=== PATIENT | male | born 1985 | race Caucasian/White ===

== ENCOUNTER 2025-06-24 13:46 | Inpatient (IN) | payer MEDICAID, SELFPAY ==
[2025-06-24] VITALS (9 sets, daily range): BP systolic 134–182; BP diastolic 105–149; PULSE 79–135; RESP 12–20; TEMP 36.7–36.8; O2SAT 91–98; BMI 32.9; BMI 29.0
--- NOTE | 2025-06-24 14:03 | EKG12_ITS ---
Test Reason : CP Blood Pressure : */* mmHG Vent. Rate : 133 BPM Atrial Rate : 133 BPM P-R Int : 160 ms QRS Dur : 106 ms QT Int : 272 ms P-R-T Axes : 69 112 -22 degrees QTcB Int : 404 ms Sinus tachycardia Right atrial enlargement Left posterior fascicular block ST & T wave abnormality, consider anterior ischemia Abnormal ECG No previous ECGs available Confirmed by DANI SPERA, RAMONA ([id number]), proposal editor SHARA DAVILA ([id number]) on 06/27/2025 6:27:02 AM Referred By: MIGUEL/SONAL Confirmed By: RAMONA LOUISE MD
[2025-06-24 14:26] LABS: Hematocrit 38.0 % (40-54); Hemoglobin 13.2 g/dL (13.0-16.5); Immature Granulocytes Count 0.130 X10^3/uL (0.0-0.0); Mean Corp Hgb Conc 34.7 g/dL (32-36); Mean Corpuscular Volume 103.3 fL (80-94); Mean Platelet Vol. 11.0 fl (6.2-12.0); NRBC Flagged by Analyzer 0 % (0-5); Platelet Count 302 K/mm3 (150-450); RBC Distribution Width CV 14.7 % (11.6-14.6); RBC Distribution Width SD 55.8 fl (35.1-43.9); Red Blood Count 3.68 M/mm3 (4.6-6.2); White Blood Count 13.8 K/mm3 (4.4-11.0)
--- NOTE | 2025-06-24 14:45 | RAD_ITS ---
PROCEDURE: CHEST PA AND LATERAL 06/24/2025 REASON FOR EXAM: CHEST PAIN TECHNIQUE: Procedure Code: RADCXR Modality: DX Procedure: CHEST PA AND LATERAL COMPARISON: None FINDINGS: No focal consolidation. No pleural effusion or pneumothorax. Cardiac silhouette is within normal limits. No acute fractures. RAD/Chest PA and Lateral IMPRESSION: No focal consolidation. Reading Location: [id number]
[2025-06-24] MEDS: 0.9% Normal Saline (1000mL) 1,000 ML 1000 ML IV (14:54)
--- NOTE | 2025-06-24 15:01 | EDS_ITS ---
HPI History of Present Illness Chief Complaint: Substance Abuse Narrative Narrative: Chief complaint and HPI: 39-year-old male with past medical history of alcohol abuse presents for evaluation for detox as well as multiple other complaints. Patient states he drinks about a half a gallon of liquor a day, vodka. Last drink was before EMS arrival. Patient states for the past several days he has been having episodic chest pain, shortness of breath, epigastric abdominal pain. Friend in the room states that his eyes have been yellow for the past several days. Patient denies any history of cirrhosis. He feels that his abdomen is bloated. He denies any fever, chills, nausea, vomiting, dysuria. Review of systems: See HPI Medications: As listed on the chart Allergies: As listed on the chart PFSH: Per chart Vital signs: As listed on the chart. Reviewed. Physical exam: Gen: Alert and oriented but intoxicated, anxious Head: Normocephalic, atraumatic Eyes: Jaundice, PERRL, EOMI ENT: Dry mucous membranes Neck: Trachea midline CV: Tachycardic, regular rhythm, no murmurs Resp: Lungs CTA BL, no w/r/c GI: Abd soft, mildly distended, tender to palpation in the epigastrium and right upper quadrant, no r/r Musc: Full ROM, no deformity Skin: Warm, dry, jaundice Neuro: Alert, oriented, grossly intact, sensation intact Psych: Cooperative, anxious, intoxicated [facility] Medical History (Updated 06/24/25 @ 14:32 by Guera Elizabeth) Substance abuse Alcohol abuse Irregular heart beat Home Medications ?Medication ?Instructions ?Recorded ?Last Taken ?Type NK 06/24/25 Unknown History Allergy/AdvReac Type Severity Reaction Status Date / Time No Known Allergies Allergy Verified 06/24/25 13:50 Social History Smoking Status: Former smoker EXAM Physical Exam Const Vital Signs: 06/24/25 13:46 06/24/25 14:46 06/24/25 14:55 Temperature 98.3 F Temperature Source Oral Pulse Rate 90 Respiratory Rate 16 Blood Pressure 182/149 H 136/110 H Blood Pressure Mean 160 118 Pulse Ox 98 Oxygen Delivery Method Room Air Room Air 06/24/25 15:00 06/24/25 16:00 Temperature Temperature Source Pulse Rate 105 H 131 H Respiratory Rate 18 Blood Pressure 154/112 H 154/112 H Blood Pressure Mean 126 126 Pulse Ox 91 Oxygen Delivery Method MDM MDM MDM Narrative Medical decision making narrative: 39-year-old male with past medical history of alcohol abuse presents for evaluation for detox as well as multiple other complaints. Patient states he drinks about a half a gallon of liquor a day, vodka. Last drink was before EMS arrival. Patient states for the past several days he has been having episodic chest pain, shortness of breath, epigastric abdominal pain. On presentation, patient is intoxicated and anxious. He is tachycardic and jaundice. Differential diagnosis includes but is not limited to alcohol intoxication, cirrhosis, pancreatitis, electrolyte abnormality, dehydration CHF, ACS. NS bolus, Ativan ordered for symptoms. Laboratory workup ordered including CT abdomen and pelvis. CBC with mild leukocytosis of 13.8. No anemia. Platelets unremarkable. BMP shows dehydration with mild anion gap of 16. Likely secondary to alcoholic ketosis. No GABBY. Alcohol level 319. CT abdomen pelvis shows extensive hepatic steatosis and question cirrhosis. Hepatomegaly. Moderate ascites. Acute hepatitis is not entirely excluded. Gallbladder wall is thickened which may be reactive to adjacent inflamed hepatic tissue. Scattered mild thickening of the small bowel wall which may reflect enteritis. Small hiatal hernia. INR normal. Lipase elevated at 117. No pancreatitis seen on CT abdomen pelvis. CMP shows hyperbilirubinemia with a bilirubin of 6.46. Direct bilirubin of 5.04. AST transaminitis of 251. Transaminitis is consistent with alcoholic transaminitis. Given elevation in direct bilirubin, ultrasound of the gallbladder ordered to assess for choledocholithiasis. Alkaline phosphatase elevated at 778. BNP unremarkable. Troponin unremarkable. Ultrasound of the gallbladder pending at this time. Patient signed out to oncoming physician. Plan will be for admission once ultrasound has resulted. EKG: Interpreted by me/EM physician: EKG shows sinus tachycardia with a heart rate of 133. Nonspecific ST changes. Diagnostic: Interpreted by me/EM physician: Chest x-ray doubt pneumonia, effusion, cardiomegaly, pneumothorax Impression: 1. Alcohol abuse with alcohol intoxication 2. Alcohol abuse requesting alcohol detox 3. Hyperbilirubinemia 4. Alcoholic transaminitis 5. Alcoholic ketosis Lab Data Labs: Laboratory Results - last 24 hr 06/24/25 06/24/25 06/24/25 14:10 14:30 15:42 WBC 13.8 H RBC 3.68 L Hgb 13.2 Hct 38.0 L MCV 103.3 H MCH 35.9 H MCHC 34.7 RDW Std Deviation 55.8 H RDW Coeff of Brodie 14.7 H Plt Count 302 MPV 11.0 Immature Gran % (Auto) 0.900 Neut % (Auto) 79.1 H Lymph % (Auto) 12.7 L [place] % (Auto) 6.4 Eos % (Auto) 0.3 Baso % (Auto) 0.6 Absolute Neuts (auto) 10.9 H Absolute Lymphs (auto) 1.75 Nucleated RBC % 0 PT 15.5 H INR 1.2 APTT 32.8 Sodium 134 Potassium 3.4 Chloride 97 L Carbon Dioxide 21.4 Anion Gap 16 H BUN 7 Creatinine 0.52 L Estim Creat Clear Calc 228.31 Est GFR (MDRD) Non-Af 131 BUN/Creatinine Ratio 12.6 Glucose 110 H Calcium 7.7 Total Bilirubin 6.46 H Direct Bilirubin 5.04 H AST 251 H ALT 36 Alkaline Phosphatase 778 H Troponin T High Sens < 6 Troponin T Hi Sens 2 Hr NT pro BNP II < 36 Total Protein 6.5 Albumin 2.5 L Globulin 4.0 Lipase 117 H Ethyl Alcohol 06/24/25 06/24/25 16:28 Unknown WBC RBC Hgb Hct MCV MCH MCHC RDW Std Deviation RDW Coeff of Brodie Plt Count MPV Immature Gran % (Auto) Neut % (Auto) Lymph % (Auto) [place] % (Auto) Eos % (Auto) Baso % (Auto) Absolute Neuts (auto) Absolute Lymphs (auto) Nucleated RBC % PT INR APTT Sodium Potassium Chloride Carbon Dioxide Anion Gap BUN Creatinine Estim Creat Clear Calc Est GFR (MDRD) Non-Af BUN/Creatinine Ratio Glucose Calcium Total Bilirubin Direct Bilirubin AST ALT Alkaline Phosphatase Troponin T High Sens Troponin T Hi Sens 2 Hr 7 NT pro BNP II Total Protein Albumin Globulin Lipase Ethyl Alcohol 319.0 H* Radiography Diagnostic Testing: Clinical Impression(s) from Imaging Studies Chest X-Ray 06/24/25 14:45 IMPRESSION: No focal consolidation. Reading Location: [facility] Abdomen/Pelvis CT 06/24/25 15:10 IMPRESSION: Extensive hepatic steatosis and question cirrhosis. Hepatomegaly. Moderate ascites. Acute hepatitis is not entirely excluded. Gallbladder wall is thickened which may be reactive to adjacent inflamed hepatic tissue. Scattered mild thickening of the small bowel wall which may reflect enteritis. Small hiatal hernia. Reading Location: [id number] Discharge Plan Triage Chief Complaint: Substance Abuse ED Provider: Mike Laird Dx/Rx/DC Orders Prescriptions: No Action NK Primary Care Provider: Care Physician,No Primary Referrals: Care Physician,No Primary [Primary Care Provider, Medical] Print Language: Latvian
[2025-06-24 15:07] LABS: Troponin T High Sensitivity < 6 ng/L (<=22)
[2025-06-24 15:10] LABS: Anion Gap 16 (5-15); BUN 7 mg/dL (4-19); BUN/Creat Ratio 12.6 RATIO (10-20); Calcium,Total 7.7 mg/dL (7.6-11.0); Carbon Dioxide 21.4 mmol/L (21.0-32.0); Chloride 97 mmol/L (98-108); Estimated Creatinine Clearance 228.31 ml/min (50-250); Glucose 110 mg/dL (70-99); Potassium 3.4 mmol/L (3.3-5.1)
--- NOTE | 2025-06-24 15:10 | CT_ITS ---
PROCEDURE: ABDOMEN/PELVIS W IV CONT ONLY 06/24/2025 REASON FOR EXAM: ABDOMINAL PAIN TECHNIQUE: Procedure Code: [id number] Modality: CT Procedure: ABDOMEN/PELVIS W IV CONT ONLY Coronal and Sagittal reconstruction series were provided. CONTRAST: 100 mL of Isovue 370 One or more dose reduction techniques were used (e.g., Automated exposure control, adjustment of the mA and/or kV according to patient size, use of iterative reconstruction technique. RADIATION DOSE SUMMARY: DLP: 1110 mGycm COMPARISON: None FINDINGS: Limited sections of the lung bases demonstrate no focal pulmonary mass or consolidations. Right base subsegmental atelectasis. The spleen, pancreas, and both adrenal glands demonstrate no acute findings. Hepatic steatosis with nodular liver contour which may reflect cirrhosis. Hepatomegaly to 20.8 cm. Gallbladder wall is thickened which may be reactive to adjacent inflamed hepatic tissue. Small hiatal hernia; otherwise stomach is unremarkable. Scattered mild thickening of the small bowel wall which may reflect enteritis. The appendix is not clearly identified, although there are no secondary signs of appendicitis. No colonic obstruction. Moderate ascites. No free fluid. 1.1 x 1.0 cm cyst within the left kidney. The right kidney is unremarkable. No hydronephrosis. The urinary bladder is partially distended. The pelvic structures are intact. There is no solid pelvic mass. No significant lymphadenopathy. The aorta and IVC demonstrate no acute findings. Mild atherosclerosis of the abdominal vasculature. Visualized osseous structures demonstrate no acute abnormality. CT/Abdomen/Pelvis W IV Cont ONLY IMPRESSION: Extensive hepatic steatosis and question cirrhosis. Hepatomegaly. Moderate as cites. Acute hepatitis is not entirely excluded. Gallbladder wall is thickened which may be reactive to adjacent inflamed hepati c tissue. Scattered mild thickening of the small bowel wall which may reflect enteritis. Small hiatal hernia. Reading Location: [id number]
[2025-06-24 15:38] LABS: Alcohol, Blood (Medical)-Serum 319.0 mg/dL (<=10.0)
[2025-06-24 16:03] LABS: Prothrombin Time (Protime)PT. 15.5 SECONDS (11.7-14.9)
[2025-06-24 16:04] LABS: Partial Thromboplast Time 32.8 Seconds (24.1-36.2)
[2025-06-24] MEDS: Famotidine 200 MG/20 ML MDV 20 MG in 0.9% Normal Saline (Pres. free 8 ML 300 MG IV (16:13)
[2025-06-24 16:22] LABS: AST(SGOT) 251 U/L (<=37); Alanine Aminotransfer ALT/SGPT 36 U/L (<=46); Albumin, Serum 2.5 g/dL (3.5-5.0); Alkaline Phosphatase 778 U/L (40-129); Bilirubin, Direct 5.04 mg/dL (0.00-0.30); Globulin 4.0 g/dL (2.2-4.2); Lipase 117 U/L (13-75)
[2025-06-24 16:23] LABS: Pro- Brain NATRIURETIC PEPTIDE < 36 pg/mL (<=450)
--- NOTE | 2025-06-24 16:27 | US_ITS ---
PROCEDURE: GALLBLADDER 06/24/2025 REASON FOR EXAM: HYPERBILIRUBINEMIA COMPARISON: Same day CT on 06/24/2025 FINDINGS: GALLBLADDER: No gallstones. Gallbladder sludge noted. Mild thickening of the gallbladder to 3.6 mm. No pericholecystic fluid. Negative Draper sign. Question nodular liver contour. COMMON BILE DUCT: Measures 10.2 Mm. No intrahepatic biliary dilatation. LIVER: Enlarged to 19.9 cm. Increased echogenicity. No definite hepatic mass. RIGHT KIDNEY: Normal in size and echogenicity. No mass. No urinary stones. No hydronephrosis. Pancreas: Not well visualized. Ascites noted. US/Gallbladder IMPRESSION: Hepatomegaly and hepatic steatosis. Question nodular liver contour which may r eflect cirrhosis. Nonspecific dilation of the CBD. Ascites noted. No acute cholecystitis. Reading Location: [id number]
--- NOTE | 2025-06-24 17:02 | ED.RN ---
this RN went into room to medicate with pain/nausea meds. Pt. has urinated all over self and floor and was attempting to clean up. Pt. was ambulate to bathroom and given fresh sheets and blankets and a bag for dirty clothes.
--- NOTE | 2025-06-24 17:09 | CM.ED ---
Social work Reason for referral: no PCP Referral source: case find SW entered patient's room, introducing self and role at [facility]. Patient welcomed SW visit and was observed laying on side in bed. Patient confirmed not having a PCP and accepted resources of [facility] Provider Directory and Kim Maxwell information. Patient was observed having slurred speech and patient was quick to dismiss SW from room when asking if further resources were needed at this time. Of note, patient is intoxicated at this time; SW to follow as needed. Azucena Botello, [employer] OPERATOR HELPER, EMANATIONS ANALYSIS TECHNICIAN
[2025-06-24 17:21] LABS: Troponin T High Sens 2 HR 7 ng/L (<=22)
--- NOTE | 2025-06-24 18:54 | PCM.HP.STD ---
HPI - General General Date of Admission: 06/24/25 Date of Service: 06/24/25 Chief Complaint: Alcohol detox HPI Narrative YUDI MCGOWAN, is a 39 M who presented to the emergency department at [facility] 06/24/2025 requesting detox from alcohol. Patient states he has been drinking heavily for the last 2 years. He states he drink intermittently before and he has had substance abuse problems previously with cocaine and went through a stent and inpatient rehab for that forced by his parents to be able to come back to work. He stated within the last 2 years he has been heavily drinking at least a half a gallon of vodka every 2 days. His last drink was just prior to presentation. He has never been through alcohol detox previously. He has never had seizure. He is currently unemployed. Vital signs on presentation showed temperature 98, heart rate 105, blood pressure 136/110, respiratory was 18 and pulse ox was 91 to 96% on room air. CBC shows a leukocytosis with a white count of 13.8 and a left shift with a 79.1% neutrophilia. Coags show a mildly elevated PTT at 15.5. Chemistry panel shows normal renal function electrolytes however he has markedly abnormal liver functions with a total bilirubin of 6.46, direct bilirubin of 5.04 and an AST of 251. His alk phos is 778. Troponin is negative x 3. proBNP is 36 and lipase was 117. Ethyl alcohol level was 319. EKG shows sinus tachycardia. Chest x-ray shows no focal consolidation. CT of the abdomen pelvis showed extensive hepatosteatosis with questionable cirrhosis, hepatomegaly, moderate ascites, thickening of the gallbladder wall, mild thickening of the small bowel and small hiatal hernia. Gallbladder ultrasound showed nonspecific dilation of the common bile duct with ascites and no acute cholecystitis, liver contour was suggestive of cirrhosis. Patient will be admitted to general medical floor for what is to be expected greater than 2 midnights for alcohol detox. [facility] Medical History Anxiety Depression Hypertension GERD (gastroesophageal reflux disease) Substance abuse Alcohol abuse Irregular heart beat Home Medications ?Medication ?Instructions ?Recorded ?Last Taken ?Type NK 06/24/25 Unknown History Allergy/AdvReac Type Severity Reaction Status Date / Time No Known Allergies Allergy Verified 06/24/25 13:50 no significant family history no surgical history Social History (Updated 06/24/25 @ 21:[address] Sasha Alegre, DO) Smoking Status: Former smoker alcohol intake: current alcohol intake frequency: other Alcohol type: hard liquor details: Patient drinks 1 gallon of vodka every 2 days substance use type: former substance user Date of last use: Cocaine ROS Constitutional Constitutional: Denies anorexia, change in weight, chills, fatigue, fever(s), malaise, night sweats, weakness or other Eyes Eyes: Denies blurry vision, change in eye color, change in vision, discharge from eye(s), double vision, erythema, eye pain, loss of vision or other ENT HEENT: Denies abnormal hearing, dysphagia, ear pain, epistaxis, headache(s), hearing loss, nasal congestion, nasal discharge, post nasal drip, sinus pressure, sore throat or other Cardiovascular Cardiovascular: Denies chest pain, claudication, dyspnea on exertion, edema, lightheadedness, orthopnea, palpitations, paroxysmal nocturnal dyspnea, rapid heart rate, syncope or other Respiratory/Chest Respiratory/Chest: Denies cough, dyspnea, excessive phlegm production, hemoptysis, productive cough, shortness of breath at rest, shortness of breath with exertion, wheezing or other Gastrointestinal Gastrointestinal: Reports abdominal pain and nausea; Denies coffee ground emesis, constipation, diarrhea, dyspepsia, hematemesis, hematochezia, loose stools, melena, vomiting or other Genitourinary Genitourinary: Denies burning urination, difficulty urinating, dysuria, hematuria, nocturia, urinary frequency, urinary hesitancy, urinary incontinence, urinary urgency or other Musculoskeletal Musculoskeletal: Denies arthralgias, back pain, joint pain, joint stiffness, joint swelling, myalgias, neck pain or other Neurologic Neurologic: Denies abnormal gait, abnormal speech, confusion, disequilibrium, dizziness, focal weakness, headache(s), numbness, paresthesias, seizure-like activity, seizures, syncope, tingling, tremor(s) or other Psychiatric Psychiatric: Denies anxiety, depression, homicidal ideation, suicidal ideation or other Endocrine Endocrinology: Denies change in body appearance, cold intolerance, excessive sweating, heat intolerance, polydipsia, polyuria or other Hematologic/Lymphatic Hematologic/Lymphatic: Denies anemia, easy bleeding, easy bruising, lymphadenopathy or other Allergic/Immunologic Allergic/Immunologic: Denies rhinitis, hives, eczemia, asthma or other Vital Signs Vital Signs Vital Signs: 06/24/25 13:46 06/24/25 14:46 06/24/25 14:55 Temperature 98.3 F Temperature Source Oral Pulse Rate 90 Respiratory Rate 16 Blood Pressure 182/149 H 136/110 H Blood Pressure Mean 160 118 Pulse Ox 98 Oxygen Delivery Method Room Air Room Air 06/24/25 15:00 06/24/25 16:00 06/24/25 18:07 Temperature Temperature Source Pulse Rate 105 H 131 H 135 H Respiratory Rate 18 18 Blood Pressure 154/112 H 154/112 H 168/124 H Blood Pressure Mean 126 126 138 Pulse Ox 91 96 Oxygen Delivery Method Room Air Weight Weight: 104.2 kg Body Mass Index (BMI) 32.9 Physical Exam Const alert, oriented x3 and well nourished; Negative for average body habitus or healthy appearing Constitutional Narrative: Overweight, tremulous, middle-aged, white male, walking around room putting his gown on, appears slightly confused but cooperative, does not appear toxic, does look older than stated age General Appearance: cooperative HEENT normocephalic, head/scalp atraumatic, hearing grossly normal bilaterally and moist oral mucous membranes HEENT Narrative: Mallampati 2-3, no thrush Resp normal respiratory effort, no retractions, no use of accessory muscles and clear to auscultation bilaterally Auscultation: Negative for rales, rhonchi or wheezes Cardio regular rhythm, S1 normal heart sound, S2 normal heart sound, no murmurs, no rub, no gallops and no clicks; Negative for regular rate Cardio Narrative: Tachycardic GI normal to inspection, nondistended, normoactive bowel sounds and soft to palpation GI Narrative: Mild tenderness in epigastrium, no rebound Extremity no clubbing, cyanosis or edema Extremity Narrative: 2+ pedal pulses Neuro moves all extremities and no focal motor deficits Neuro Narrative: Mild tremor, ambulates independently, speech is slightly slurred due to intoxication Psych affect normal Psych Narrative: Thankful for treatment, interacts appropriately Results Lab / Micro Data 06/24/25 14:10 06/24/25 14:30 Labs: Laboratory Results - last 24 hr 06/24/25 14:10: WBC 13.8 H, RBC 3.68 L, Hgb 13.2, Hct 38.0 L, MCV 103.3 H, MCH 35.9 H, MCHC 34.7, RDW Std Deviation 55.8 H, RDW Coeff of Brodie 14.7 H, Plt Count 302, MPV 11.0, Immature Gran % (Auto) 0.900, Neut % (Auto) 79.1 H, Lymph % (Auto) 12.7 L, [place] % (Auto) 6.4, Eos % (Auto) 0.3, Baso % (Auto) 0.6, Absolute Neuts (auto) 10.9 H, Absolute Lymphs (auto) 1.75, Nucleated RBC % 0 06/24/25 14:30: Sodium 134, Potassium 3.4, Chloride 97 L, Carbon Dioxide 21.4, Anion Gap 16 H, BUN 7, Creatinine 0.52 L, Estim Creat Clear Calc 228.31, Est GFR (MDRD) Non-Af 131, BUN/Creatinine Ratio 12.6, Glucose 110 H, Calcium 7.7, Troponin T High Sens < 6 06/24/25 15:42: PT 15.5 H, INR 1.2, APTT 32.8, Total Bilirubin 6.46 H, Direct Bilirubin 5.04 H, AST 251 H, ALT 36, Alkaline Phosphatase 778 H, NT pro BNP II < 36, Total Protein 6.5, Albumin 2.5 L, Globulin 4.0, Lipase 117 H 06/24/25 16:28: Troponin T Hi Sens 2 Hr 7 06/24/25 : Ethyl Alcohol 319.0 H* Imaging Radiology Impression Chest X-Ray 06/24/25 14:45 IMPRESSION: No focal consolidation. Reading Location: [facility] Abdomen/Pelvis CT 06/24/25 15:10 IMPRESSION: Extensive hepatic steatosis and question cirrhosis. Hepatomegaly. Moderate ascites. Acute hepatitis is not entirely excluded. Gallbladder wall is thickened which may be reactive to adjacent inflamed hepatic tissue. Scattered mild thickening of the small bowel wall which may reflect enteritis. Small hiatal hernia. Reading Location: [facility] Gallbladder Ultrasound 06/24/25 16:27 IMPRESSION: Hepatomegaly and hepatic steatosis. Question nodular liver contour which may reflect cirrhosis. Nonspecific dilation of the CBD. Ascites noted. No acute cholecystitis. Reading Location: [id number] Assessment & Plan Assessment/Plan (1) Admitted to alcohol detoxification center: (2) Alcohol abuse: (3) Alcoholic hepatitis: (4) Leukocytosis: (5) Tachycardia: PLAN: Plan Alcohol abuse with pending alcohol withdrawal - Patient drinks a gallon of vodka every 2 days - Has never been through alcohol detoxification previously - Phenobarbital taper as ordered - As needed Ativan with CIWA - Supportive medications for symptoms related alcohol withdrawal - Start thiamine and folate - 180 consultation for assistance with discharge planning - case management/social work consultation for assistance with discharge planning Alcoholic hepatitis/cirrhosis - Patient with markedly elevated LFTs and bilirubin - Maddrey score is 24 so not a candidate for steroids - Patient does have moderate ascites and may need to start diuretic once he is more clinically stable - Could consider nadolol as well - Suggest referral to GI after discharge Leukocytosis - Suspect reactive - No signs of infection - Monitor clinically with repeat lab in a.m. Tachycardia - Related to alcohol withdrawal - Monitor History of cocaine abuse - Patient denies any ongoing use since he has gone through rehab DVT prophylaxis - Low risk - Encourage frequent and early ambulation CODE STATUS - Full code Charges/Coding Visit Charges Inpatient E&M: 81022 Init Hosp L2
[2025-06-24 19:16] LABS: Troponin T High Sens 4 HR 8 ng/L (<=22)
[2025-06-24] MEDS: 0.9% Saline Lock 10 ML Syringe IV (20:31)
[2025-06-24] MEDS: Lactated Ringers 1,000 ML 100 ML IV (20:31)
[2025-06-25] VITALS (7 sets, daily range): BP systolic 146–166; BP diastolic 115–130; PULSE 80–128; RESP 16–18; TEMP 36.5–37.7; O2SAT 95–98; BMI 29.0
[2025-06-25 00:35] LABS: Color, Urine Amber (Yellow); Glucose, Dipstick Normal (Normal); Ketone-Dipstick Negative (Negative); Leukocyte Esterase-Dipstick 25 /ul (Negative); Nitrite-Dipstick Positive (Negative); Occult Blood-Urine 10 /ul (Negative); Protein-Dipstick 30 mg/dl (Negative); Specific Gravity, Urine 1.015 (1.002-1.030)
[2025-06-25 00:41] LABS: Urine Bilirubin Dipstick 6 mg/dL (Negative)
[2025-06-25 00:45] LABS: Mucous, Urine 1+ /hpf (<or=2+); Red Blood Cells-Urine 0-5 SEEN /hpf (0-5); Squamous Epithelial Cells - UA 0-5 SEEN /hpf (0-5)
[2025-06-25 01:21] LABS: Barbiturate Urine NEGATIVE (< 200 ng/mL); Benzodiazepine Urine PRESUMPTIVE POSITIVE (< 200 ng/mL); PCP Urine NEGATIVE (< 25 ng/mL); THC Urine NEGATIVE (< 50 ng/mL)
[2025-06-25 06:55] LABS: Hematocrit 35.3 % (40-54); Hemoglobin 11.9 g/dL (13.0-16.5); Immature Granulocytes Count 0.060 X10^3/uL (0.0-0.0); Mean Corp Hgb Conc 33.7 g/dL (32-36); Mean Corpuscular Volume 103.8 fL (80-94); Mean Platelet Vol. 11.0 fl (6.2-12.0); NRBC Flagged by Analyzer 0 % (0-5); Platelet Count 215 K/mm3 (150-450); RBC Distribution Width CV 14.8 % (11.6-14.6); RBC Distribution Width SD 56.5 fl (35.1-43.9); Red Blood Count 3.40 M/mm3 (4.6-6.2); White Blood Count 10.3 K/mm3 (4.4-11.0)
[2025-06-25] MEDS: hydrOXYzine PAM 25 MG Capsule 50 MG PO (07:02)
[2025-06-25] MEDS: 0.9% Saline Lock 10 ML Syringe IV ×3 (07:02→21:45)
[2025-06-25 07:19] LABS: AST(SGOT) 226 U/L (<=37); Alanine Aminotransfer ALT/SGPT 35 U/L (<=46); Albumin, Serum 2.5 g/dL (3.5-5.0); Alkaline Phosphatase 766 U/L (40-129); Anion Gap 14 (5-15); BUN 7 mg/dL (4-19); BUN/Creat Ratio 14.7 RATIO (10-20); Calcium,Total 7.7 mg/dL (7.6-11.0); Carbon Dioxide 21.1 mmol/L (21.0-32.0); Chloride 99 mmol/L (98-108); Estimated Creatinine Clearance 223.67 ml/min (50-250); Globulin 3.9 g/dL (2.2-4.2); Glucose 92 mg/dL (70-99); Magnesium 1.6 mg/dL (1.5-2.2); Potassium 3.7 mmol/L (3.3-5.1)
[2025-06-25] MEDS: Thiamine Hydrochloride 100 MG Tablet PO (08:31)
--- NOTE | 2025-06-25 10:26 | PCM.PN.HOSP ---
Subjective Subjective A little hypertensive overnight but his CIWA score is a 9 if he remains hypertensive as his CIWA score normalizes may consider adjusting medications Objective Data Objective Data Vital Signs: Vital Signs Temp Pulse Resp BP Pulse Ox O2 Del Method 97.7 F L 124 H 18 166/127 H 95 Room Air 06/25/25 08:34 06/25/25 08:34 06/25/25 08:34 06/25/25 08:34 06/25/25 08:34 06/25/25 08:34 Oxygen Delivery Method Room Air Weight: 202 lb 6.15 oz Body Mass Index (BMI) 29.0 Intake & Output: Intake and Output for Last 24 Hours 06/24/25 06/25/25 06/26/25 03:59 03:59 03:59 Intake Total 1010 / 1010 1600 / 1600 Output Total 400 / 400 Balance 1010 / 1010 1200 / 1200 Lab / Micro Data 06/25/25 06:25 06/25/25 06:25 Labs: Laboratory Results - last 24 hr 06/24/25 14:10: WBC 13.8 H, RBC 3.68 L, Hgb 13.2, Hct 38.0 L, MCV 103.3 H, MCH 35.9 H, MCHC 34.7, RDW Std Deviation 55.8 H, RDW Coeff of Brodie 14.7 H, Plt Count 302, MPV 11.0, Immature Gran % (Auto) 0.900, Neut % (Auto) 79.1 H, Lymph % (Auto) 12.7 L, [place] % (Auto) 6.4, Eos % (Auto) 0.3, Baso % (Auto) 0.6, Absolute Neuts (auto) 10.9 H, Absolute Lymphs (auto) 1.75, Nucleated RBC % 0 06/24/25 14:30: Sodium 134, Potassium 3.4, Chloride 97 L, Carbon Dioxide 21.4, Anion Gap 16 H, BUN 7, Creatinine 0.52 L, Estim Creat Clear Calc 228.31, Est GFR (MDRD) Non-Af 131, BUN/Creatinine Ratio 12.6, Glucose 110 H, Calcium 7.7, Troponin T High Sens < 6 06/24/25 15:42: PT 15.5 H, INR 1.2, APTT 32.8, Total Bilirubin 6.46 H, Direct Bilirubin 5.04 H, AST 251 H, ALT 36, Alkaline Phosphatase 778 H, NT pro BNP II < 36, Total Protein 6.5, Albumin 2.5 L, Globulin 4.0, Lipase 117 H 06/24/25 16:28: Troponin T Hi Sens 2 Hr 7 06/24/25 18:26: Troponin T Hi Sens 4Hr 8 06/24/25 : Ethyl Alcohol 319.0 H* 06/25/25 00:23: Urine Color Eli, Urine Clarity Clear, Urine pH 6.5, Ur Specific [place] 1.015, Urine Protein 30 H, Urine Glucose (UA) Normal, Urine Ketones Negative, Urine Occult Blood 10 H, Urine Nitrite Positive H, Urine Bilirubin 6 H, Urine Urobilinogen 12 H, Ur Leukocyte Esterase 25 H, Urine RBC 0-5 SEEN, Urine WBC 0 SEEN, Ur Squamous Epith Cells 0-5 SEEN, Amorphous Sediment 1+, Urine Bacteria 2+, Urine Mucus 1+, Urine Opiates Screen PRESUMPTIVE POSITIVE, U Buprenorphine Qual NEGATIVE, Ur Oxycodone Screen NEGATIVE, Urine Methadone Screen NEGATIVE, Urine Fentanyl Screen NEGATIVE, Ur Barbiturates Screen NEGATIVE, Ur Phencyclidine Scrn NEGATIVE, Ur Amphetamines Screen PRESUMPTIVE POSITIVE, U Benzodiazepines Scrn PRESUMPTIVE POSITIVE, Urine Cocaine Screen NEGATIVE, U Cannabinoids Screen NEGATIVE 06/25/25 06:25: WBC 10.3, RBC 3.40 L, Hgb 11.9 L, Hct 35.3 L, MCV 103.8 H, MCH 35.0 H, MCHC 33.7, RDW Std Deviation 56.5 H, RDW Coeff of Brodie 14.8 H, Plt Count 215, MPV 11.0, Immature Gran % (Auto) 0.600, Neut % (Auto) 80.4 H, Lymph % (Auto) 9.9 L, [place] % (Auto) 8.3, Eos % (Auto) 0.2, Baso % (Auto) 0.6, Absolute Neuts (auto) 8.3 H, Absolute Lymphs (auto) 1.01, Nucleated RBC % 0, Sodium 134, Potassium 3.7, Chloride 99, Carbon Dioxide 21.1, Anion Gap 14, BUN 7, Creatinine 0.50 L, Estim Creat Clear Calc 223.67, Est GFR (MDRD) Non-Af 132, BUN/Creatinine Ratio 14.7, Glucose 92, Calcium 7.7, Phosphorus 2.0 L, Magnesium 1.6, Total Bilirubin 6.97 H, AST 226 H, ALT 35, Alkaline Phosphatase 766 H, Total Protein 6.5, Albumin 2.5 L, Globulin 3.9, Albumin/Globulin Ratio 0.6 L, TSH 3.940 Radiography Diagnostic Testing: Radiology Impression Chest X-Ray 06/24/25 14:45 IMPRESSION: No focal consolidation. Reading Location: [facility] Abdomen/Pelvis CT 06/24/25 15:10 IMPRESSION: Extensive hepatic steatosis and question cirrhosis. Hepatomegaly. Moderate ascites. Acute hepatitis is not entirely excluded. Gallbladder wall is thickened which may be reactive to adjacent inflamed hepatic tissue. Scattered mild thickening of the small bowel wall which may reflect enteritis. Small hiatal hernia. Reading Location: [facility] Gallbladder Ultrasound 06/24/25 16:27 IMPRESSION: Hepatomegaly and hepatic steatosis. Question nodular liver contour which may reflect cirrhosis. Nonspecific dilation of the CBD. Ascites noted. No acute cholecystitis. Reading Location: [facility] Physical Exam Narrative General: Alert, Oriented x3, Cooperative, mild restlessness HEENT: Atraumatic, PERRLA, EOMI, Normocephalic Oral: Moist Mucosa Neck: Supple, No JVD Lungs: Clear to auscultation, Normal air movement, No rhonchi, No wheeze, No rales Cardiovascular: Regular rate, Regular Rhythm, Normal S1, Normal S2, No murmurs Abdomen: Soft, Non Tender, Non-Distended, No Hepato-splenomegaly Extremities: No edema, Capillary Refill Less than 3 Seconds Skin: No rashes, No breakdown Musculoskeletal: No Tenderness to Palpation of Joints or Extremities Neurological: No focal neurological deficits, moves all extremities, slight tremors Psych/Mental Status: Anxious Assessment & Plan Assessment/Plan (1) Alcohol abuse: PLAN: Plan 1. Alcohol abuse requesting detox with alcoholic hepatitis with a reactive leukocytosis ? CIWA score of 9 today ? Continue with the alcohol withdrawal protocol ? Will follow CMP in the morning, bilirubin still little bit elevated though does not require steroids at this time 2. Hypophosphatemia ? Will replace with potassium phosphate today DVT: Ambulation Charges/Coding Visit Charges Inpatient E&M: 94476 Subs Hosp L2
[2025-06-25] MEDS: Potassium Phosphate 21 MM in 0.9% Normal Saline (250mL Bag) 250 ML 84 MM IV (11:16)
[2025-06-26 04:05] VITALS: BP 146/119; PULSE 135; RESP 18; TEMP 37; O2SAT 99
[2025-06-26 06:00] VITALS: BMI 29.8
[2025-06-26 07:06] LABS: AST(SGOT) 192 U/L (<=37); Alanine Aminotransfer ALT/SGPT 31 U/L (<=46); Albumin, Serum 2.5 g/dL (3.5-5.0); Alkaline Phosphatase 756 U/L (40-129); Anion Gap 12 (5-15); BUN 7 mg/dL (4-19); BUN/Creat Ratio 12.2 RATIO (10-20); Calcium,Total 7.9 mg/dL (7.6-11.0); Carbon Dioxide 22.2 mmol/L (21.0-32.0); Chloride 97 mmol/L (98-108); Estimated Creatinine Clearance 202.38 ml/min (50-250); Globulin 4.0 g/dL (2.2-4.2); Glucose 104 mg/dL (70-99); Potassium 3.4 mmol/L (3.3-5.1)
[2025-06-26 07:46] VITALS: O2SAT 94
[2025-06-26 08:59] VITALS: BP 147/116; PULSE 134; RESP 18; TEMP 36.8; O2SAT 96
[2025-06-26] MEDS: Thiamine Hydrochloride 100 MG Tablet PO (09:04)
--- NOTE | 2025-06-26 09:11 | PCM.PN.HOSP ---
Subjective Subjective CIWA score of 8, blood pressures are still mildly elevated Objective Data Objective Data Vital Signs: Vital Signs Temp Pulse Resp BP Pulse Ox O2 Del Method 98.2 F 134 H 18 147/116 H 96 Room Air 06/26/25 08:59 06/26/25 08:59 06/26/25 08:59 06/26/25 08:59 06/26/25 08:59 06/26/25 08:59 Oxygen Delivery Method Room Air Weight: 208 lb 5.389 oz Body Mass Index (BMI) 29.8 Intake & Output: Intake and Output for Last 24 Hours 06/25/25 06/26/25 06/27/25 03:59 03:59 03:59 Intake Total 1010 / 1010 3157 / 3157 500 / 500 Output Total 1200 / 1200 Balance 1010 / 1010 1957 / 1957 500 / 500 Lab / Micro Data 06/25/25 06:25 06/26/25 06:06 Labs: Laboratory Results - last 24 hr 06/26/25 06:06: Sodium 131 L, Potassium 3.4, Chloride 97 L, Carbon Dioxide 22.2, Anion Gap 12, BUN 7, Creatinine 0.56 L, Estim Creat Clear Calc 202.38, Est GFR (MDRD) Non-Af 128, BUN/Creatinine Ratio 12.2, Glucose 104 H, Calcium 7.9, Total Bilirubin 8.37 H, AST 192 H, ALT 31, Alkaline Phosphatase 756 H, Total Protein 6.5, Albumin 2.5 L, Globulin 4.0, Albumin/Globulin Ratio 0.6 L Physical Exam Narrative General: Alert, Oriented x3, Cooperative, mild restlessness HEENT: Atraumatic, PERRLA, EOMI, Normocephalic Oral: Moist Mucosa Neck: Supple, No JVD Lungs: Clear to auscultation, Normal air movement, No rhonchi, No wheeze, No rales Cardiovascular: Regular rate, Regular Rhythm, Normal S1, Normal S2, No murmurs Abdomen: Soft, Non Tender, Non-Distended, No Hepato-splenomegaly Extremities: No edema, Capillary Refill Less than 3 Seconds Skin: No rashes, No breakdown Musculoskeletal: No Tenderness to Palpation of Joints or Extremities Neurological: No focal neurological deficits, moves all extremities, slight tremors Psych/Mental Status: Anxious Assessment & Plan Assessment/Plan (1) Alcohol abuse: PLAN: Plan 1. Alcohol abuse requesting detox with alcoholic hepatitis with a reactive leukocytosis ? CIWA score of 9 today ? Continue with the alcohol withdrawal protocol ? Will follow CMP in the morning, bilirubin still little bit elevated though does not require steroids at this time DVT: Ambulation Charges/Coding Visit Charges Inpatient E&M: 42334 Subs Hosp L2
[2025-06-26] MEDS: Polyethylene Glycol 3350 17 GM PACKET PO ×2 (10:04→20:43)
[2025-06-26 14:00] VITALS: BP 144/119; PULSE 133; RESP 18; TEMP 36.2; O2SAT 98
[2025-06-26 20:35] VITALS: BP 146/127; PULSE 139; RESP 18; TEMP 37.1; O2SAT 94
[2025-06-27 02:22] VITALS: BP 127/91; PULSE 127; RESP 18; TEMP 37.4; O2SAT 100
[2025-06-27 06:00] VITALS: BMI 29.9
[2025-06-27 07:05] LABS: AST(SGOT) 232 U/L (<=37); Alanine Aminotransfer ALT/SGPT 29 U/L (<=46); Albumin, Serum 2.5 g/dL (3.5-5.0); Alkaline Phosphatase 735 U/L (40-129); Anion Gap 12 (5-15); BUN 7 mg/dL (4-19); BUN/Creat Ratio 11.1 RATIO (10-20); Calcium,Total 8.0 mg/dL (7.6-11.0); Carbon Dioxide 23.5 mmol/L (21.0-32.0); Chloride 97 mmol/L (98-108); Estimated Creatinine Clearance 171.97 ml/min (50-250); Globulin 4.0 g/dL (2.2-4.2); Glucose 96 mg/dL (70-99); Potassium 3.3 mmol/L (3.3-5.1)
[2025-06-27 07:34] VITALS: O2SAT 93
[2025-06-27] MEDS: Polyethylene Glycol 3350 17 GM PACKET PO (08:18)
[2025-06-27] MEDS: Thiamine Hydrochloride 100 MG Tablet PO (08:18)
[2025-06-27 08:23] VITALS: BP 132/90; PULSE 124; RESP 18; TEMP 36.2; O2SAT 98
--- NOTE | 2025-06-27 10:38 | DCINST_ITS ---
Discharge Instructions DC O2, CPAP, BIPAP needs Home O2 Discharge instructions: No Dressing / Incision Discharge Activity: Return to Normal Activity Dressing / Incision Call your doctor if you observe: Fever of 101 or Higher, Shortness of breath, Dizziness, Fainting spells, Swelling in the ankles, Chest pain and Increased palpitations (irregular heartbeat) Follow Up Care Test Results: Test results from this visit will be discussed in further detail at your follow- up appointment, if applicable. Discharge Plan Admission Admit Date/Time: 06/24/25 18:48 Attending Provider: J Carlos Chamberlain Primary Care Provider: Care Physician,No Primary Consulting Providers: Sasha Alegre Discharge Orders/Prescriptions Prescriptions: No Action NK Referrals / Follow Up: Care Physician,No Primary [Primary Care Provider, Medical] Disposition Disposition (needs filled in before D/C Order can be placed): Home, Self Care
--- NOTE | 2025-06-27 10:44 | CASEMGMT ---
Social Work- SW provided resources for [facility] transportation and mental health counseling, as pt reported to nurse that he has anxiety. Pt reports no other needs at this time. SW remains available to follow. JULIANNE Gómez
--- NOTE | 2025-06-27 14:16 | DS.PCM_ITS ---
Providers Date of Admission: 06/24/25 Primary Care Physician: No Primary Care Phys Reason For Visit: ETOH DETOX Diagnosis Discharge Diagnosis (1) Alcohol abuse: Status: Acute Code(s): F10.10 - Alcohol abuse, uncomplicated Medications at Discharge Home Medications NK 06/24/25 Hospital Course Operations None Procedures None Summary of Care Provided Minutes Spent on Discharge: 39 Hospital Course: Per HPI: YUDI MCGOWAN, is a 39 M who presented to the emergency department at [facility] 06/24/2025 requesting detox from alcohol. Patient states he has been drinking heavily for the last 2 years. He states he drink intermittently before and he has had substance abuse problems previously with cocaine and went through a stent and inpatient rehab for that forced by his parents to be able to come back to work. He stated within the last 2 years he has been heavily drinking at least a half a gallon of vodka every 2 days. His last drink was just prior to presentation. He has never been through alcohol detox previously. He has never had seizure. He is currently unemployed. Vital signs on presentation showed temperature 98, heart rate 105, blood pressure 136/110, respiratory was 18 and pulse ox was 91 to 96% on room air. CBC shows a leukocytosis with a white count of 13.8 and a left shift with a 79.1% neutrophilia. Coags show a mildly elevated PTT at 15.5. Chemistry panel shows normal renal function electrolytes however he has markedly abnormal liver functions with a total bilirubin of 6.46, direct bilirubin of 5.04 and an AST of 251. His alk phos is 778. Troponin is negative x 3. proBNP is 36 and lipase was 117. Ethyl alcohol level was 319. EKG shows sinus tachycardia. Chest x- ray shows no focal consolidation. CT of the abdomen pelvis showed extensive hepatosteatosis with questionable cirrhosis, hepatomegaly, moderate ascites, thickening of the gallbladder wall, mild thickening of the small bowel and small hiatal hernia. Gallbladder ultrasound showed nonspecific dilation of the common bile duct with ascites and no acute cholecystitis, liver contour was suggestive of cirrhosis. Patient will be admitted to general medical floor for what is to be expected greater than 2 midnights for alcohol detox. Hospital Course: 1. Alcohol abuse requesting detox with alcoholic hepatitis and reactive leukocytosis?39-year-old male presented to the hospital requesting detox from alcohol. He states that he been drinking heavily for the last 2 years and that he had been drinking approximately half gallon of vodka every 2 days. He is never had a seizure with alcohol withdrawal and his last drink was just prior to being admitted. Unfortunately upon admission he refused to be part of the rehab program and in discussions he did not want to pursue either inpatient rehab or outpatient rehab. He wants to try to do it on his own. It was noted that he had elevated LFTs consistent with alcoholic hepatitis though the Madrey score was not significant enough to start him on steroids. It was discussed with him the severity of his illness but he did not seem to be too interested. CT of the abdomen and pelvis did show extensive hepatosteatosis with possible cirrhosis and moderate ascites. Over the last 2 days I had extensive discussions with him about the severity of his illness and the need to follow-up with gastroenterology, he does not want to, he thinks that he will be fine on his own and that he will be able to quit drinking and that will improve everything. We did discuss that quitting drinking will significantly help his situation but I highlighted to him that he may need significant help in this process which he denies. Unfortunately he has capacity to make his decisions and he requested to be discharged today I discussed with him the possibility of discharge and he expressed understanding of the risks and benefits of going home and would like to go home today. He did verbalize that he will quit drinking because he understands that if he continues drinking it could kill him. I recommend that he follow-up with his PCP and I recommend that he follow-up with gastroenterology as well. Physical Exam Narrative General: Alert, Oriented x3, Cooperative, mild restlessness HEENT: Atraumatic, PERRLA, EOMI, Normocephalic Oral: Moist Mucosa Neck: Supple, No JVD Lungs: Clear to auscultation, Normal air movement, No rhonchi, No wheeze, No rales Cardiovascular: Regular rate, Regular Rhythm, Normal S1, Normal S2, No murmurs Abdomen: Soft, Non Tender, Non-Distended, No Hepato-splenomegaly Extremities: No edema, Capillary Refill Less than 3 Seconds Skin: No rashes, No breakdown Musculoskeletal: No Tenderness to Palpation of Joints or Extremities Neurological: No focal neurological deficits, moves all extremities, slight tremors Psych/Mental Status: Anxious and a little flat Weight / BMI Weight Weight: 208 lb 15.971 oz Body Mass Index (BMI) 29.9 ABG / Lab / Microbiology Data 06/25/25 06:25 06/27/25 05:32 Laboratory: Laboratory Results - last 24 hr 06/27/25 05:32: Sodium 132 L, Potassium 3.3, Chloride 97 L, Carbon Dioxide 23.5, Anion Gap 12, BUN 7, Creatinine 0.66 L, Estim Creat Clear Calc 171.97, Est GFR (MDRD) Non-Af 121, BUN/Creatinine Ratio 11.1, Glucose 96, Calcium 8.0, Total Bilirubin 8.69 H, AST 232 H, ALT 29, Alkaline Phosphatase 735 H, Total Protein 6.5, Albumin 2.5 L, Globulin 4.0, Albumin/Globulin Ratio 0.6 L D/C Instructions Call your doctor if you observe: Fever of 101 or Higher, Shortness of breath, Dizziness, Fainting spells, Swelling in the ankles, Chest pain and Increased palpitations (irregular heartbeat) DC O2, CPAP, BIPAP Needs Home O2 Discharge instructions: No Meaningful Use Info Meaningful Use Meaningful Use Diagnoses (Choose all that apply): None applicable Discharge Plan Admission Admit Date/Time: 06/24/25 18:48 Attending Provider: J Carlos Chamberlain Primary Care Provider: Care Physician,No Primary Consulting Providers: Sasha Alegre Discharge Orders/Prescriptions Prescriptions: No Action NK Referrals / Follow Up: Care Physician,No Primary [Primary Care Provider, Medical] Friend,DO Gabriel [Med Staff - Active Staff, Gastroenterology] - Within 2 Weeks Disposition Disposition (needs filled in before D/C Order can be placed): Home, Self Care Charges/Coding Visit Charges Inpatient E&M: 30763 Disch Hosp >30min
== END 2025-06-27 12:14 | disposition home or self-care (01) | DRG 774 ==
LOC: ED 15:36 → MS3 19:41
PROVIDERS: Emergency Medicine; Admitting Provider Internal Medicine; Emergency Provider Surgery; Visit Provider Family Medicine
DX: F10.120 Alcohol abuse with intoxication, uncomplicated (principal); F14.11 Cocaine abuse, in remission; E83.39 Other disorders of phosphorus metabolism; K70.11 Alcoholic hepatitis with ascites; I10 Essential (primary) hypertension; K70.31 Alcoholic cirrhosis of liver with ascites; K44.9 Diaphragmatic hernia without obstruction or gangrene; K76.0 Fatty (change of) liver, not elsewhere classified; K82.8 Other specified diseases of gallbladder; K83.8 Other specified diseases of biliary tract; E86.0 Dehydration; Y90.8 Blood alcohol level of 240 mg/100 ml or more; R79.1 Abnormal coagulation profile; Z87.891 Personal history of nicotine dependence
CPT/HCPCS: 36415; 71046; 74177; 76705; 80048; 80053; 80076; 80307; 81001; 82077; 83690; 83735; 83880; 84100; 84443; 84484; 85025; 85610; 85730; 93005; 94668; 97802; 99252; 99285; Q9967; A4216; G0463; J2405

== ENCOUNTER 2025-07-23 17:59 | Emergency (ER) | payer MEDICAID, SELFPAY ==
[2025-07-23 18:00] VITALS: BP 149/132; TEMP -17.7; TEMP 0; BMI 35.6
--- OUTSIDE RECORDS SUMMARY | 2025-07-23 18:13 | XMS RPT_ITS | CCD ---
Author Organization [facility] Care Team Providers Care Technical Service Engineer Name Role Phone Marley Rico Attending UnavailTHERESA Farooq Primary Care Unavailable Care Physician, No Primary Primary Care Unava J Carlos Araujo Attending Unavailable Sasha Alegre Admitting Unavailable Sasha Alegre Consulting Unavailable Sasha Alegre Admitting Unavailable J Carlos Chamberlain Attending Unavailable Sasha Alegre Consulting Unavailable Care Physician, No Primary Primary Care Unava ilJ Carlos Cruz Consulting Unavailable Sasha Alegre Attending Unavailable Dr. Mike Laird DO Emergency Departmen t Physician Care Physician, No Primary Primary Care Physicia n Unavailable Dr. Sasha Alegre DO Admitting Physician Dr. Sasha Alegre DO Nurse Practitioner Dr. J Carlos Chamberlain MD Attending Physician Dr. Sasha Alegre DO Attending Physician Dr. J Carlos Chamberlain MD Nurse Practitioner LACHO AGUIRRE Primary Care Physician [phone] MARLEY RICO MD Consulting Unavail MARLEY Barron MD Attending Unavail LACHO Schultz Primary Care Unavaila ble Allergies Allergy Classification Reported Allergen(s) Allergy Type Date of Onset Reaction(s) Facility (1 source) Cefaclor; Translations: [cefaclor] Drug Allergy Unknown [facility] (1 source) Erythromycin; Translations: [erythromycin] Drug Allergy Unknown [facility] (1 source) Sulfonamide; Translations: [sulfa drugs] Drug allergy Unknown [facility] Medications Current Medications Medication Drug Class(es) Dates Sig (Normalized) Sig (Original) doxycycline hyclate 100 mg oral capsule (1 source) Tetracycline-clas s Drug Start: 07-13-2025 End: 07-23-2025 doxycycline hyclate 100 mg oral capsule Dose : 100 mg = 1 cap(s), Oral, BID, X 10 day(s), # 20 cap(s), 0 Refill(s), 07/23/25 9:03:00 PM EST, 106.3 Start Date: 07/13/25 Stop Date: 07/23/25 Status: Ordered Medication Dispense Status: Completed Quantity: 20.0 Unit: cap(s) Total Allowed Fills: 1 Fills Dispensed: 0 Completed/Discontinued Medications Medication Drug Class(es) Dates Sig (Normalized) Sig (Original) sertraline 50 mg oral tablet (2 sources) Serotonin Reuptake Inhibitor Start: 07-09-2019 End: 07-03-2020 Zoloft 50 mg oral tablet Dose : 50 mg = 1 tab(s), Oral, qDay, # 90 tab(s), 3 Refill(s), Pharmacy: [facility]/pharmacy #[id number] Start Date: 07/09/19 Stop Date: 07/03/20 Status: Ordered Medication Dispense Status: Completed Quantity: 90.0 Unit: tab(s) Total Allowed Fills: 4 Fills Dispensed: 0 Problems Problem Classification Problem Date Documented Da te Episodic/Chronic Alcohol-related disorders (13 sources) Alcohol abuse with intoxication, uncomplicated; Translations: [Alcohol abuse, uncomplicated] Onset: 07-03-2025 06-24-2025 Chronic Cardiac dysrhythmias (5 sources) Tachycardia, unspecified; Translations: [Tachycardia] Onset: 07-03-2025 06-24-2025 Episodic Diseases of white blood cells (5 sources) Elevated white blood cell count, unspecified; Translations: [Leukocytosis] Onset: 07-03-2025 06-24-2025 Chronic Mood disorders (1 source) Major depressive disorder 05-28-2019 Chronic Other connective tissue disease (1 source) Disorder of soft tissue; Translations: [Other specified soft tissue disorders] Onset: 07-13-2025 Episodic Other connective tissue disease (1 source) Other specified soft tissue disorders; Translations: [Other specified soft tissue disorders] Onset: 07-13-2025 Episodic Other gastrointestinal disorders (1 source) Swollen abdomen; Translations: [Abdominal distension (gaseous)] Onset: 07-13-2025 Episodic Other gastrointestinal disorders (1 source) Abdominal distension (gaseous); Translations: [Abdominal distension (gaseous)] Onset: 07-13-2025 Episodic Other liver diseases (1 source) Jaundice; Translations: [Unspecified jaundice] Onset: 07-13-2025 Episodic Other liver diseases (1 source) Unspecified jaundice; Translations: [Unspecified jaundice] Onset: 07-13-2025 Episodic Residual codes; unclassified (1 source) Edema; Translations: [Edema, unspecified] Onset: 07-13-2025 Episodic Residual codes; unclassified (1 source) Edema, unspecified; Translations: [Edema, unspecified] Onset: 07-13-2025 Episodic Skin and subcutaneous tissue infections (2 sources) Cellulitis; Translations: [Cellulitis of unspecified part of limb] Onset: 07-13-2025 Episodic Unclassified (4 sources) Admitted to alcohol detoxification center 06-24-2025 Results Test Name Value Interpretation Reference Range Facility Anion gap in Serum or Plasma Ordered By: J Carlos Chamberlain on 06-27-2025 Anion gap [Moles/Vol] 12 mmol/L - [facility] BUN/creatinine ratioOrdered By: J Carlos Chamberlain on 06-27-2025 Urea nitrogen/Creatinine [Mass ratio] 11.1 mg/mg 07-01 [facility] Bilirubin, totalOrdered By: J Carlos Chamberlain on 06-27-2025 Bilirubin [Mass/Vol] 8.69 mg/dL High 0.00-1.30 [facility] Carbon dioxide, total [Moles /volume] in Central venous bloodOrdered By: J Carlos Chamberlain on 06-27-2025 CO2 [Moles/Vol] 23.5 mmol/L 21.0-32.0 [facility] Chloride assayOrdered By: Enma Chamberlain on 06-27-2025 Chloride [Moles/Vol] 97 mmol/L Low 98-108 [facility] Comprehensive Metabolic Prof ilon 06-27-2025 Albumin [Mass/Vol] 2.5 g/dL Low 3.5-5.0 [facility] Comment on above: Performed By: #### L 501.9100, L500.2500, L501.4021, L100.0100 #### [facility] Laboratory [address] [place], [address] Albumin/Globulin [Mass ratio] 0.6 {ratio} Low 0.9-2.4 [facility] Comment on above: Performed By: #### L 501.9100, L500.2500, L501.4021, L100.0100 #### [facility] [address] [place], [address] ALK PHOS 735 U/L High 40-129 [facility] Comment on above: Performed By: #### L 501.9100, L500.2500, L501.4021, L100.0100 #### [facility] [address] [place], [address] ALT [Catalytic activity/Vol] 29 U/L Normal <=46 [facility] Comment on above: Performed By: #### L 501.9100, L500.2500, L501.4021, L100.0100 #### [facility] [address] [place], [address] AST [Catalytic activity/Vol] 232 U/L High <=37 [facility] Comment on above: Performed By: #### L 501.9100, L500.2500, L501.4021, L100.0100 #### [facility] [address] [place], [address] Bilirubin [Mass/Vol] 8.69 mg/dL High 0.00-1.30 [facility] Comment on above: Performed By: #### L 501.9100, L500.2500, L501.4021, L100.0100 #### [facility] [address] [place], [address] BUN/CRE 11.1 RATIO Normal 10-20 [facility] Comment on above: Performed By: #### L 501.9100, L500.2500, L501.4021, L100.0100 #### [facility] [address] [place], [address] Calcium [Mass/Vol] 8.0 mg/dL Normal 7.6-11.0 [facility] Comment on above: Performed By: #### L 501.9100, L500.2500, L501.4021, L100.0100 #### [facility] [address] [place], [address] Chloride [Moles/Vol] 97 mmol/L Low 98-108 [facility] Comment on above: Performed By: #### L 501.9100, L500.2500, L501.4021, L100.0100 #### [facility] [address] [place], [address] CO2 [Moles/Vol] 23.5 mmol/L Normal 21.0-32.0 [facility] Comment on above: Performed By: #### L 501.9100, L500.2500, L501.4021, L100.0100 #### [facility] [address] [place], [address] Creatinine [Mass/Vol] 0.66 mg/dL Low 0.70-1.20 [facility] Comment on above: Result Comment: Icte yael present, Results may be affected. Performed By: #### L 501.9100, L500.2500, L501.4021, L100.0100 #### [facility] [address] [place], [address] ECRCL 171.97 ml/min Normal 50-250 [facility] Comment on above: Performed By: #### L 501.9100, L500.2500, L501.4021, L100.0100 #### [facility] [address] [place], [address] GAP 12 Normal 5-15 [facility] Comment on above: Performed By: #### L 501.9100, L500.2500, L501.4021, L100.0100 #### [facility] [address] [place], [address] GFR/1.73 sq M.predicted among non-blacks MDRD (S/P/Bld) [Vol rate/Area] 121 mL/min/{1.73_m2} Normal >60 [facility] Comment on above: Result Comment: mL/m in/1.73m2 CKD-EPI Creatinine Equation (2020) Performed By: #### L 501.9100, L500.2500, L501.4021, L100.0100 #### [facility] [address] [place], [address] Globulin (S) [Mass/Vol] 4.0 g/dL Normal 2.2-4.2 [facility] Comment on above: Performed By: #### L 501.9100, L500.2500, L501.4021, L100.0100 #### [facility] [address] [place], [address] Glucose [Mass/Vol] 96 mg/dL Normal 70-99 [facility] Comment on above: Performed By: #### L 501.9100, L500.2500, L501.4021, L100.0100 #### [facility] [address] [place], [address] Potassium [Moles/Vol] 3.3 mmol/L Normal 3.3-5.1 [facility] Comment on above: Performed By: #### L 501.9100, L500.2500, L501.4021, L100.0100 #### [facility] [address] [place], [address] Sodium [Moles/Vol] 132 mmol/L Low 133-145 [facility] Comment on above: Performed By: #### L 501.9100, L500.2500, L501.4021, L100.0100 #### [facility] [address], [address] T PROT 6.5 g/dL Normal 5.9-8.4 [facility] Comment on above: Performed By: #### L 501.9100, L500.2500, L501.4021, L100.0100 #### [facility] [address], [address] Urea nitrogen [Mass/Vol] 7 mg/dL Normal 4-19 [facility] Comment on above: Performed By: #### L 501.9100, L500.2500, L501.4021, L100.0100 #### [facility] [address], [address] Discharge Instructionon 06-12 Discharge Instruction [facility] Medical Records Department [address] [place] [address] Instructions for Home/Discharge Instructions 06/27/25 1038 MR#: [id number] Acct: [id number] Name: YUDI MCGOWAN Carl Rep #: [id number] : 1985 39 From: J Carlos Chamberlain MD PCP: Care Physician,No Primary Status:ADM IN Discharge Instructions DC O2, CPAP, BIPAP needs Home O2 Discharge instructions: No Dressing / Incision Discharge Activity: Return to Normal Activity Dressing / Incision Call your doctor if you observe: Fever of 101 or Higher, Shortness of breath, Dizziness, Fainting spells, Swelling in the ankles, Chest pain and Increased palpitations (irregular heartbeat) Follow Up Care Test Results: Test results from this visit will be discussed in further detail at your follow-up appointment, if applicable. Discharge Plan Admission Admit Date/Time: 06/24/25 18:48 Attending Provider: J Carlos Chamberlain Primary Care Provider: Care Physician,No Primary Consulting Providers: Sasha Alegre Discharge Orders/Prescriptions Prescriptions: No Action NK Referrals / Follow Up: Care Physician,No Primary [Primary Care Provider, Medical] Disposition Disposition (needs filled in before D/C Order can be placed): Home, Self Care 06/27/25 1039 J Carlos Chamberlain MD CC: Dr. Sasha Alegre DO; No Primary Care Physician Signed Normal [facility] Electrocardiogram reportOrde red By: Reji Lopez on 06-27-2025 EKG study [facility] Cardiovascular Services [address] [place] [address] 12 Lead EKG 06/24/25 1401 MR#: [id number] Acct: [id number] Name: YUDI MCGOWAN Rep #:[id number] : 1985 39 From: Reji Lopez MD Attending Dr: Dr. J Carlos Chamberlain MD Status: ADM IN Ordering Dr: Gerámn Vázquez DO Date: [place] [facility] [place] Sex: M C Admitted: 06/24/25 Test Reason : CP Blood Pressure : */* mmHG Vent. Rate : 133 BPM Atrial Rate : 133 BPM P-R Int : 160 ms QRS Dur : 106 ms QT Int : 272 ms P-R-T Axes : 69 112 -22 degrees QTcB Int : 404 ms Sinus tachycardia Right atrial enlargement Left posterior fascicular block ST & T wave abnormality, consider anterior ischemia Abnormal ECG No previous ECGs available Confirmed by REJI LOPEZ MD ([id number]), acquisitions editor SHARA DAVILA ([id number]) on 56:27:02 AM Referred By: SAMEERA Confirmed By: REJI LOPEZ MD 06/27/25 0627 Date _ Reji Lopez MD CC: Dr. J Carlos Chamberlain MD; Dr. Germán Vázquez DO; No Primary Care Physician ~ Signed [facility] Other Phone: Glomerular filtration rate ( GFR) estimation/1.73 sq m using serum, plasma, or whole bOrdered By: J Carlos Chamberlain on 06-27-2025 GFR/1.73 sq M.predicted among non-blacks MDRD (S/P/Bld) [Vol rate/Area] 121 mL/min/{1.73_m2} >60 [facility] Comment on above: mL/min/1.73m2 CKD-EP I Creatinine Equation (2020) Laboratory - Chemistry and C hemistry - challengeOrdered By: J Carlos Chamberlain on 06-27-2025 AST [Catalytic activity/Vol] 232 U/L High <38 [facility] Potassium measurement (mass/ volume)Ordered By: J Carlos Chamberlain on 06-27-2025 Potassium (Unsp spec) [Mass/Vol] 3.3 mmol/L 3.3-5.1 [facility] Serum creatinine measurement (mass/volume)Ordered By: J Carlos Chamberlain on 06-27-2025 Creatinine [Mass/Vol] 0.66 mg/dL Low 0.70-1.20 [facility] Comment on above: Icterus present, Res ults may be affected. Serum globulin measurementOr dered By: J Carlos Chamberlain on 06-27-2025 Globulin (S) [Mass/Vol] 4.0 g/dL 2.2-4.2 [facility] Serum glucose measurement (m ass/volume)Ordered By: J Carlos Chamberlain on 06-27-2025 Glucose [Mass/Vol] 96 mg/dL 70-99 [facility] Serum or plasma alanine louis otransferase (ALT) measurementOrdered By: J Carlos Chamberlain on 06-27-2025 ALT [Catalytic activity/Vol] 29 U/L <47 [facility] Serum or plasma albumin vijaya urement (mass/volume)Ordered By: J Carlos Chamberlain on 06-27-2025 Albumin [Mass/Vol] 2.5 g/dL Low 3.5-5.0 [facility] Serum or plasma albumin/glob ulin mass ratioOrdered By: J Carlos Chamberlain on 06-27-2025 Albumin/Globulin [Mass ratio] 0.6 {ratio} Low 0.9-2.4 [facility] Serum or plasma alkaline willie sphatase measurementOrdered By: J Carlos Chamberlain on 06-27-2025 ALP [Catalytic activity/Vol] 735 U/L High 40-129 [facility] Serum or plasma calcium vijaya urement (mass/volume)Ordered By: J Carlos Chamberlain on 06-27-2025 Calcium [Mass/Vol] 8.0 mg/dL 7.6-11.0 [facility] Serum or plasma urea nitroge n measurement (mass/volume)Ordered By: J Carlos Chamberlain on 06-27-2025 Urea nitrogen [Mass/Vol] 7 mg/dL 4-19 [facility] Sodium levelOrdered By: Randlel Chamberlain on 06-27-2025 Sodium [Moles/Vol] 132 mmol/L Low 133-145 [facility] Total proteinOrdered By: Mike Chamberlain on 06-27-2025 Protein [Mass/Vol] 6.5 g/dL 5.9-8.4 [facility] Comprehensive Metabolic Prof ilon 06-26-2025 Albumin [Mass/Vol] 2.5 g/dL Low 3.5-5.0 [facility] Comment on above: Performed By: #### L 501.9100, L500.2500, L501.4021, L100.0100 #### [facility] Laboratory [address] [place], [place], [id number] Albumin/Globulin [Mass ratio] 0.6 {ratio} Low 0.9-2.4 [facility] Comment on above: Performed By: #### L 501.9100, L500.2500, L501.4021, L100.0100 #### [facility] [address] [place], [address] ALK PHOS 756 U/L High 40-129 [facility] Comment on above: Performed By: #### L 501.9100, L500.2500, L501.4021, L100.0100 #### [facility] [address] [place], [address] ALT [Catalytic activity/Vol] 31 U/L Normal <=46 [facility] Comment on above: Performed By: #### L 501.9100, L500.2500, L501.4021, L100.0100 #### [facility] [address] [place], [address] AST [Catalytic activity/Vol] 192 U/L High <=37 [facility] Comment on above: Performed By: #### L 501.9100, L500.2500, L501.4021, L100.0100 #### [facility] [address] [place], [address] Bilirubin [Mass/Vol] 8.37 mg/dL High 0.00-1.30 [facility] Comment on above: Performed By: #### L 501.9100, L500.2500, L501.4021, L100.0100 #### [facility] [address] [place], [address] BUN/CRE 12.2 RATIO Normal 10-20 [facility] Comment on above: Performed By: #### L 501.9100, L500.2500, L501.4021, L100.0100 #### [facility] [address] [place], [address] Calcium [Mass/Vol] 7.9 mg/dL Normal 7.6-11.0 [facility] Comment on above: Performed By: #### L 501.9100, L500.2500, L501.4021, L100.0100 #### [facility] [address] [place], [address] Chloride [Moles/Vol] 97 mmol/L Low 98-108 [facility] Comment on above: Performed By: #### L 501.9100, L500.2500, L501.4021, L100.0100 #### [facility] [address] [place], [address] CO2 [Moles/Vol] 22.2 mmol/L Normal 21.0-32.0 [facility] Comment on above: Performed By: #### L 501.9100, L500.2500, L501.4021, L100.0100 #### [facility] [address] [place], [address] Creatinine [Mass/Vol] 0.56 mg/dL Low 0.70-1.20 [facility] Comment on above: Result Comment: Icte yael present, Results may be affected. Performed By: #### L 501.9100, L500.2500, L501.4021, L100.0100 #### [facility] [address] [place], [address] ECRCL 202.38 ml/min Normal 50-250 [facility] Comment on above: Performed By: #### L 501.9100, L500.2500, L501.4021, L100.0100 #### [facility] [address] [place], [address] GAP 12 Normal 5-15 [facility] Comment on above: Performed By: #### L 501.9100, L500.2500, L501.4021, L100.0100 #### [facility] [address] [place], [address] GFR/1.73 sq M.predicted among non-blacks MDRD (S/P/Bld) [Vol rate/Area] 128 mL/min/{1.73_m2} Normal >60 [facility] Comment on above: Result Comment: mL/m in/1.73m2 CKD-EPI Creatinine Equation (2020) Performed By: #### L 501.9100, L500.2500, L501.4021, L100.0100 #### [facility] [address] [place], [address] Globulin (S) [Mass/Vol] 4.0 g/dL Normal 2.2-4.2 [facility] Comment on above: Performed By: #### L 501.9100, L500.2500, L501.4021, L100.0100 #### [facility] [address] [place], [address] Glucose [Mass/Vol] 104 mg/dL High 70-99 [facility] Comment on above: Performed By: #### L 501.9100, L500.2500, L501.4021, L100.0100 #### [facility] [address] [place], [address] Potassium [Moles/Vol] 3.4 mmol/L Normal 3.3-5.1 [facility] Comment on above: Performed By: #### L 501.9100, L500.2500, L501.4021, L100.0100 #### [facility] [address] [place], [address] Sodium [Moles/Vol] 131 mmol/L Low 133-145 [facility] Comment on above: Performed By: #### L 501.9100, L500.2500, L501.4021, L100.0100 #### [facility] [address] [place], [address] T PROT 6.5 g/dL Normal 5.9-8.4 [facility] Comment on above: Performed By: #### L 501.9100, L500.2500, L501.4021, L100.0100 #### [facility] [address] [place], [address] Urea nitrogen [Mass/Vol] 7 mg/dL Normal 4-19 [facility] Comment on above: Performed By: #### L 501.9100, L500.2500, L501.4021, L100.0100 #### [facility] [address] [place], [address] Absolute lymphocyte countOrd ered By: Sasha Alegre on 06-25-2025 Lymphocytes Auto (Unsp spec) [#/Vol] 1.01 10*3/uL 0.83-4.51 [facility] Absolute neutrophil countOrd ered By: Sasha Alegre on 06-25-2025 Neutrophils (Bld) [#/Vol] 8.3 10*3/uL High 2.0-7.7 [facility] Amorphous sediment detection in urine sediment by light microscopyOrdered By: Mike Laird on 06-25-2025 Amorphous sediment LM Ql (Urine sed) 1+ [facility] Amphetamine detection with 1 000 ng/mL as cutoffOrdered By: Mike Laird on 06-25-2025 Amphetamines Screen method >1000 ng/mL Ql (U) Positive <1000 ng/mL [facility] Comment on above: If confirmation test ing is needed, a separate order will be required to send out testing to the reference laboratory. Amphetamines Screen method >1000 ng/mL Ql (U) Negative < 200 ng/mL [facility] Automated lymphocyte count a s percentage of total leukocytesOrdered By: Sasha Alegre on 06-25-2025 Lymphocytes/100 WBC Auto (Unsp spec) 9.9 % Low 19-41 [facility] Basophil percentageOrdered B y: Sasha Alegre on 06-25-2025 Basophils/100 WBC (Bld) 0.6 % 0-1 [facility] Bilirubin Test strip Ql (U)O rdered By: Mike Laird on 06-25-2025 Bilirubin Ql (U) 6 mg/dL High Negative [facility] Comment on above: COLOR OF URINE MAY A FFECT DIPSTICK RESULTS. CBC W/Diff, Automatedon 06-12 Absolute Lymph 1.01 X10 3/uL Normal 0.83-4.51 [facility] Comment on above: Performed By: #### L 501.9100, L500.2500, L501.4021, L100.0100 #### [facility] [address] [place], [address] Absolute Neut 8.3 X10 3/uL High 2.0-7.7 [facility] Comment on above: Performed By: #### L 501.9100, L500.2500, L501.4021, L100.0100 #### [facility] [address] [place], [address] Basophils/100 WBC (Bld) 0.6 % Normal 0-1 [facility] Comment on above: Performed By: #### L 501.9100, L500.2500, L501.4021, L100.0100 #### [facility] [address] [place], [address] Eosinophils/100 WBC (Bld) 0.2 % Normal 0-5 [facility] Comment on above: Performed By: #### L 501.9100, L500.2500, L501.4021, L100.0100 #### [facility] [address] [place], [address] Erythrocyte distribution width (RBC) [Ratio] 14.8 % High 11.6-14.6 [facility] Comment on above: Performed By: #### L 501.9100, L500.2500, L501.4021, L100.0100 #### [facility] [address] [place], [address] Hematocrit (Bld) [Volume fraction] 35.3 % Low 40-54 [facility] Comment on above: Performed By: #### L 501.9100, L500.2500, L501.4021, L100.0100 #### [facility] [address] [place], [address] Hemoglobin (Bld) [Mass/Vol] 11.9 g/dL Low 13.0-16.5 [facility] Comment on above: Performed By: #### L 501.9100, L500.2500, L501.4021, L100.0100 #### [facility] [address] [place], [address] IG% 0.600 Normal 0.0-0.9 [facility] Comment on above: Result Comment: IG% - Immature Granulocytes (promyelocytes, myelocytes and metamyelocytes) > 1% indicates that a LEFT SHIFT is Present. Performed By: #### L 501.9100, L500.2500, L501.4021, L100.0100 #### [facility] [address] [place], [place], [address] Lymphocytes/100 WBC (Bld) 9.9 % Low 19-41 [facility] Comment on above: Performed By: #### L 501.9100, L500.2500, L501.4021, L100.0100 #### [facility] [address] [place], [address] MCH (RBC) [Entitic mass] 35.0 pg High 27.0-32.0 [facility] Comment on above: Performed By: #### L 501.9100, L500.2500, L501.4021, L100.0100 #### [facility] [address] [place], [address] MCHC (RBC) [Mass/Vol] 33.7 g/dL Normal 32-36 [facility] Comment on above: Performed By: #### L 501.9100, L500.2500, L501.4021, L100.0100 #### [facility] [address] [place], [address] MCV (RBC) [Entitic vol] 103.8 fL High 80-94 [facility] Comment on above: Performed By: #### L 501.9100, L500.2500, L501.4021, L100.0100 #### [facility] [address] [place], [address] Monocytes/100 WBC (Bld) 8.3 % Normal 0-10 [facility] Comment on above: Performed By: #### L 501.9100, L500.2500, L501.4021, L100.0100 #### [facility] [address] [place], [address] Neutrophils/100 WBC (Bld) 80.4 % High 47-70 [facility] Comment on above: Performed By: #### L 501.9100, L500.2500, L501.4021, L100.0100 #### [facility] [address] [place], [address] Nucleated RBC (Bld) [#/Vol] 0 10*3/uL Normal 0-5 [facility] Comment on above: Performed By: #### L 501.9100, L500.2500, L501.4021, L100.0100 #### [facility] [address] [place], [address] Platelet mean volume (Bld) [Entitic vol] 11.0 fL Normal 6.2-12.0 [facility] Comment on above: Performed By: #### L 501.9100, L500.2500, L501.4021, L100.0100 #### [facility] [address] [place], [address] Platelets (Bld) [#/Vol] 215 10*3/uL Normal 150-450 [facility] Comment on above: Performed By: #### L 501.9100, L500.2500, L501.4021, L100.0100 #### [facility] [address] [place], [address] RBC (Bld) [#/Vol] 3.40 10*6/uL Low 4.6-6.2 [facility] Comment on above: Performed By: #### L 501.9100, L500.2500, L501.4021, L100.0100 #### [facility] [address] [place], [address] RDW SD 56.5 fl High 35.1-43.9 [facility] Comment on above: Performed By: #### L 501.9100, L500.2500, L501.4021, L100.0100 #### [facility] [address] [place], [address] WBC (Bld) [#/Vol] 10.3 10*3/uL Normal 4.4-11.0 [facility] Comment on above: Performed By: #### L 501.9100, L500.2500, L501.4021, L100.0100 #### [facility] [address] [place], [address] Comprehensive Metabolic Prof ilon 06-25-2025 Albumin [Mass/Vol] 2.5 g/dL Low 3.5-5.0 [facility] Comment on above: Performed By: #### L 501.9100, L500.2500, L501.4021, L100.0100 #### [facility] [address] [place], [address] Albumin/Globulin [Mass ratio] 0.6 {ratio} Low 0.9-2.4 [facility] Comment on above: Performed By: #### L 501.9100, L500.2500, L501.4021, L100.0100 #### [facility] [address] [place], [address] ALK PHOS 766 U/L High 40-129 [facility] Comment on above: Performed By: #### L 501.9100, L500.2500, L501.4021, L100.0100 #### [facility] [address] [place], [address] ALT [Catalytic activity/Vol] 35 U/L Normal <=46 [facility] Comment on above: Performed By: #### L 501.9100, L500.2500, L501.4021, L100.0100 #### [facility] [address] [place], [address] AST [Catalytic activity/Vol] 226 U/L High <=37 [facility] Comment on above: Performed By: #### L 501.9100, L500.2500, L501.4021, L100.0100 #### [facility] [address] [place], [address] Bilirubin [Mass/Vol] 6.97 mg/dL High 0.00-1.30 [facility] Comment on above: Performed By: #### L 501.9100, L500.2500, L501.4021, L100.0100 #### [facility] [address] [place], [address] BUN/CRE 14.7 RATIO Normal 10-20 [facility] Comment on above: Performed By: #### L 501.9100, L500.2500, L501.4021, L100.0100 #### [facility] [address] [place], [address] Calcium [Mass/Vol] 7.7 mg/dL Normal 7.6-11.0 [facility] Comment on above: Performed By: #### L 501.9100, L500.2500, L501.4021, L100.0100 #### [facility] [address] [place], [address] Chloride [Moles/Vol] 99 mmol/L Normal 98-108 [facility] Comment on above: Performed By: #### L 501.9100, L500.2500, L501.4021, L100.0100 #### [facility] [address] [place], [address] CO2 [Moles/Vol] 21.1 mmol/L Normal 21.0-32.0 [facility] Comment on above: Performed By: #### L 501.9100, L500.2500, L501.4021, L100.0100 #### [facility] [address] [place], [address] Creatinine [Mass/Vol] 0.50 mg/dL Low 0.70-1.20 [facility] Comment on above: Result Comment: Icte yael present, Results may be affected. Performed By: #### L 501.9100, L500.2500, L501.4021, L100.0100 #### [facility] [address] [place], [address] ECRCL 223.67 ml/min Normal 50-250 [facility] Comment on above: Performed By: #### L 501.9100, L500.2500, L501.4021, L100.0100 #### [facility] [address] [place], [address] GAP 14 Normal 5-15 [facility] Comment on above: Performed By: #### L 501.9100, L500.2500, L501.4021, L100.0100 #### [facility] [address] [place], [address] GFR/1.73 sq M.predicted among non-blacks MDRD (S/P/Bld) [Vol rate/Area] 132 mL/min/{1.73_m2} Normal >60 [facility] Comment on above: Result Comment: mL/m in/1.73m2 CKD-EPI Creatinine Equation (2020) Performed By: #### L 501.9100, L500.2500, L501.4021, L100.0100 #### [facility] [address] [place], [address] Globulin (S) [Mass/Vol] 3.9 g/dL Normal 2.2-4.2 [facility] Comment on above: Performed By: #### L 501.9100, L500.2500, L501.4021, L100.0100 #### [facility] [address] [place], [address] Glucose [Mass/Vol] 92 mg/dL Normal 70-99 [facility] Comment on above: Performed By: #### L 501.9100, L500.2500, L501.4021, L100.0100 #### [facility] [address] [place], [address] Potassium [Moles/Vol] 3.7 mmol/L Normal 3.3-5.1 [facility] Comment on above: Performed By: #### L 501.9100, L500.2500, L501.4021, L100.0100 #### [facility] [address] [place], [address] Sodium [Moles/Vol] 134 mmol/L Normal 133-145 [facility] Comment on above: Performed By: #### L 501.9100, L500.2500, L501.4021, L100.0100 #### [facility] [address] [place], [address] T PROT 6.5 g/dL Normal 5.9-8.4 [facility] Comment on above: Performed By: #### L 501.9100, L500.2500, L501.4021, L100.0100 #### [facility] [address] [place], [address] Urea nitrogen [Mass/Vol] 7 mg/dL Normal 4-19 [facility] Comment on above: Performed By: #### L 501.9100, L500.2500, L501.4021, L100.0100 #### [facility] [address] [place], [address] Eosinophil percentageOrdered By: Sasha Alegre on 06-25-2025 Eosinophils/100 WBC (Bld) 0.2 % 0-5 [facility] Erythrocyte distribution wid th ratioOrdered By: Sasha Alegre on 06-25-2025 Erythrocyte distribution width (RBC) [Ratio] 14.8 % High 11.6-14.6 [facility] Erythrocyte distribution wid th standard deviationOrdered By: Sasha Alegre on 06-25-2025 Erythrocyte distribution width (RBC) [Ratio] 56.5 fl High 35.1-43.9 [facility] Hematocrit Auto (Bld) [Volum e fraction]Ordered By: Sasha Alegre on 06-25-2025 Hematocrit (Bld) [Volume fraction] 35.3 % Low 40-54 [facility] Hemoglobin measurementOrdere d By: Sasha Alegre on 06-25-2025 Hemoglobin (Bld) [Mass/Vol] 11.9 g/dL Low 13.0-16.5 [facility] Immature granulocytes/100 WB C Auto (Bld)Ordered By: Sasha Alegre on 06-25-2025 Immature granulocytes/100 WBC (Bld) 0.600 % 0.0-0.9 [facility] Comment on above: IG% - Immature Granu locytes (promyelocytes, myelocytes and metamyelocytes) > 1% indicates that a LEFT SHIFT is Present. Ketones Test strip Ql (U)Ord ered By: Mike Laird on 06-25-2025 Ketones Ql (U) Negative Negative [facility] MCV (mean corpuscular volume ) determinationOrdered By: Sasha Alegre on 06-25-2025 MCV (RBC) [Entitic vol] 103.8 fL High 80-94 [facility] Magnesiumon 06-25-2025 Magnesium [Mass/Vol] 1.6 mg/dL Normal 1.5-2.2 [facility] Comment on above: Performed By: #### L 501.9100, L500.2500, L501.4021, L100.0100 #### [facility] [address] [place], [address] Magnesium measurement (mass/ volume)Ordered By: Sasha Alegre on 06-25-2025 Magnesium (Unsp spec) [Mass/Vol] 1.6 mg/dL 1.5-2.2 [facility] Mean corpuscular hemoglobin (MCH) determinationOrdered By: Sasha Alegre on 06-25-2025 MCH (RBC) [Entitic mass] 35.0 pg High 27.0-32.0 [facility] Mean corpuscular hemoglobin concentration (MCHC) determinationOrdered By: Sasha Alegre on 06-25-2025 MCHC (RBC) [Mass/Vol] 33.7 g/dL 32-36 [facility] Mean platelet volume determi nationOrdered By: Sasha Alegre on 06-25-2025 Platelet mean volume (Bld) [Entitic vol] 11.0 fL 6.2-12.0 [facility] Microscopic analysis of urin e for red blood cells (RBC)Ordered By: Mike Laird on 06-25-2025 Microscopic analysis of urine for red blood cells (RBC) 0-5 SEEN /hpf 0-5 [facility] Monocyte percentageOrdered B y: Sasha Alegre on 06-25-2025 Monocytes/100 WBC (Bld) 8.3 % 0-10 [facility] Mucus LM Ql (Urine sed)Order ed By: Mike Laird on 06-25-2025 Mucus Ql (Urine sed) 1+ /hpf [facility] Neutrophil percentageOrdered By: Sasha Alegre on 06-25-2025 Neutrophils/100 WBC (Bld) 80.4 % High 47-70 [facility] Nitrite Test strip Ql (U)Ord ered By: Mike Laird on 06-25-2025 Nitrite Ql (U) Positive High Negative [facility] No Panel InformationOrdered By: Mike Laird on 06-25-2025 Urine Buprenorphine Qualitative Negative < 200 ng/mL [facility] Urine Oxycodone Screen Negative < 100 ng/mL [facility] Nucleated red blood cell per centageOrdered By: Sasha Alegre on 06-25-2025 Nucleated RBC/100 WBC (Bld) [Ratio] 0 % 0-5 [facility] Phosphoruson 06-25-2025 Phosphate [Mass/Vol] 2.0 mg/dL Low 2.7-4.5 [facility] Comment on above: Performed By: #### L 501.9100, L500.2500, L501.4021, L100.0100 #### [facility] [address] [place], [address] Platelet countOrdered By: Clara Alegre on 06-25-2025 Platelets (Bld) [#/Vol] 215 10*3/uL 150-450 [facility] Protein Test strip Ql (U)Ord ered By: Mike Laird on 06-25-2025 Protein Ql (U) 30 mg/dl High Negative [facility] Quantitative urine opiates m easurementOrdered By: Mike Laird on 06-25-2025 Opiates Ql (U) Positive < 300 ng/mL [facility] Comment on above: If confirmation test ing is needed, a separate order will be required to send out testing to the reference laboratory. RBC Auto (Bld) [#/Vol]Ordere d By: Sasha Alegre on 06-25-2025 RBC (Bld) [#/Vol] 3.40 10*6/uL Low 4.6-6.2 [facility] Screening urine fentanyl rossy surementOrdered By: Mike Laird on 06-25-2025 fentaNYL Screen Ql (U) Negative <5 ng/mL [facility] Comment on above: CONFIRMATORY TESTING FOR ALL POSITIVE URINE DRUG SCREENRESULTS WILL ONLY BE SENT OUT UPON PHYSICIAN ORDER. [facility] [employer] Urine Drug Screen methods provide only preliminaryanalytical test results. A more specific alternate chemicalmethod must be used in order to obtain a confirmedanalytical result. Gas chromatography/mass spectrometery(GC/MS) is the preferred confirmatory method. Clinicalconsideration and professional judgement should be appliedto any drug of abuse test result, particularly whenpreliminary positive results are used. Urine TCA testing must be ordered separately. Use test mnemonic: UTCA Squamous epithelial cells de tection in urine sediment by light microscopyOrdered By: Mike Laird on 06-25-2025 Epithelial cells.squamous LM Ql (Urine sed) 0-5 SEEN /hpf 0-5 [facility] TSH DL <= 0.005 mIU/L QnOrde red By: Sasha Alegre on 06-25-2025 TSH Qn 3.940 uIU/mL 0.300-4.200 [facility] Thyroid Stim Hormone (TSH)on 06-25-2025 TSH 3.940 uIU/mL Normal 0.300-4.200 [facility] Comment on above: Performed By: #### L 501.9100, L500.2500, L501.4021, L100.0100 #### [facility] [address] [place], [address] Urinalysis, Completeon 06-25 AMORPHOUS 1+ Normal [facility] Comment on above: Order Comment: COLOR OF URINE MAY AFFECT DIPSTICK RESULTS.CLEAN CATCH Performed By: #### L 501.9100, L500.2500, L501.4021, L100.0100 #### [facility] [address] [place], [address] BACTERIA 2+ /hpf Normal None Seen [facility] Comment on above: Order Comment: COLOR OF URINE MAY AFFECT DIPSTICK RESULTS.CLEAN CATCH Performed By: #### L 501.9100, L500.2500, L501.4021, L100.0100 #### [facility] [address] [place], [address] EPI,SQUAMOUS 0-5 SEEN Normal 0-5 [facility] Comment on above: Order Comment: COLOR OF URINE MAY AFFECT DIPSTICK RESULTS.CLEAN CATCH Performed By: #### L 501.9100, L500.2500, L501.4021, L100.0100 #### [facility] [address] [place], [address] Mucus Ql (Urine sed) 1+ /hpf Normal [facility] Comment on above: Order Comment: COLOR OF URINE MAY AFFECT DIPSTICK RESULTS.CLEAN CATCH Performed By: #### L 501.9100, L500.2500, L501.4021, L100.0100 #### [facility] [address] [place], [address] RBC 0-5 SEEN Normal 0-5 [facility] Comment on above: Order Comment: COLOR OF URINE MAY AFFECT DIPSTICK RESULTS.CLEAN CATCH Performed By: #### L 501.9100, L500.2500, L501.4021, L100.0100 #### [facility] [address] [place], [address] WBC 0 SEEN Normal 0-5 [facility] Comment on above: Order Comment: COLOR OF URINE MAY AFFECT DIPSTICK RESULTS.CLEAN CATCH Performed By: #### L 501.9100, L500.2500, L501.4021, L100.0100 #### [facility] [address] [place], [address] Urine Drug Screen (VISTA)on 06-25-2025 AMPHETAMINES Positive Normal <1000 ng/mL [facility] Comment on above: Result Comment: If c onfirmation testing is needed, a separate order will be required to send out testing to the reference laboratory. Performed By: #### L 501.9100, L500.2500, L501.4021, L100.0100 #### [facility] [address] [place], [address] BARBITIURATES Negative Normal < 200 ng/mL [facility] Comment on above: Performed By: #### L 501.9100, L500.2500, L501.4021, L100.0100 #### [facility] [address] [place], [address] BENZODIAZIPINE Positive Normal < 200 ng/mL [facility] Comment on above: Result Comment: If c onfirmation testing is needed, a separate order will be required to send out testing to the reference laboratory. Performed By: #### L 501.9100, L500.2500, L501.4021, L100.0100 #### [facility] [address] [place], [address] BUP Ur Drug Scr Negative Normal < 200 ng/mL [facility] Comment on above: Performed By: #### L 501.9100, L500.2500, L501.4021, L100.0100 #### [facility] [address] [place], [address] COCAINE Negative Normal < 300 ng/mL [facility] Comment on above: Performed By: #### L 501.9100, L500.2500, L501.4021, L100.0100 #### [facility] [address] [place], [address] Fentanyl Negative Normal <5 ng/mL [facility] Comment on above: Result Comment: CONF IRMATORY TESTING FOR ALL POSITIVE URINE DRUG SCREEN RESULTS WILL ONLY BE SENT OUT UPON PHYSICIAN ORDER. [facility] Urine Drug Screen methods provide only preliminary analytical test results. A more specific alternate chemical method must be used in order to obtain a confirmed analytical result. Gas chromatography/mass spectrometery (GC/MS) is the preferred confirmatory method. Clinical consideration and professional judgement should be applied to any drug of abuse test result, particularly when preliminary positive results are used. Urine TCA testing must be ordered separately. Use test mnemonic: UTCA Performed By: #### L 501.9100, L500.2500, L501.4021, L100.0100 #### [facility] [address] [place], [address] METHADONE Negative Normal < 300 ng/mL [facility] Comment on above: Performed By: #### L 501.9100, L500.2500, L501.4021, L100.0100 #### [facility] [address] [place], [address] OPIATES Positive Normal < 300 ng/mL [facility] Comment on above: Result Comment: If c onfirmation testing is needed, a separate order will be required to send out testing to the reference laboratory. Performed By: #### L 501.9100, L500.2500, L501.4021, L100.0100 #### [facility] [address] [place], [address] OXYCODONE Negative Normal < 100 ng/mL [facility] Comment on above: Performed By: #### L 501.9100, L500.2500, L501.4021, L100.0100 #### [facility] [address] [place], [address] PCP Negative Normal < 25 ng/mL [facility] Comment on above: Performed By: #### L 501.9100, L500.2500, L501.4021, L100.0100 #### [facility] [address] [place], [address] THC Negative Normal < 50 ng/mL [facility] Comment on above: Performed By: #### L 501.9100, L500.2500, L501.4021, L100.0100 #### [facility] [address] [place], [address] Urine benzodiazepine levelOr dered By: Mike Laird on 06-25-2025 Benzodiazepines Ql (U) Positive < 200 ng/mL [facility] Comment on above: If confirmation test ing is needed, a separate order will be required to send out testing to the reference laboratory. Urine clarityOrdered By: Denilson Laird on 06-25-2025 Clarity (U) Clear Clear [facility] Urine cocaine levelOrdered B y: Mike Laird on 06-25-2025 Cocaine Ql (U) Negative < 300 ng/mL [facility] Urine color determinationOrd ered By: Mike Laird on 06-25-2025 Color (U) Eli Yellow [facility] Urine apjqf-1-ewjakckjwnefcf abinol (THC) measurementOrdered By: Mike Pereira on 06-25-2025 Cannabinoids Screen Ql (U) Negative < 50 ng/mL [facility] Urine glucose detectionOrder ed By: Mike Laird on 06-25-2025 Glucose Ql (U) Normal mg/dl Normal [facility] Urine leukocyte esterase det ection by dipstickOrdered By: Mike Laird on 06-25-2025 Leukocyte esterase Test strip Ql (U) 25 /ul High Negative [facility] Urine pHOrdered By: Mike Kinney on 06-25-2025 pH (U) 6.5 [pH] 5.0 - 8.0 [facility] Urine phencyclidine (PCP) de tectionOrdered By: Mike Laird on 06-25-2025 Phencyclidine Ql (U) Negative < 25 ng/mL [facility] Urine sediment bacteria coun t by microscopy (number/high power field)Ordered By: Mike Laird on 06-25-2025 Bacteria LM.HPF (Urine sed) [#/Area] 2 /[HPF] None Seen [facility] Urine specific gravity measu rementOrdered By: Mike Laird on 06-25-2025 Specific gravity (U) [Rel density] 1.015 1.002-1.030 [facility] Urine urobilinogen measureme ntOrdered By: Mike Laird on 06-25-2025 Urobilinogen Ql (U) 12 mg/dl High Normal [facility] White blood cell (WBC) count Ordered By: Sasha Alegre on 06-25-2025 WBC (Bld) [#/Vol] 10.3 10*3/uL 4.4-11.0 [facility] White blood cell countOrdere d By: Mike Laird on 06-25-2025 White blood cell count 0 SEEN /hpf 0-5 [facility] 12 Lead EKGon 06-24-2025 12 Lead EKG [facility] Cardi[facility] Services [address] [address] 12 Lead EKG 06/24/25 1401 MR#: [id number] Acct: [id number] Name: YUDI MCGOWAN Rep #: [id number] : 1985 39 From: Reji Lopez MD Attending Dr: Dr. J Carlos Chamberlain MD Status : ADM IN Ordering Dr: Germán Vázquez DO Date: 06/24/25 Location: MS3 Sex: M C Admitted: 06/24/25 Test Reason : CP Blood Pressure : */* mmHG Vent. Rate : 133 BPM Atrial Rate : 133 BPM P-R Int : 160 ms QRS Dur : 106 ms QT Int : 272 ms P-R-T Axes : 69 112 -22 degrees QTcB Int : 404 ms Sinus tachycardia Right atrial enlargement Left posterior fascicular block ST T wave abnormality, consider anterior ischemia Abnormal ECG No previous ECGs available Confirmed by REJI LOPEZ MD ([id number]), acquisitions editor SHARA DAVILA ([id number]) on 06/27/2025 6:27:02 AM Referred By: SAMEERA Confirmed By: REJI LOPEZ MD 06/27/25 0627 Date Reji Lopez MD CC: Dr. J Carlos Chamberlain MD; Dr. Germán Vázquez DO; No Primary Care Physician Signed Normal [facility] Abdomen/Pelvis W IV Cont ONL Yon 06-24-2025 Abdomen/Pelvis W IV Cont ONLY [facility] Imaging Services [address] [place] [address] [id number] Abdomen/Pelvis W IV Cont ONLY MR#: [id number] Acct: [id number] Name: YUDI MCGOWAN Rep #: [id number] : 1985 M 39 From: Prashant Bowles PCP: Care Physician,No Primary Status: REG ER Study: Abdomen/Pelvis W IV Cont ONLY Date of Exam: Exam# [id number] Ordering Dr: Mike Laird DO PROCEDURE: ABDOMEN/PELVIS W IV CONT ONLY 06/24/2025 REASON FOR EXAM: ABDOMINAL PAIN TECHNIQUE: Procedure Code: [id number] Modality: CT Procedure: ABDOMEN/PELVIS W IV CONT ONLY Coronal and Sagittal reconstruction series were provided. CONTRAST: 100 mL of Isovue 370 One or more dose reduction techniques were used (e.g., Automated exposure control, adjustment of the mA and/or kV according to patient size, use of iterative reconstruction technique. RADIATION DOSE SUMMARY: DLP: 1110 mGycm COMPARISON: None FINDINGS: Limited sections of the lung bases demonstrate no focal pulmonary mass or consolidations. Right base subsegmental atelectasis. The spleen, pancreas, and both adrenal glands demonstrate no acute findings. Hepatic steatosis with nodular liver contour which may reflect cirrhosis. Hepatomegaly to 20.8 cm. Gallbladder wall is thickened which may be reactive to adjacent inflamed hepatic tissue. Small hiatal hernia; otherwise stomach is unremarkable. Scattered mild thickening of the small bowel wall which may reflect enteritis. The appendix is not clearly identified, although there are no secondary signs of appendicitis. No colonic obstruction. Moderate ascites. No free fluid. 1.1 x 1.0 cm cyst within the left kidney. The right kidney is unremarkable. No hydronephrosis. The urinary bladder is partially distended. The pelvic structures are intact. There is no solid pelvic mass. No significant lymphadenopathy. The aorta and IVC demonstrate no acute findings. Mild atherosclerosis of the abdominal vasculature. Visualized osseous structures demonstrate no acute abnormality. CT/Abdomen/Pelvis W IV Cont ONLY IMPRESSION: Extensive hepatic steatosis and question cirrhosis. Hepatomegaly. Moderate ascites. Acute hepatitis is not entirely excluded. Gallbladder wall is thickened which may be reactive to adjacent inflamed hepatic tissue. Scattered mild thickening of the small bowel wall which may reflect enteritis. Small hiatal hernia. Reading Location: [id number] CC: Dr. Mike Laird, DO; No Primary Care Physician Sales Data Analyst: Signed Normal [facility] Activated partial thrombopla stin time (aPTT) in platelet poor plasma by coagulation aOrdered By: Mike Laird on 06-24-2025 aPTT Coag (PPP) [Time] 32.8 s 24.1-36.2 [facility] Alcohol, Blood (Medical)-Ser umon 06-24-2025 SERUM ETOH 319.0 mg/dL Invalid Interpretation Code <=10.0 [facility] Comment on above: Result Comment: Crit ical Result(s) Called SOFÍA at: 1537 by: FLASH??Results read back by same. This test is for medical purposes only. The legal definition of intoxication varies according to local law. Performed By: #### L 501.9100, L500.2500, L501.4021, L100.0100 #### [facility] [address] [place], [address] Basic Metabolic Profile (BMP )on 06-24-2025 BUN/CRE 12.6 RATIO Normal - [facility] Comment on above: Performed By: #### L 501.9100, L500.2500, L501.4021, L100.0100 #### [facility] [address] [place], [address] Calcium [Mass/Vol] 7.7 mg/dL Normal 7.6-11.0 [facility] Comment on above: Performed By: #### L 501.9100, L500.2500, L501.4021, L100.0100 #### [facility] [address] [place], [address] Chloride [Moles/Vol] 97 mmol/L Low 98-108 [facility] Comment on above: Performed By: #### L 501.9100, L500.2500, L501.4021, L100.0100 #### [facility] [address] [place], [address] CO2 [Moles/Vol] 21.4 mmol/L Normal 21.0-32.0 [facility] Comment on above: Performed By: #### L 501.9100, L500.2500, L501.4021, L100.0100 #### [facility] [address] [place], [address] Creatinine [Mass/Vol] 0.52 mg/dL Low 0.70-1.20 [facility] Comment on above: Result Comment: Icte yael present, Results may be affected. Performed By: #### L 501.9100, L500.2500, L501.4021, L100.0100 #### [facility] [address] [place], [address] ECRCL 228.31 ml/min Normal 50-250 [facility] Comment on above: Performed By: #### L 501.9100, L500.2500, L501.4021, L100.0100 #### [facility] [address] [place], [address] GAP 16 High 5-15 [facility] Comment on above: Performed By: #### L 501.9100, L500.2500, L501.4021, L100.0100 #### [facility] [address] [place], [address] GFR/1.73 sq M.predicted among non-blacks MDRD (S/P/Bld) [Vol rate/Area] 131 mL/min/{1.73_m2} Normal >60 [facility] Comment on above: Result Comment: mL/m in/1.73m2 CKD-EPI Creatinine Equation (2020) Performed By: #### L 501.9100, L500.2500, L501.4021, L100.0100 #### [facility] [address] [place], [address] Glucose [Mass/Vol] 110 mg/dL High 70-99 [facility] Comment on above: Performed By: #### L 501.9100, L500.2500, L501.4021, L100.0100 #### [facility] [address] [place], [address] Potassium [Moles/Vol] 3.4 mmol/L Normal 3.3-5.1 [facility] Comment on above: Performed By: #### L 501.9100, L500.2500, L501.4021, L100.0100 #### [facility] [address] [place], [address] Sodium [Moles/Vol] 134 mmol/L Normal 133-145 [facility] Comment on above: Performed By: #### L 501.9100, L500.2500, L501.4021, L100.0100 #### [facility] [address] [place], [address] Urea nitrogen [Mass/Vol] 7 mg/dL Normal 4-19 [facility] Comment on above: Performed By: #### L 501.9100, L500.2500, L501.4021, L100.0100 #### [facility] [address] [place], [address] Bilirubin directOrdered By: Mike Laird on 06-24-2025 Bilirubin.direct [Mass/Vol] 5.04 mg/dL High 0.00-0.30 [facility] CBC W/Diff, Automatedon 10- Absolute Lymph 1.75 X10 3/uL Normal 0.83-4.51 [facility] Comment on above: Performed By: #### L 501.9100, L500.2500, L501.4021, L100.0100 #### [facility] [address] [place], [address] Absolute Neut 10.9 X10 3/uL High 2.0-7.7 [facility] Comment on above: Performed By: #### L 501.9100, L500.2500, L501.4021, L100.0100 #### [facility] [address] [place], [address] Basophils/100 WBC (Bld) 0.6 % Normal 0-1 [facility] Comment on above: Performed By: #### L 501.9100, L500.2500, L501.4021, L100.0100 #### [facility] [address] [place], [address] Eosinophils/100 WBC (Bld) 0.3 % Normal 0-5 [facility] Comment on above: Performed By: #### L 501.9100, L500.2500, L501.4021, L100.0100 #### [facility] [address] [place], [address] Erythrocyte distribution width (RBC) [Ratio] 14.7 % High 11.6-14.6 [facility] Comment on above: Performed By: #### L 501.9100, L500.2500, L501.4021, L100.0100 #### [facility] [address] [place], [address] Hematocrit (Bld) [Volume fraction] 38.0 % Low 40-54 [facility] Comment on above: Performed By: #### L 501.9100, L500.2500, L501.4021, L100.0100 #### [facility] [address] [place], [address] Hemoglobin (Bld) [Mass/Vol] 13.2 g/dL Normal 13.0-16.5 [facility] Comment on above: Performed By: #### L 501.9100, L500.2500, L501.4021, L100.0100 #### [facility] [address] [place], [address] IG% 0.900 Normal 0.0-0.9 [facility] Comment on above: Result Comment: IG% - Immature Granulocytes (promyelocytes, myelocytes and metamyelocytes) > 1% indicates that a LEFT SHIFT is Present. Performed By: #### L 501.9100, L500.2500, L501.4021, L100.0100 #### [facility] [address] [place], [address] Lymphocytes/100 WBC (Bld) 12.7 % Low 19-41 [facility] Comment on above: Performed By: #### L 501.9100, L500.2500, L501.4021, L100.0100 #### [facility] [address] [place], [address] MCH (RBC) [Entitic mass] 35.9 pg High 27.0-32.0 [facility] Comment on above: Performed By: #### L 501.9100, L500.2500, L501.4021, L100.0100 #### [facility] [address] [place], [address] MCHC (RBC) [Mass/Vol] 34.7 g/dL Normal 32-36 [facility] Comment on above: Performed By: #### L 501.9100, L500.2500, L501.4021, L100.0100 #### [facility] [address] [place], [address] MCV (RBC) [Entitic vol] 103.3 fL High 80-94 [facility] Comment on above: Performed By: #### L 501.9100, L500.2500, L501.4021, L100.0100 #### [facility] [address] [place], [address] Monocytes/100 WBC (Bld) 6.4 % Normal 0-10 [facility] Comment on above: Performed By: #### L 501.9100, L500.2500, L501.4021, L100.0100 #### [facility] [address] [place], [address] Neutrophils/100 WBC (Bld) 79.1 % High 47-70 [facility] Comment on above: Performed By: #### L 501.9100, L500.2500, L501.4021, L100.0100 #### [facility] [address] [place], [address] Nucleated RBC (Bld) [#/Vol] 0 10*3/uL Normal 0-5 [facility] Comment on above: Performed By: #### L 501.9100, L500.2500, L501.4021, L100.0100 #### [facility] [address] [place], [address] Platelet mean volume (Bld) [Entitic vol] 11.0 fL Normal 6.2-12.0 [facility] Comment on above: Performed By: #### L 501.9100, L500.2500, L501.4021, L100.0100 #### [facility] [address] [place], [address] Platelets (Bld) [#/Vol] 302 10*3/uL Normal 150-450 [facility] Comment on above: Performed By: #### L 501.9100, L500.2500, L501.4021, L100.0100 #### [facility] [address] [place], [address] RBC (Bld) [#/Vol] 3.68 10*6/uL Low 4.6-6.2 [facility] Comment on above: Performed By: #### L 501.9100, L500.2500, L501.4021, L100.0100 #### [facility] [address] [place], [address] RDW SD 55.8 fl High 35.1-43.9 [facility] Comment on above: Performed By: #### L 501.9100, L500.2500, L501.4021, L100.0100 #### [facility] [address] [place], [address] WBC (Bld) [#/Vol] 13.8 10*3/uL High 4.4-11.0 [facility] Comment on above: Performed By: #### L 501.9100, L500.2500, L501.4021, L100.0100 #### [facility] [address] [place], [address] Chest PA and Lateralon 06-24 Chest PA and Lateral [facility] Imaging Services [address] [address] Chest PA and Lateral MR#: [id number] Acct: [id number] Name: YUDI MCGOWAN Rep #: [id number] : 1985 M 39 From: Prashant Bowles PCP: Status: PRE ER Study: Chest PA and Lateral Date of Exam: 06/24/25 Exam# [id number] Ordering Dr: Mike Laird DO PROCEDURE: CHEST PA AND LATERAL 06/24/2025 REASON FOR EXAM: CHEST PAIN TECHNIQUE: Procedure Code: RADCXR Modality: DX Procedure: CHEST PA AND LATERAL COMPARISON: None FINDINGS: No focal consolidation. No pleural effusion or pneumothorax. Cardiac silhouette is within normal limits. No acute fractures. RAD/Chest PA and Lateral IMPRESSION: No focal consolidation. Reading Location: [id number] CC: Dr. Mike Laird DO Sales Data Analyst: Signed Normal [facility] Emergency Department Summary on 06-24-2025 Emergency Department Summary [facility] Medical Records Department [address] [place] [address] Emergency Department Summary 06/24/25 MR#: [id number] Acct: [id number] Name: YUDI MCGOWAN Rep #: [id number] : 1985 39 From: Mike Laird DO PCP: Care Physician,No Primary Status:REG ER Location: ED ADDENDUM by Dr. Glenroy Whalen DO on 06/24/25 at 1844 Care of the patient was turned over to me pending gallbladder ultrasound. This was obtained. There is no evidence of acute cholecystitis. There is no evidence of choledocholithiasis. Case was discussed with the hospitalist. She will admit the patient to her service. Patient understood and was agreeable with the plan. All questions were answered. 06/24/25 4624 Cosigner Signature (if applicable): cc: No Primary Care Physician * Signed HPI History of Present Illness Chief Complaint: Substance Abuse Narrative Narrative: Chief complaint and HPI: 39-year-old male with past medical history of alcohol abuse presents for evaluation for detox as well as multiple other complaints. Patient states he drinks about a half a gallon of liquor a day, vodka. Last drink was before EMS arrival. Patient states for the past several days he has been having episodic chest pain, shortness of breath, epigastric abdominal pain. Friend in the room states that his eyes have been yellow for the past several days. Patient denies any history of cirrhosis. He feels that his abdomen is bloated. He denies any fever, chills, nausea, vomiting, dysuria. Review of systems: See HPI Medications: As listed on the chart Allergies: As listed on the chart PFSH: Per chart Vital signs: As listed on the chart. Reviewed. Physical exam: Gen: Alert and oriented but intoxicated, anxious Head: Normocephalic, atraumatic Eyes: Jaundice, PERRL, EOMI ENT: Dry mucous membranes Neck: Trachea midline CV: Tachycardic, regular rhythm, no murmurs Resp: Lungs CTA BL, no w/r/c GI: Abd soft, mildly distended, tender to palpation in the epigastrium and right upper quadrant, no r/r Musc: Full ROM, no deformity Skin: Warm, dry, jaundice Neuro: Alert, oriented, grossly intact, sensation intact Psych: Cooperative, anxious, intoxicated PFS PFS Medical History (Updated 06/24/25 @ 14:32 by Guera Elizabeth) Substance abuse Alcohol abuse Irregular heart beat Home Medications ???Medication ???Instructions ???Recorded ???Last Taken ???Type NK 06/24/25 Unknown History Allergy/AdvReac Type Severity Reaction Status Date / Time No Known Allergies Allergy Verified 06/24/25 13:50 Social History Smoking Status: Former smoker EXAM Physical Exam Const Vital Signs: 06/24/25 13:46 06/24/25 14:46 06/24/25 14:55 Temperature 98.3 F Temperature Source Oral Pulse Rate 90 Respiratory Rate 16 Blood Pressure 182/149 H 136/110 H Blood Pressure Mean 160 118 Pulse Ox 98 Oxygen Delivery Method Room Air Room Air 06/24/25 15:00 06/24/25 16:00 Temperature Temperature Source Pulse Rate 105 H 131 H Respiratory Rate 18 Blood Pressure 154/112 H 154/112 H Blood Pressure Mean 126 126 Pulse Ox 91 Oxygen Delivery Method MDM MDM MDM Narrative Medical decision making narrative: 39-year-old male with past medical history of alcohol abuse presents for evaluation for detox as well as multiple other complaints. Patient states he drinks about a half a gallon of liquor a day, vodka. Last drink was before EMS arrival. Patient states for the past several days he has been having episodic chest pain, shortness of breath, epigastric abdominal pain. On presentation, patient is intoxicated and anxious. He is tachycardic and jaundice. Differential diagnosis includes but is not limited to alcohol intoxication, cirrhosis, pancreatitis, electrolyte abnormality, dehydration CHF, ACS. NS bolus, Ativan ordered for symptoms. Laboratory workup ordered including CT abdomen and pelvis. CBC with mild leukocytosis of 13.8. No anemia. Platelets unremarkable. BMP shows dehydration with mild anion gap of 16. Likely secondary to alcoholic ketosis. No GABBY. Alcohol level 319. CT abdomen pelvis shows extensive hepatic steatosis and question cirrhosis. Hepatomegaly. Moderate ascites. Acute hepatitis is not entirely excluded. Gallbladder wall is thickened which may be reactive to adjacent inflamed hepatic tissue. Scattered mild thickening of the small bowel wall which may reflect enteritis. Small hiatal hernia. INR normal. Lipase elevated at 117. No pancreatitis seen on CT abdomen pelvis. CMP shows hyperbilirubinemia with a bilirubin of 6.46. Direct bilirubin of 5.04. AST transaminitis of 251. Transaminitis is consistent with alcoholic transaminitis. Given elevation in direct bilirubin, ultrasound of the gallbladder or (more content not included)... Normal [facility] Gallbladderon 06-24-2025 Gallbladder [facility] Imaging Services [address] [place] [address] Gallbladder MR#: [id number] Acct: [id number] Name: YUDI MCGOWAN Rep #: [id number] : 1985 M 39 From: Prashant Bowles PCP: Care Physician,No Primary Status: REG ER Study: Gallbladder Date of Exam: 06/24/25 Exam# [id number] Ordering Dr: Mike Laird DO PROCEDURE: GALLBLADDER 06/24/2025 REASON FOR EXAM: HYPERBILIRUBINEMIA COMPARISON: Same day CT on 06/24/2025 FINDINGS: GALLBLADDER: No gallstones. Gallbladder sludge noted. Mild thickening of the gallbladder to 3.6 mm. No pericholecystic fluid. Negative Draper sign. Question nodular liver contour. COMMON BILE DUCT: Measures 10.2 Mm. No intrahepatic biliary dilatation. LIVER: Enlarged to 19.9 cm. Increased echogenicity. No definite hepatic mass. RIGHT KIDNEY: Normal in size and echogenicity. No mass. No urinary stones. No hydronephrosis. Pancreas: Not well visualized. Ascites noted. US/Gallbladder IMPRESSION: Hepatomegaly and hepatic steatosis. Question nodular liver contour which may reflect cirrhosis. Nonspecific dilation of the CBD. Ascites noted. No acute cholecystitis. Reading Location: [facility] CC: Dr. Mike Laird DO; No Primary Care Physician Sales Data Analyst: Signed Normal [facility] H AND P Exam - Hospitaliston 06-24-2025 H&P Exam - Hospitalist [facility] Medical Records Department [address] [place] [id number] H P Exam - Hospitalist 06/24/25 1854 MR#: [id number] Acct: [id number] Name: YUDI MCGOWAN Rep #: [id number] : 1985 39 From: Sasha Alegre DO PCP: Care Physician,No Primary Status:ADM [place] [facility] [place]-5 HPI - General General Date of Admission: 06/24/25 Date of Service: 06/24/25 Chief Complaint: Alcohol detox HPI Narrative YUDI MCGOWAN, is a 39 M who presented to the emergency department at [facility] 06/24/2025 requesting detox from alcohol. Patient states he has been drinking heavily for the last 2 years. He states he drink intermittently before and he has had substance abuse problems previously with cocaine and went through a stent and inpatient rehab for that forced by his parents to be able to come back to work. He stated within the last 2 years he has been heavily drinking at least a half a gallon of vodka every 2 days. His last drink was just prior to presentation. He has never been through alcohol detox previously. He has never had seizure. He is currently unemployed. Vital signs on presentation showed temperature 98, heart rate 105, blood pressure 136/110, respiratory was 18 and pulse ox was 91 to 96% on room air. CBC shows a leukocytosis with a white count of 13.8 and a left shift with a 79.1% neutrophilia. Coags show a mildly elevated PTT at 15.5. Chemistry panel shows normal renal function electrolytes however he has markedly abnormal liver functions with a total bilirubin of 6.46, direct bilirubin of 5.04 and an AST of 251. His alk phos is 778. Troponin is negative x 3. proBNP is 36 and lipase was 117. Ethyl alcohol level was 319. EKG shows sinus tachycardia. Chest x-ray shows no focal consolidation. CT of the abdomen pelvis showed extensive hepatosteatosis with questionable cirrhosis, hepatomegaly, moderate ascites, thickening of the gallbladder wall, mild thickening of the small bowel and small hiatal hernia. Gallbladder ultrasound showed nonspecific dilation of the common bile duct with ascites and no acute cholecystitis, liver contour was suggestive of cirrhosis. Patient will be admitted to general medical floor for what is to be expected greater than 2 midnights for alcohol detox. [facility] Medical History Anxiety Depression Hypertension GERD (gastroesophageal reflux disease) Substance abuse Alcohol abuse Irregular heart beat Home Medications ???Medication ???Instructions ???Recorded ???Last Taken ???Type NK 06/24/25 Unknown History Allergy/AdvReac Type Severity Reaction Status Date / Time No Known Allergies Allergy Verified 06/24/25 13:50 no significant family history no surgical history Social History (Updated 06/24/25 @ 21:[address] Sasha Alegre DO) Smoking Status: Former smoker alcohol intake: current alcohol intake frequency: other Alcohol type: hard liquor details: Patient drinks 1 gallon of vodka every 2 days substance use type: former substance user Date of last use: Cocaine ROS Constitutional Constitutional: Denies anorexia, change in weight, chills, fatigue, fever(s), malaise, night sweats, weakness or other Eyes Eyes: Denies blurry vision, change in eye color, change in vision, discharge from eye(s), double vision, erythema, eye pain, loss of vision or other ENT HEENT: Denies abnormal hearing, dysphagia, ear pain, epistaxis, headache(s), hearing loss, nasal congestion, nasal discharge, post nasal drip, sinus pressure, sore throat or other Cardiovascular Cardiovascular: Denies chest pain, claudication, dyspnea on exertion, edema, lightheadedness, orthopnea, palpitations, paroxysmal nocturnal dyspnea, rapid heart rate, syncope or other Respiratory/Chest Respiratory/Chest: Denies cough, dyspnea, excessive phlegm production, hemoptysis, productive cough, shortness of breath at rest, shortness of breath with exertion, wheezing or other Gastrointestinal Gastrointestinal: Reports abdominal pain and nausea; Denies coffee ground emesis, constipation, diarrhea, dyspepsia, hematemesis, hematochezia, loose stools, melena, vomiting or other Genitourinary Genitourinary: Denies burning urination, difficulty urinating, dysuria, hematuria, nocturia, urinary frequency, urinary hesitancy, urinary incontinence, urinary urgency or other Musculoskeletal Musculoskeletal: Denies arthralgias, back pain, joint pain, joint stiffness, joint swelling, myalgias, neck pain or other Neurologic Neurologic: Denies abnormal gait, abnormal speech, confusion, disequilibrium, dizziness, focal weakness, headache(s), numbness, paresthesias, seizure-like activity, seizures, syncope, tingling, tremor(s) or other Psychiatric Psychiatric: Denies anxiety, depression, homicidal ideation, suicidal ideation or other (more content not included)... Normal [facility] International normalized rat io (INR) calculationOrdered By: Mike Laird on 06-24-2025 INR Coag (Bld) [Relative time] 1.2 {INR} [facility] L501.4021on 06-24-2025 Trop T High Sen < 6 Normal <=22 [facility] Comment on above: Performed By: #### L 501.9100, L500.2500, L501.4021, L100.0100 #### [facility] [address] [place], [address] Lipaseon 06-24-2025 Lipase [Catalytic activity/Vol] 117 U/L High 13-75 [facility] Comment on above: Result Comment: Valerie goodrich note: LIPASE revised reference range effective 22. New Lipase methodology. Expected to produce lower values than the previous assay method. NEW Reference Range: 13 - 75 U/L Performed By: #### L 501.2450, L300.4310, L505.5000, L500.3400, L300.3900, L503.7505 #### [facility] [address] [place], [address] Lipase measurementOrdered By : Mike Laird on 06-24-2025 Lipase [Catalytic activity/Vol] 117 U/L High 13-75 [facility] Comment on above: Please note:LIPASE r evised reference range effective 22. New Lipase methodology. Expected to produce lower values than the previous assay method. NEW Reference Range: 13 - 75 U/L Liver Profileon 06-24-2025 Albumin [Mass/Vol] 2.5 g/dL Low 3.5-5.0 [facility] Comment on above: Performed By: #### L 501.2450, L300.4310, L505.5000, L500.3400, L300.3900, L503.7505 #### [facility] [address] [place], [address] ALK PHOS 778 U/L High 40-129 [facility] Comment on above: Performed By: #### L 501.2450, L300.4310, L505.5000, L500.3400, L300.3900, L503.7505 #### [facility] [address] [place], [address] ALT [Catalytic activity/Vol] 36 U/L Normal <=46 [facility] Comment on above: Performed By: #### L 501.2450, L300.4310, L505.5000, L500.3400, L300.3900, L503.7505 #### [facility] [address] [place] [place], [address] AST [Catalytic activity/Vol] 251 U/L High <=37 [facility] Comment on above: Performed By: #### L 501.2450, L300.4310, L505.5000, L500.3400, L300.3900, L503.7505 #### [facility] [address] [place] [place], [address] Bilirubin [Mass/Vol] 6.46 mg/dL High 0.00-1.30 [facility] Comment on above: Performed By: #### L 501.2450, L300.4310, L505.5000, L500.3400, L300.3900, L503.7505 #### [facility] [address] [place] [place], [address] Bilirubin.direct [Mass/Vol] 5.04 mg/dL High 0.00-0.30 [facility] Comment on above: Performed By: #### L 501.2450, L300.4310, L505.5000, L500.3400, L300.3900, L503.7505 #### [facility] [address] [place], [address] Globulin (S) [Mass/Vol] 4.0 g/dL Normal 2.2-4.2 [facility] Comment on above: Performed By: #### L 501.2450, L300.4310, L505.5000, L500.3400, L300.3900, L503.7505 #### [facility] [address] [place], [address] T PROT 6.5 g/dL Normal 5.9-8.4 [facility] Comment on above: Performed By: #### L 501.2450, L300.4310, L505.5000, L500.3400, L300.3900, L503.7505 #### [facility] [address] [place], [place], [id number] Natriuretic peptide.B prohor jamir N-Terminal [Mass/volume] in Serum or PlasmaOrdered By: Mike Laird on 06-24-2025 Natriuretic peptide.B prohormone N-Terminal [Mass/Vol] < 36 pg/mL <450 [facility] Comment on above: Heart Failure Unlike ly: < 300 pg/mLHeart Failure Likely< 50 Years: > 450 pg/mL50-75 Years: > 900 pg/mL>75 Years: > 1800 pg/mL Partial Thromboplast Timeon 06-24-2025 aPTT Coag (Bld) [Time] 32.8 s Normal 24.1-36.2 [facility] Comment on above: Performed By: #### L 501.2450, L300.4310, L505.5000, L500.3400, L300.3900, L503.7505 #### [facility] [address] [place], [place], [id number] Pro- Brain NATRIURETIC PEPTI Len 06-24-2025 proBNP < 36 Normal <=450 [facility] Comment on above: Result Comment: Hear t Failure Unlikely: < 300 pg/mL Heart Failure Likely < 50 Years: > 450 pg/mL 50-75 Years: > 900 pg/mL >75 Years: > 1800 pg/mL Performed By: #### L 501.2450, L300.4310, L505.5000, L500.3400, L300.3900, L503.7505 #### [facility] [address] [place] [place], [address] Prothrombin Time w/INRon INR Coag (PPP) [Relative time] 1.2 {INR} Normal [facility] Comment on above: Performed By: #### L 501.2450, L300.4310, L505.5000, L500.3400, L300.3900, L503.7505 #### [facility] [address] [place] [place], [address] PT Coag (PPP) [Time] 15.5 s High 11.7-14.9 [facility] Comment on above: Performed By: #### L 501.2450, L300.4310, L505.5000, L500.3400, L300.3900, L503.7505 #### [facility] [address] [place], [address] Prothrombin timeOrdered By: Mike Laird on 06-24-2025 PT Coag (PPP) [Time] 15.5 s High 11.7-14.9 [facility] Serum or plasma ethanol vijaya urement (mass/volume)Ordered By: Germán Vázquez on 06-24-2025 Ethanol [Mass/Vol] 319.0 mg/dL Critically high <10.1 [facility] Comment on above: Critical Result(s) C eld JEREMIECORNELIAChelsie at: 1537 by: FLASH Results read back by same.This test is for medical purposes only. The legal definition of intoxication varies according to local law. Troponin T HS 2 HRon 025 Trop T High Sen 7 ng/L Normal <=22 [facility] Comment on above: Performed By: #### L 501.9100, L500.2500, L501.4021, L100.0100 #### [facility] [address] [place], [place], [id number] [phone] Troponin T HS 4 HRon 025 Trop T High Sen 8 ng/L Normal <=22 [facility] Comment on above: Performed By: #### L 501.9100, L500.2500, L501.4021, L100.0100 #### [facility] [address] [place], [address] Troponin T.cardiac [Mass/vol ume] in Serum or Plasma by High sensitivity methodOrdered By: Germán Vázquez on 06-24-2025 Troponin T.cardiac High sensitivity method [Mass/Vol] 8 ng/L <22 [facility] Troponin T.cardiac High sensitivity method [Mass/Vol] 7 ng/L <22 [facility] Troponin T.cardiac High sensitivity method [Mass/Vol] < 6 ng/L <22 [facility] Vital Signs Date Time Vital Sign Value Performing Clinician Facility 07-13-2025 21:20-0400 Diastolic Blood Pressure Non-Invasive 94 mm[Hg] MARLEY RICO MD [facility] 07-13-2025 21:20-0400 Heart rate 129 /min MARLEY RICO MD [facility] 07-13-2025 21:20-0400 Reason For Taking VItal Signs MARLEY RICO MD [facility] 07-13-2025 21:20-0400 Respiratory rate 22 /min MARLEY RICO MD [facility] 07-13-2025 21:20-0400 Systolic Blood Pressure Non-Invasive 156 mm[Hg] MARLEY RICO MD [facility] 07-13-2025 20:18-0400 Body temperature 98.24 [degF] MARLEY RICO MD [facility] 07-13-2025 20:18-0400 Body weight 106.3 kg MARLEY RICO MD [facility] 07-13-2025 20:18-0400 Diastolic Blood Pressure Non-Invasive 97 mm[Hg] MARLEY RICO MD [facility] 07-13-2025 20:18-0400 Heart rate 127 /min MARLEY RICO MD [facility] 07-13-2025 20:18-0400 Respiratory rate 28 /min MARLEY RICO MD [facility] 07-13-2025 20:18-0400 Systolic Blood Pressure Non-Invasive 152 mm[Hg] MARLEY RICO MD [facility] 06-27-2025 08:23-0400 Body temperature 97.2 [degF] Dr. Mike Laird DO Work Phone: [facility] 06-27-2025 08:23-0400 Diastolic blood pressure 90 mm[Hg] Dr. Mike Laird DO Work Phone: [phone] [place] [address] 06-27-2025 08:23-0400 Heart rate 124 /min Dr. Mike Laird DO Work Phone: [phone] [place] [address] 06-27-2025 08:23-0400 Respiratory rate 18 /min Dr. Mike Laird DO Work Phone: [phone] [place] [address] 06-27-2025 08:23-0400 SaO2% (BldA) [Mass fraction] 98 % Dr. Mike Laird DO Work Phone: [facility] 06-27-2025 08:23-0400 Systolic blood pressure 132 mm[Hg] Dr. Mike Laird DO Work Phone: [facility] 06-27-2025 06:00-0400 Body mass index (BMI) [Ratio] 29.9 kg/m2 Dr. Mike Laird DO Work Phone: [phone] [place] [address] 06-27-2025 06:00-0400 Body weight 94.[address] Mike Laird DO Work Phone: [facility] 06-25-2025 15:49-0400 Body height 177.[address] Mike Laird DO Work Phone: [facility] Encounters Encounter Date Encounter Type Care Provider Facility Start: 07-13-2025 End: 07-13-2025 Emergency department patient visit MARLEY RICO MD [facility] Start: 06-27-2025 Non-patient / Non-visit Dr. Enma Chamberlain MD [facility] Work Phone: Start: 06-26-2025 Non-patient / Non-visit Dr. Enma Chamberlain MD [facility] Work Phone: Start: 06-25-2025 Non-patient / Non-visit Dr. Enma Chamberlain MD -[facility] Work Phone: Start: 06-24-2025 Non-patient / Non-visit Dr. Sasha Alegre DO -[facility] Work Phone: Start: 06-24-2025 ambulatory Sasha Alegre Facility:[facility] Start: 06-24-2025 End: 06-27-2025 Evaluation and management of inpatient No Primary Care Physician Facility:[facility] Start: 01-05-2019 End: 01-05-2019 Emergency department patient visit Marley Rico Facility:[facility] Procedures Date Procedure Procedure Detail Performing Clinician Start: 06-27-[address] Mike Laird DO Work Phone: Start: 06-25-2025 Serum inorganic phos phate measurement Dr. Mike Laird DO Work Phone: Start: 06-25-2025 Methadone measuremen t, urine Dr. Mike Laird DO Work Phone: Start: 06-25-2025 Urnls dip stick/tabl et reagent auto microscopy Dr. Mike Laird DO Work Phone: Start: 06-24-2025 US scan of gallbladder Dr. Mike Laird DO Work Phone: Start: 06-24-2025 Ct abdomen & pelvis w/contrast material Dr. Mike Laird DO Work Phone: Start: 06-24-2025 Radiologic exam ches t [address] Mike Laird DO Work Phone: Plan of Treatment Date Care Activity Detail Author Start: 06-27-2025 Patient discharge [facility] Start: 06-24-2025 Assessment of risk o f venous thromboembolism [facility] Start: 06-24-2025 Incentive spirometry [facility] Start: 06-24-2025 Insertion of cathete r into peripheral vein [facility] Start: 06-24-2025 Measuring intake and output [facility] Start: 06-24-2025 Oxygen therapy [facility] Start: 06-24-2025 Providing care accor ding to standard [facility] Start: 06-24-2025 Referral to service [facility] Start: 06-24-2025 [facility] Start: 06-24-2025 Following clinical p athway protocol [facility] Start: 06-24-2025 Admission procedure [facility] Start: 06-24-2025 Hospital admission, emergency, from emergency room, medical nature [facility] Start: 06-24-2025 [facility] Start: 06-24-2025 Patient referral to dietitian [facility] Immunizations Immunization Date Immunization Notes Care Provider Lina cannon 12-17-1987 haemophilus influenz ae type b vaccine, PRP-T conjugate MARLEY RICO MD [facility] [place] Payers Date Payer Category Payer Medicaid [id number] 2025 Self-pay 2025 Unknown [id number] 2019 Private Health Insurance [id number] 2019 Unknown [id number] 1984 Unknown [id number] 2.16.8 [id number] 1984 Unknown [id number] 2.16. [id number] Unknown [id number] 2.16.8 [id number] Unknown [id number] 2.16.8 [id number] Unknown [id number] 2.16.8 [id number] Unknown [id number] 2.16.8 [id number] Unknown [id number] 2.16.8 [id number] Social History Date Type Detail Facility Start: 06-24-2025 [facility] Sex Male [facility] Start: 1985 Sex Assigned At Male [facility] Start: 07-13-2025 Tobacco smoking status Never s moked tobacco (finding) [facility] Sexual Orientation [facility] osmikayla [facility] Start: 01-05-2019 Sex Male (finding) [facility] Start: 07-13-2025 Not applicable (qualifier value) [facility] Goals Date Patient Goal Desired Activity /State Functional Status Date Assessment Result Facility 07-13-2025 Functional Status ID band on, Call device within reach, Bed in low position, Wheels locked, Safety level maintained [facility] 07-13-2025 [facility] 06-27-2025 Functional status [facility] Work Phone: Mental Status Date Assessment Result Facility 07-13-2025 Mental Status Oriented x [address] [facility] 06-27-2025 Cognitive function Voice/Name [facility] Work Phone: Clinical Notes 06-24-2025 to 07-13-2025 Note Date & Type Note Facility 07-13-2025 Hospital Discharg e instructions Patient Education 07/13/2025 21:04:02 Leg Swelling in Both Legs Leg Swelling in Both Legs Swelling of the feet, ankles, and legs is called edema. It is caused by excess fluid that has collected in the tissues. Extra fluid in the body settles in the lowest part because of gravity. This is why the legs and feet are most affected. Some of the causes for edema include: Disease of the heart like congestive heart failure Standing or sitting for long periods of time Infection of the feet or legs Blood pooling in the veins of your legs (venous insufficiency) Dilated veins in your lower leg (varicose veins) Garters or other clothing that is tight on your legs. This will cause blood to pool in your legs because the clothing limits blood flow. Some medicines such as hormones like control pills, some blood pressure medicines like calcium channel blockers (amlodipine) and steroids, some antidepressants like MAO inhibitors and tricyclics Menstrual periods that cause you to retain fluids Many types of renal disease Liver failure or cirrhosis , some swelling is normal, but a sudden increase in leg swelling or weight gain can be a sign of a dangerous complication of Poor nutrition Thyroid disease Medical treatment will depend on what is causing the swelling in your legs. Your healthcare provider may prescribe water pills (diuretics) to get rid of the extra fluid. Home care Follow these guidelines when caring for yourself at home: Don't wear clothing like garters that is tight on your legs. Keep your legs up while lying or sitting. If infection, injury, or recent surgery is causing the swelling, stay off your legs as much as possible until symptoms get better. If your healthcare provider says that your leg swelling is caused by venous insufficiency or varicose veins, don't sit or candy separator enrobing one place for long periods of time. Take breaks and walk about every few hours. Brisk walking is a good exercise. It helps circulate the blood that has collected in your leg. Talk with your provider about using support stockings to stop daytime leg swelling. If your provider says that heart disease is causing your leg swelling, follow a low-salt diet to stop extra fluid from staying in your body. You may also need medicine. Follow-up care Follow up with your healthcare provider, or as advised. When to seek medical advice Call your healthcare provider right away if any of these occur: New shortness of breath or chest pain Shortness of breath or chest pain that gets worse Swelling in both legs or ankles that gets worse Swelling of the abdomen Redness, warmth, or swelling in one leg Fever of 100.4 F (38 C) or higher, or as directed by your healthcare provider Yellow color to your skin or eyes Rapid, unexplained weight gain Having to sleep upright or use an increased number of pillows [id number] [employer]. [address] [place] [address]. All rights reserved. This information is not intended as a substitute for professional medical care. Always follow your healthcare professional's instructions. 07/13/2025 21:03:55 Cellulitis Skin Infection Cellulitis Cellulitis is an infection of the deep layers of skin. A break in the skin, such as a cut or scratch, can let bacteria under the skin. If the bacteria get to deep layers of the skin, it can be serious. If not treated, cellulitis can get into the bloodstream and lymph nodes. The infection can then spread throughout the body. This causes serious illness. Cellulitis causes the affected skin to become red, swollen, warm, and sore. The reddened areas have a visible border. An open sore may leak fluid (pus). You may have a fever, chills, and pain. Cellulitis is treated with antibiotics taken for 7 to 10 days. An open sore may be cleaned and covered with cool wet gauze. Symptoms should get better 1 to 2 days after treatment is started. Make sure to take all the antibiotics for the full number of days until they are gone. Keep taking the medicine even if your symptoms go away. Home care Follow these tips: Limit the use of the part of your body with cellulitis. If the infection is on your leg, keep your leg raised while sitting. This will help to reduce swelling. Take all of the antibiotic medicine exactly as directed until it is gone. Do not miss any doses, especially during the first 7 days. Don t stop taking the medicine when your symptoms get better. Keep the affected area clean and dry. Wash your hands with soap and warm water before and after touching your skin. Anyone else who touches your skin should also wash his or her hands. Don't share towels. Follow-up care Follow up with your healthcare provider, or as advised. If your infection does not go away on the first antibiotic, your healthcare provider will prescribe a different one. When to seek medical advice Call your healthcare provider right away if any of these occur: Red areas that spread Swelling or pain that gets worse Fluid leaking from the skin (pus) Fever higher of 100.4 F (38.0 C) or higher after 2 days on antibiotics [employer]. [address] [place] [address]. All rights reserved. This information is not intended as a substitute for professional medical care. Always follow your healthcare professional's instructions. 07/13/2025 21:03:51 Addiction: Getting Help Addiction: Getting Help It was hard to admit that I had a problem. But when I did, I had to get help." Admitting that you have a problem with alcohol or drugs isn t easy. It takes courage and honesty. But once you re ready to look at your use, you ve taken a big step toward getting over the problem. When you face your problem, you also accept that you re accountable for your actions and for changing them. There are many programs and people who can help you. And keep in mind, it s OK to get help. It s also the first step to getting your life back together. Getting help and support Recovery doesn t happen right away. It s a long process. There are many steps along the way. During those steps, you ll work on changing the things that were part of your problem. A counselor or other healthcare provider can help you. So can a finance effectiveness manager, yarn winder, or rabbi who is trained in substance abuse counseling. Friends and family may also help once you are working with experts. Together you can make changes needed for success. This can help you to have a positive and rewarding life. [employer]. [address] [place] [address]. All rights reserved. This information is not intended as a substitute for professional medical care. Always follow your healthcare professional's instructions. Follow Up Care 07/13/2025 20:12:14 With:LACHO LAKHANI APRN-TRAFFIC PERSONNEL SUPERVISOR Address: [address] [place] [phone] When:2-4 days [facility] 07-13-2025 Emergency department Discharge summary Discharge Instructions Thank you for allowing [facility] to assist you with your healthcare needs. The following is important discharge information regarding your hospital visit. Diagnosis from Today's Visit Abdominal distension Alcohol abuse Cellulitis of leg Edema Jaundice Leg swelling What to Do Next Instructions from Your Care Team No qualifying data available. Post Acute Orders No qualifying data available. You Need to Schedule the Following Appointments Follow Up with LACHO LAKHANI When:Within 2-4 days Where:[address] [facility] [place] [phone] Allergies Ceclor Unknown erythromycin Unknown sulfa drugs Unknown Medications Please ask your primary doctor or pharmacist before taking any other medication not listed, including over the counter drugs, herbal medications, vitamins and or supplements as they may interact with your home medications. What How Much When Instructions Last Dose New doxycycline (doxycycline hyclate 100 mg oral capsule) 1 cap by mouth Two (2) times a day Duration: 10 Days Printed Prescription Unchanged sertraline (sertraline 50 mg oral tablet) 1 tab(s) by mouth Once a day Duration: 90 Days Unchanged sertraline (Zoloft 50 mg oral tablet) 1 tab(s) by mouth Once a day Duration: 90 Days Please take this list to your next doctor s visit. Bring all medications you take, including over the counter medications, herbals and other supplements with you to your doctor s visit. Patients and families are reminded to discard old lists and to update any records with all medication providers or retail pharmacies. Education Materials Leg Swelling in Both Legs Swelling of the feet, ankles, and legs is called edema. It is caused by excess fluid that has collected in the tissues. Extra fluid in the body settles in the lowest part because of gravity. This is why the legs and feet are most affected. Some of the causes for edema include: Disease of the heart like congestive heart failure Standing or sitting for long periods of time Infection of the feet or legs Blood pooling in the veins of your legs (venous insufficiency) Dilated veins in your lower leg (varicose veins) Garters or other clothing that is tight on your legs. This will cause blood to pool in your legs because the clothing limits blood flow. Some medicines such as hormones like control pills, some blood pressure medicines like calcium channel blockers (amlodipine) and steroids, some antidepressants like MAO inhibitors and tricyclics Menstrual periods that cause you to retain fluids Many types of renal disease Liver failure or cirrhosis , some swelling is normal, but a sudden increase in leg swelling or weight gain can be a sign of a dangerous complication of Poor nutrition Thyroid disease Medical treatment will depend on what is causing the swelling in your legs. Your healthcare provider may prescribe water pills (diuretics) to get rid of the extra fluid. Home care Follow these guidelines when caring for yourself at home: Don't wear clothing like garters that is tight on your legs. Keep your legs up while lying or sitting. If infection, injury, or recent surgery is causing the swelling, stay off your legs as much as possible until symptoms get better. If your healthcare provider says that your leg swelling is caused by venous insufficiency or varicose veins, don't sit or candy separator enrobing one place for long periods of time. Take breaks and walk about every few hours. Brisk walking is a good exercise. It helps circulate the blood that has collected in your leg. Talk with your provider about using support stockings to stop daytime leg swelling. If your provider says that heart disease is causing your leg swelling, follow a low-salt diet to stop extra fluid from staying in your body. You may also need medicine. Follow-up care Follow up with your healthcare provider, or as advised. When to seek medical advice Call your healthcare provider right away if any of these occur: New shortness of breath or chest pain Shortness of breath or chest pain that gets worse Swelling in both legs or ankles that gets worse Swelling of the abdomen Redness, warmth, or swelling in one leg Fever of 100.4 F (38 C) or higher, or as directed by your healthcare provider Yellow color to your skin or eyes Rapid, unexplained weight gain Having to sleep upright or use an increased number of pillows [phone] [employer]. [address] [place] [address], [place] [address]. All rights reserved. This information is not intended as a substitute for professional medical care. Always follow your healthcare professional's instructions. Cellulitis Cellulitis is an infection of the deep layers of skin. A break in the skin, such as a cut or scratch, can let bacteria under the skin. If the bacteria get to deep layers of the skin, it can be serious. If not treated, cellulitis can get into the bloodstream and lymph nodes. The infection can then spread throughout the body. This causes serious illness. Cellulitis causes the affected skin to become red, swollen, warm, and sore. The reddened areas have a visible border. An open sore may leak fluid (pus). You may have a fever, chills, and pain. Cellulitis is treated with antibiotics taken for 7 to 10 days. An open sore may be cleaned and covered with cool wet gauze. Symptoms should get better 1 to 2 days after treatment is started. Make sure to take all the antibiotics for the full number of days until they are gone. Keep taking the medicine even if your symptoms go away. Home care Follow these tips: Limit the use of the part of your body with cellulitis. If the infection is on your leg, keep your leg raised while sitting. This will help to reduce swelling. Take all of the antibiotic medicine exactly as directed until it is gone. Do not miss any doses, especially during the first 7 days. Don t stop taking the medicine when your symptoms get better. Keep the affected area clean and dry. Wash your hands with soap and warm water before and after touching your skin. Anyone else who touches your skin should also wash his or her hands. Don't share towels. Follow-up care Follow up with your healthcare provider, or as advised. If your infection does not go away on the first antibiotic, your healthcare provider will prescribe a different one. When to seek medical advice Call your healthcare provider right away if any of these occur: Red areas that spread Swelling or pain that gets worse Fluid leaking from the skin (pus) Fever higher of 100.4 F (38.0 C) or higher after 2 days on antibiotics 4512-0206 [employer]. [address] [place] [address], [place] [address]. All rights reserved. This information is not intended as a substitute for professional medical care. Always follow your healthcare professional's instructions. Addiction: Getting Help It was hard to admit that I had a problem. But when I did, I had to get help." Admitting that you have a problem with alcohol or drugs isn t easy. It takes courage and honesty. But once you re ready to look at your use, you ve taken a big step toward getting over the problem. When you face your problem, you also accept that you re accountable for your actions and for changing them. There are many programs and people who can help you. And keep in mind, it s OK to get help. It s also the first step to getting your life back together. Getting help and support Recovery doesn t happen right away. It s a long process. There are many steps along the way. During those steps, you ll work on changing the things that were part of your problem. A counselor or other healthcare provider can help you. So can a finance effectiveness manager, yarn winder, or rabbi who is trained in substance abuse counseling. Friends and family may also help once you are working with experts. Together you can make changes needed for success. This can help you to have a positive and rewarding life. 7612-1293 [employer]. [address] [place] [address]. All rights reserved. This information is not intended as a substitute for professional medical care. Always follow your healthcare professional's instructions. Additional Information VACCINATE! IT SAVES LIVES! Members of the community who have not yet received the COVID-19 vaccine and would like to receive it can visit one of [facility] vaccine clinics. There are many vaccine clinic locations within the [facility]. For locations and available times, please visit [email or web address].[place]. gov/. It is important to note that some COVID mobile vaccine clinics are held outdoors and may be canceled in rainy or stormy conditions. To learn more about pediatric vaccinations (ages 5-11), we invite you to visit the [facility] webpage. https://www.[facility].org/p ages/2091-Lfhqc-Svnewsziedl-Freq uasaax-Mazgt-Imemdvkld.html To learn more about the COVID-19 vaccine, we invite you to visit the CDC website for a list of frequently asked questions. https://www.cdc.gov/coronavirus/ 2019-ncov/vaccines/faq.html [facility] Patient Portal Access Instructions: Stay connected with your healthcare team and access your personal medical information anytime with the [facility] Patient Portal. If you would like a full copy of your medical records please contact the [facility] Medical Records Department Tuesday through Tuesday between 8a.m. and 4:30p.m. Please follow the directions below to access the portal: 1.Access the email account you provided upon registration to the hospital.2.Look for an invitation email from [facility].3.Open the email and access the invitation link: Accept Invitation to [employer]4.Fill in the required dalal to create your account. To access your account, visit [employer] or scan the [employer] code above. Click the blue button labeled "Access Patient Portal" and then log in with the username and password that you created in the steps above. You can then view a summary of results, a summary of your visits, and the ability to download your summaries to your computer or send the information securely to a physician. Remember that your healthcare information is confidential, so carefully consider who you will allow to register on the [employer] Patient Portal for access to your information. You can also access the [employer] Patient Portal on the [place] [employer]. Simply click on "Health Records" under "Health Data" and then click on the [employer] logo. HOW TO SAFELY DISPOSE OF PRESCRIPTION MEDICATIONS Please use one of the following methods to safely dispose of your unused medications. 1.Use a drug disposal kit: the drug disposal pouch allows you to safely discard your old and unused drugs. Ask your nurse to give you one when you are discharged.2.Visit a local take-back location: Many local pharmacies and police departments have programs that collect old and unwanted prescription drugs. Call your local pharmacy or go to http://[employer].Davia/4W1Nh4i to find one close to you.3.Make use of household items: Use cat litter or old coffee grounds to dispose medications if other options are not available. Mix your drugs with these household products, seal them in an airtight container and throw it into the garbage. Call [facility]: [phone] to be sure your drugs can be disposed of in this way. Some medicines may require a different approach.4.Never flush your medications down the toilet. IF YOU HAVE BEEN PRESCRIBED AN OPIOIDS FOR PAIN If you have been prescribed an opioid (such as hydrocodone, oxycodone or morphine), it is critical to understand the possible side effects and risks of opioid pain medications. Even when taken as directed, opioids can have several side effects including: Tolerance, meaning you might need to take more of a medication for the same pain relief. Nausea, vomiting and/or constipation. Sleepiness, dizziness, dry mouth, confusion, depression or itching. Physical dependence, meaning you have withdrawal symptoms when a medication is stopped ? this can develop within a few days. KNOW YOUR RESPONSIBILITIES It is important to know exactly how much and how often to take the opioid pain medications you are prescribed. Never take opioids in higher amounts or more often than prescribed. Do not combine opioids with alcohol or other drugs that cause drowsiness, such as benzodiazepines, also known as benzos, including diazepam and alprazolam, muscle relaxants or sleep aids. Never sell or share prescription opioids. This is illegal. Store opioids in a secure place and out of reach of others (including children, family, friends and visitors). The last page(s) of this document has been signed and retained as a CHART COPY Signatures Patient Education Materials Leg Swelling in Both Legs Cellulitis Skin Infection Addiction: Getting Help Medication Leaflets My discharge plan and instructions have been reviewed and explained to me and I,YUDI MCGOWAN M understand my current condition and have read and understand these discharge instructions. I have received a written copy of the plan/instructions. If I have questions, I am aware that I should contact my doctor. Patient/Bundle Tier And Labeler Signature: Date/Time: Relationship to Patient: Witness Name/Signature: Date/Time: [facility] 07-13-2025 Note Exam Date Time Procedure Performing Provider Status 07/13/25 8:41 PM EKG [ED AO] - CV MARLEY RICO MD; Auth (Verified) ECG Final Report Sinus tachycardia Right axis deviation Abnormal T, consider ischemia, anterior leads Electronic Signature: MARLEY RICO MD 07/13/2025 20:53:12 [facility]10-16-2025 [facility] Medical Records Department [address] [place] [address] Discharge Summary 06/27/25 1416 MR#: [id number] Acct: [id number] Name: YUDI MCGOWAN Rep #: [id number] : 1985 39 From: J Carlos Chamberlain MD PCP: Care Physician,No Primary Status:DIS IN [place] [id number] Providers Date of Admission: 06/24/25 Primary Care Physician: No Primary Care Phys Reason For Visit: ETOH DETOX Diagnosis Discharge Diagnosis (1) Alcohol abuse: Status: Acute Code(s): F10.10 - Alcohol abuse, uncomplicated Medications at Discharge Home Medications NK 06/24/25 Hospital Course Operations None Procedures None Summary of Care Provided Minutes Spent on Discharge: 39 Hospital Course: Per HPI: YUDI MCGOWAN, is a 39 M who presented to the emergency department at [facility] 06/24/2025 requesting detox from alcohol. Patient states he has been drinking heavily for the last 2 years. He states he drink intermittently before and he has had substance abuse problems previously with cocaine and went through a stent and inpatient rehab for that forced by his parents to be able to come back to work. He stated within the last 2 years he has been heavily drinking at least a half a gallon of vodka every 2 days. His last drink was just prior to presentation. He has never been through alcohol detox previously. He has never had seizure. He is currently unemployed. Vital signs on presentation showed temperature 98, heart rate 105, blood pressure 136/110, respiratory was 18 and pulse ox was 91 to 96% on room air. CBC shows a leukocytosis with a white count of 13.8 and a left shift with a 79.1% neutrophilia. Coags show a mildly elevated PTT at 15.5. Chemistry panel shows normal renal function electrolytes however he has markedly abnormal liver functions with a total bilirubin of 6.46, direct bilirubin of 5.04 and an AST of 251. His alk phos is 778. Troponin is negative x 3. proBNP is 36 and lipase was 117. Ethyl alcohol level was 319. EKG shows sinus tachycardia. Chest x-ray shows no focal consolidation. CT of the abdomen pelvis showed extensive hepatosteatosis with questionable cirrhosis, hepatomegaly, moderate ascites, thickening of the gallbladder wall, mild thickening of the small bowel and small hiatal hernia. Gallbladder ultrasound showed nonspecific dilation of the common bile duct with ascites and no acute cholecystitis, liver contour was suggestive of cirrhosis. Patient will be admitted to general medical floor for what is to be expected greater than 2 midnights for alcohol detox. Hospital Course: 1. Alcohol abuse requesting detox with alcoholic hepatitis and reactive leukocytosis???39-year-old male presented to the hospital requesting detox from alcohol. He states that he been drinking heavily for the last 2 years and that he had been drinking approximately half gallon of vodka every 2 days. He is never had a seizure with alcohol withdrawal and his last drink was just prior to being admitted. Unfortunately upon admission he refused to be part of the rehab program and in discussions he did not want to pursue either inpatient rehab or outpatient rehab. He wants to try to do it on his own. It was noted that he had elevated LFTs consistent with alcoholic hepatitis though the Madrey score was not significant enough to start him on steroids. It was discussed with him the severity of his illness but he did not seem to be too interested. CT of the abdomen and pelvis did show extensive hepatosteatosis with possible cirrhosis and moderate ascites. Over the last 2 days I had extensive discussions with him about the severity of his illness and the need to follow-up with gastroenterology, he does not want to, he thinks that he will be fine on his own and that he will be able to quit drinking and that will improve everything. We did discuss that quitting drinking will significantly help his situation but I highlighted to him that he may need significant help in this process which he denies. Unfortunately he has capacity to make his decisions and he requested to be discharged today I discussed with him the possibility of discharge and he expressed understanding of the risks and benefits of going home and would like to go home today. He did verbalize that he will quit drinking because he understands that if he continues drinking it could kill him. I recommend that he follow-up with his PCP and I recommend that he follow-up with gastroenterology as well. Physical Exam Narrative General: Alert, Oriented x3, Cooperative, mild restlessness HEENT: Atraumatic, PERRLA, EOMI, Normocephalic Oral: Moist Mucosa Neck: Supple, No JVD Lungs: Clear to auscultation, Normal air movement, No rhonchi, No wheeze, No rales Cardiovascular: Regular rate, Regular Rhythm, Normal S1, Normal S2, No murmurs Abdomen: Soft (more content not included)...[facility]10-16-2025 Discharge summary [facility] Medical Records Department [address] [place] [address] Instructions for Home/Discharge Instructions 06/27/25 1038 MR#: [id number] Acct: [id number] Name: YUDI MCGOWAN Rep #:[id number] : 1985 39 From: J Carlos heller MD PCP: Care Physician,No Primary Status :ADM IN Discharge Instructions DC O2, CPAP, BIPAP needs Home O2 Discharge instructions: No Dressing / Incision Discharge Activity: Return to Normal Activity Dressing / Incision Call your doctor if you observe: Fever of 101 or Higher, Shortness of breath, Dizziness, Fainting spells, Swelling in the ankles, Chest pain and Increased palpitations (irregular heartbeat) Follow Up Care Test Results: Test results from this visit will be discussed in further detail at your follow- up appointment, if applicable. Discharge Plan Admission Admit Date/Time: 06/24/25 18:48 Attending Provider: J Carlos Chamberlain Primary Care Provider: Care Physician,No Primary Consulting Providers: Sasha Alegre Discharge Orders/Prescriptions Prescriptions: No Action NK Referrals / Follow Up: Care Physician,No Primary [Primary Care Provider, Medical] Disposition Disposition (needs filled in before D/C Order can be placed): Home, Self Care 06/27/25 1039J Carlos Chamberlain MD CC: Dr. Sasha Alegre, DO; No Primary Care Physician ~ Signed [facility]10-15-2025 Progress note Author J Carlos Chamberlain [facility] Note Date/Time June 26, 2025 9 :16am [facility] Medical Records Department [address] [place] [address] Progress Note - Hospitalist 06/26/25 0911 MR#: [id number] Acct: [id number] Name: YUDI MCGOWAN Rep #:[id number] : 1985 39 From: J Carlos heller MD PCP: Care Physician,No Primary Status :ADM IN Location: MS3 [id number] Subjective Subjective CIWA score of 8, blood pressures are still mildly elevated Objective Data Objective Data Vital Signs: Vital Signs Temp Pulse Resp BP Pulse Ox O2 Del Method 98.2 F 134 H 18 147/116 H 96 Room Air 06/26/25 08:59 06/26/25 08:59 06/26/25 08:59 06/26/25 08:59 06/26/25 08:59 06/26/25 08:59 Oxygen Delivery Method Room Air Weight: 208 lb 5.389 oz Body Mass Index (BMI) 29.8 Intake & Output: Intake and Output for Last 24 Hours 06/25/25 06/26/25 06/27/25 03:59 03:59 03:59 Intake Total 1010 / 1010 3157 / 3157 500 / 500 Output Total 1200 / 1200 Balance 1010 / 1010 1957 / 1957 500 / 500 Lab / Micro Data 06/25/25 06:25 06/26/25 06:06 Labs: Laboratory Results - last 24 hr 06/26/25 06:06: Sodium 131 L, Potassium 3.4, Chloride 97 L, Carbon Dioxide 22.2,Anion Gap 12, BUN 7, Creatinine 0.56 L, Estim Creat Clear Calc 202.38, Est GFR (MDRD) Non-Af 128, BUN/Creatinine Ratio 12.2, Glucose 104 H, Calcium 7.9, Total Bilirubin 8.37 H, AST 192 H, ALT 31, Alkaline Phosphatase 756 H, Total Protein 6.5, Albumin 2.5 L, Globulin 4.0, Albumin/Globulin Ratio 0.6 L Physical Exam Narrative General: Alert, Oriented x3, Cooperative, mild restlessness HEENT: Atraumatic, PERRLA, EOMI, Normocephalic Oral: Moist Mucosa Neck: Supple, No JVD Lungs: Clear to auscultation, Normal air movement, No rhonchi, No wheeze, No rales Cardiovascular: Regular rate, Regular Rhythm, Normal S1, Normal S2, No murmurs Abdomen: Soft, Non Tender, Non-Distended, No Hepato-splenomegaly Extremities: No edema, Capillary Refill Less than 3 Seconds Skin: No rashes, No breakdown Musculoskeletal: No Tenderness to Palpation of Joints or Extremities Neurological: No focal neurological deficits, moves all extremities, slight tremors Psych/Mental Status: Anxious Assessment & Plan Assessment/Plan (1) Alcohol abuse: PLAN: Plan 1. Alcohol abuse requesting detox with alcoholic hepatitis with a reactive leukocytosis ? CIWA score of 9 today ? Continue with the alcohol withdrawal protocol ? Will follow CMP in the morning, bilirubin still little bit elevated though does not require steroids at this time DVT: Ambulation Charges/Coding Visit Charges Inpatient E&M: 15673 Subs Hosp L2 06/26/2516 <Electronically signed by J Carlos Chamberlain MD> Cosigner Signature (if applicable): CC: ~ Signed [facility] Work Phone: 1(935) 269-909310-15-2025 Progress note [facility] Medical Records Department [address] [place] [id number] Progress Note - Hospitalist 06/26/25910 MR#: [id number] Acct: [id number] Name: YUDI MCGOWAN Rep #:[id number] : 1985 39 From: J Carlos heller MD PCP: Care Physician,No Primary Status :ADM IN Location: [address] Subjective Subjective CIWA score of 8, blood pressures are still mildly elevated Objective Data Objective Data Vital Signs: Vital Signs Temp Pulse Resp BP Pulse Ox O2 Del Method 98.2 F 134 H 18 147/116 H 96 Room Air 06/26/25 08:59 06/26/25 08:59 06/26/25 08:59 06/26/25 08:59 06/26/25 08:59 06/26/25 08:59 Oxygen Delivery Method Room Air Weight: 208 lb 5.389 oz Body Mass Index (BMI) 29.8 Intake & Output: Intake and Output for Last 24 Hours 06/25/25 06/26/25 06/27/25 03:59 03:59 03:59 Intake Total 1010 / 1010 3157 / 3157 500 / 500 Output Total 1200 / 1200 Balance 1010 / 1010 1957 / 1957 500 / 500 Lab / Micro Data 06/25/25 06:25 06/26/25 06:06 Labs: Laboratory Results - last 24 hr 06/26/25 06:06: Sodium 131 L, Potassium 3.4, Chloride 97 L, Carbon Dioxide 22.2,Anion Gap 12, BUN 7, Creatinine 0.56 L, Estim Creat Clear Calc 202.38, Est GFR (MDRD) Non-Af 128, BUN/Creatinine Ratio 12.2, Glucose 104 H, Calcium 7.9, Total Bilirubin 8.37 H, AST 192 H, ALT 31, Alkaline Phosphatase 756 H, Total Protein 6.5, Albumin 2.5 L, Globulin 4.0, Albumin/Globulin Ratio 0.6 L Physical Exam Narrative General: Alert, Oriented x3, Cooperative, mild restlessness HEENT: Atraumatic, PERRLA, EOMI, Normocephalic Oral: Moist Mucosa Neck: Supple, No JVD Lungs: Clear to auscultation, Normal air movement, No rhonchi, No wheeze, No rales Cardiovascular: Regular rate, Regular Rhythm, Normal S1, Normal S2, No murmurs Abdomen: Soft, Non Tender, Non-Distended, No Hepato-splenomegaly Extremities: No edema, Capillary Refill Less than 3 Seconds Skin: No rashes, No breakdown Musculoskeletal: No Tenderness to Palpation of Joints or Extremities Neurological: No focal neurological deficits, moves all extremities, slight tremors Psych/Mental Status: Anxious Assessment & Plan Assessment/Plan (1) Alcohol abuse: PLAN: Plan 1. Alcohol abuse requesting detox with alcoholic hepatitis with a reactive leukocytosis ? CIWA score of 9 today ? Continue with the alcohol withdrawal protocol ? Will follow CMP in the morning, bilirubin still little bit elevated though does not require steroids at this time DVT: Ambulation Charges/Coding Visit Charges Inpatient E&M: 03671 Subs Hosp L2 06/26/25 0916 Cosigner Signature (if applicable): CC: ~ Signed [facility]10-14-2025 Progress note Author J Carlos Chamberlain [facility] Note Date/Time June 25, 2025 1 0:30am [facility] Medical Records Department [address] [place] [address] Progress Note - Hospitalist 06/25/25 1026 MR#: [id number] Acct: [id number] Name: YUDI MCGOWAN Carl Rep #:[id number] : 1985 39 From: J Carlos heller MD PCP: Care Physician,No Primary Status :ADM IN Location: MS3 [id number] Subjective Subjective A little hypertensive overnight but his CIWA score is a 9 if he remains hypertensive as his CIWA score normalizes may consider adjusting medications Objective Data Objective Data Vital Signs: Vital Signs Temp Pulse Resp BP Pulse Ox O2 Del Method 97.7 F L 124 H 18 166/127 H 95 Room Air 06/25/25 08:34 06/25/25 08:34 06/25/25 08:34 06/25/25 08:34 06/25/25 08:34 06/25/25 08:34 Oxygen Delivery Method Room Air Weight: 202 lb 6.15 oz Body Mass Index (BMI) 29.0 Intake & Output: Intake and Output for Last 24 Hours 06/24/25 06/25/25 06/26/25 03:59 03:59 03:59 Intake Total 1010 / 1010 1600 / 1600 Output Total 400 / 400 Balance 1010 / 1010 1200 / 1200 Lab / Micro Data 06/25/25 06:25 06/25/25 06:25 Labs: Laboratory Results - last 24 hr 06/24/25 14:10: WBC 13.8 H, RBC 3.68 L, Hgb 13.2, Hct 38.0 L, MCV 103.3 H, MCH 35.9 H, MCHC 34.7, RDW Std Deviation 55.8 H, RDW Coeff of Brodie 14.7 H, Plt Count 302, MPV 11.0, Immature Gran % (Auto) 0.900, Neut % (Auto) 79.1 H, Lymph % (Auto) 12.7 L, [place] % (Auto) 6.4, Eos % (Auto) 0.3, Baso % (Auto) 0.6, Absolute Neuts (auto) 10.9 H, Absolute Lymphs (auto) 1.75, Nucleated RBC % 0 06/24/25 14:30: Sodium 134, Potassium 3.4, Chloride 97 L, Carbon Dioxide 21.4, Anion Gap 16 H, BUN 7, Creatinine 0.52 L, Estim Creat Clear Calc 228.31, Est GFR (MDRD) Non-Af 131, BUN/Creatinine Ratio 12.6, Glucose 110 H, Calcium 7.7, Troponin T High Sens < 6 06/24/25 15:42: PT 15.5 H, INR 1.2, APTT 32.8, Total Bilirubin 6.46 H, Direct Bilirubin 5.04 H, AST 251 H, ALT 36, Alkaline Phosphatase 778 H, NT pro BNP II <36, Total Protein 6.5, Albumin 2.5 L, Globulin 4.0, Lipase 117 H 06/24/25 16:28: Troponin T Hi Sens 2 Hr 7 06/24/25 18:26: Troponin T Hi Sens 4Hr 8 06/24/25 : Ethyl Alcohol 319.0 H* 06/25/25 00:23: Urine Color Eli, Urine Clarity Clear, Urine pH 6.5, Ur Specific [place] 1.015, Urine Protein 30 H, Urine Glucose (UA) Normal, Urine Ketones Negative, Urine Occult Blood 10 H, Urine Nitrite Positive H, Urine Bilirubin 6 H, Urine Urobilinogen 12 H, Ur Leukocyte Esterase 25 H, Urine RBC 0-5 SEEN, Urine WBC 0 SEEN, Ur Squamous Epith Cells 0-5 SEEN, Amorphous Sediment 1+, Urine Bacteria 2+, Urine Mucus 1+, Urine Opiates Screen PRESUMPTIVE POSITIVE, U Buprenorphine Qual NEGATIVE, Ur Oxycodone Screen NEGATIVE, Urine Methadone Screen NEGATIVE, Urine Fentanyl Screen NEGATIVE, Ur Barbiturates Screen NEGATIVE, Ur Phencyclidine Scrn NEGATIVE, Ur Amphetamines Screen PRESUMPTIVE POSITIVE, U Benzodiazepines Scrn PRESUMPTIVE POSITIVE, Urine CocaineScreen NEGATIVE, U Cannabinoids Screen NEGATIVE 06/25/25 06:25: WBC 10.3, RBC 3.40 L, Hgb 11.9 L, Hct 35.3 L, MCV 103.8 H, MCH 35.0 H, MCHC 33.7, RDW Std Deviation 56.5 H, RDW Coeff of Brodie 14.8 H, Plt Count 215, MPV 11.0, Immature Gran % (Auto) 0.600, Neut % (Auto) 80.4 H, Lymph % (Auto) 9.9 L, Iroquois % (Auto) 8.3, Eos % (Auto) 0.2, Baso % (Auto) 0.6, Absolute Neuts (auto) 8.3 H, Absolute Lymphs (auto) 1.01, Nucleated RBC % 0, Sodium 134, Potassium 3.7, Chloride 99, Carbon Dioxide 21.1, Anion Gap 14, BUN 7, Creatinine0.50 L, Estim Creat Clear Calc 223.67, Est GFR (MDRD) Non-Af 132, BUN/CreatinineRatio 14.7, Glucose 92, Calcium 7.7, Phosphorus 2.0 L, Magnesium 1.6, Total Bilirubin 6.97 H, AST 226 H, ALT 35, Alkaline Phosphatase 766 H, Total Protein 6.5, Albumin 2.5 L, Globulin 3.9, Albumin/Globulin Ratio 0.6 L, TSH 3.940 Radiography Diagnostic Testing: Radiology Impression Chest X-Ray 06/24/25 14:45 IMPRESSION: No focal consolidation. Reading Location: [facility] Abdomen/Pelvis CT 06/24/25 15:10 IMPRESSION: Extensive hepatic steatosis and question cirrhosis. Hepatomegaly. Moderate ascites. Acute hepatitis is not entirely excluded. Gallbladder wall is thickened which may be reactive to adjacent inflamed hepatictissue. Scattered mild thickening of the small bowel wall which may reflect enteritis. Small hiatal hernia. Reading Location: [facility] Gallbladder Ultrasound 06/24/25 16:27 IMPRESSION: Hepatomegaly and hepatic steatosis. Question nodular liver contour which may reflect cirrhosis. Nonspecific dilation of the CBD. Ascites noted. No acute cholecystitis. Reading Location: [facility] Physical Exam Narrative General: Alert, Oriented x3, Cooperative, mild restlessness HEENT: Atraumatic, PERRLA, EOMI, Normocephalic Oral: Moist Mucosa Neck: Supple, No JVD Lungs: Clear to auscultation, Normal air movement, No rhonchi, No wheeze, No rales Cardiovascular: Regular rate, Regular Rhythm, Normal S1, Normal S2, No murmurs Abdomen: Soft, Non Tender, Non-Distended, No Hepato-splenomegaly Extremities: No edema, Capillary Refill Less than 3 Seconds Skin: No rashes, No breakdown Musculoskeletal: No Tenderness to Palpation of Joints or Extremities Neurological: No focal neurological deficits, moves all extremities, slight tremors Psych/Mental Status: Anxious Assessment & Plan Assessment/Plan (1) Alcohol abuse: PLAN: Plan 1. Alcohol abuse requesting detox with alcoholic hepatitis with a reactive leukocytosis ? CIWA score of 9 today ? Continue with the alcohol withdrawal protocol ? Will follow CMP in the morning, bilirubin still little bit elevated though does not require steroids at this time 2. Hypophosphatemia ? Will replace with potassium phosphate today DVT: Ambulation Charges/Coding Visit Charges Inpatient E&M: 90879 Subs Hosp L2 06/25/25 1030 <Electronically signed by J Carlos Chamberlain MD> Cosigner Signature (if applicable): CC: ~ Signed [facility] Work Phone: [phone]) 362-276510-14-2025 Progress note [facility] Medical Records Department [address] [place] [address] Progress Note - Hospitalist 06/25/25 1026 MR#: [id number] Acct: [id number] Name: YUDI MCGOWAN Rep #:[id number] : 1985 39 From: J Carlos heller MD PCP: Care Physician,No Primary Status :ADM IN [id number] Subjective Subjective A little hypertensive overnight but his CIWA score is a 9 if he remains hypertensive as his CIWA score normalizes may consider adjusting medications Objective Data Objective Data Vital Signs: Vital Signs Temp Pulse Resp BP Pulse Ox O2 Del Method 97.7 F L 124 H 18 166/127 H 95 Room Air 06/25/25 08:34 06/25/25 08:34 06/25/25 08:34 06/25/25 08:34 06/25/25 08:34 06/25/25 08:34 Oxygen Delivery Method Room Air Weight: 202 lb 6.15 oz Body Mass Index (BMI) 29.0 Intake & Output: Intake and Output for Last 24 Hours 06/24/25 06/25/25 06/26/25 03:59 03:59 03:59 Intake Total 1010 / 1010 1600 / 1600 Output Total 400 / 400 Balance 1010 / 1010 1200 / 1200 Lab / Micro Data 06/25/25 06:25 06/25/25 06:25 Labs: Laboratory Results - last 24 hr 06/24/25 14:10: WBC 13.8 H, RBC 3.68 L, Hgb 13.2, Hct 38.0 L, MCV 103.3 H, MCH 35.9 H, MCHC 34.7, RDW Std Deviation 55.8 H, RDW Coeff of Brodie 14.7 H, Plt Count 302, MPV 11.0, Immature Gran % (Auto) 0.900, Neut % (Auto) 79.1 H, Lymph % (Auto) 12.7 L, Iroquois % (Auto) 6.4, Eos % (Auto) 0.3, Baso % (Auto)0.6, Absolute Neuts (auto) 10.9 H, Absolute Lymphs (auto) 1.75, Nucleated RBC % 0 06/24/25 14:30: Sodium 134, Potassium 3.4, Chloride 97 L, Carbon Dioxide 21.4, Anion Gap 16 H, BUN 7, Creatinine 0.52 L, Estim Creat Clear Calc 228.31, Est GFR (MDRD) Non-Af 131, BUN/Creatinine Ratio12.6, Glucose 110 H, Calcium 7.7, Troponin T High Sens < 6 06/24/25 15:42: PT 15.5 H, INR 1.2, APTT 32.8, Total Bilirubin 6.46 H, Direct Bilirubin 5.04 H, QMT872 H, ALT 36, Alkaline Phosphatase 778 H, NT pro BNP II <36, Total Protein 6.5, Albumin 2.5 L, Globulin 4.0, Lipase 117 H 06/24/25 16:28: Troponin T Hi Sens 2 Hr 7 06/24/25 18:26: Troponin T Hi Sens 4Hr 8 06/24/25 : Ethyl Alcohol 319.0 H* 06/25/25 00:23: Urine Color Eli, Urine Clarity Clear, Urine pH 6.5, Ur Specific [place] 1.015, Urine Protein 30 H, Urine Glucose (UA) Normal, Urine Ketones Negative, Urine Occult Blood 10 H, Urine Nitrite Positive H, Urine Bilirubin 6 H, Urine Urobilinogen 12 H, Ur Leukocyte Esterase 25 H, Urine RBC 0- 5 SEEN, Urine WBC 0 SEEN, Ur Squamous Epith Cells 0-5 SEEN, Amorphous Sediment 1+, Urine Bacteria 2+, Urine Mucus 1+, Urine Opiates Screen PRESUMPTIVE POSITIVE, U Buprenorphine Qual NEGATIVE, UrOxycodone Screen NEGATIVE, Urine Methadone Screen NEGATIVE, Urine Fentanyl Screen NEGATIVE, Ur Barbiturates Screen NEGATIVE, Ur Phencyclidine Scrn NEGATIVE, Ur Amphetamines Screen PRESUMPTIVE POSITIVE, U Benzodiazepines Scrn PRESUMPTIVE POSITIVE, Urine CocaineScreen NEGATIVE, U Cannabinoids Screen NEGATIVE 06/25/25 06:25: WBC 10.3, RBC 3.40 L, Hgb 11.9 L, Hct 35.3 L, MCV 103.8 H, MCH 35.0 H, MCHC 33.7, RDW Std Deviation 56.5 H, RDW Coeff of Brodie 14.8 H, Plt Count 215, MPV 11.0, Immature Gran % (Auto) 0.600, Neut % (Auto) 80.4 H, Lymph % (Auto) 9.9 L, [place]roquois % (Auto) 8.3, Eos % (Auto) 0.2, Baso % (Auto) 0.6, Absolute Neuts (auto) 8.3 H, Absolute Lymphs (auto) 1.01, Nucleated RBC % 0, Sodium 134, Potassium 3.7, Chloride 99, Carbon Dioxide 21.1, Anion Gap 14, BUN 7, Creatinine0.50 L, Estim Creat Clear Calc 223.67, Est GFR (MDRD) Non-Af 132, BUN/CreatinineRatio 14.7, Glucose 92, Calcium 7.7, Phosphorus 2.0 L, Magnesium 1.6, Total Bilirubin 6.97 H, AST 226 H, ALT 35, Alkaline Phosphatase 766 H, TotalProtein 6.5, Albumin 2.5 L, Globulin 3.9, Albumin/Globulin Ratio 0.6 L, TSH 3.940 Radiography Diagnostic Testing: Radiology Impression Chest X-Ray 06/24/25 14:45 IMPRESSION: No focal consolidation. Reading Location: [facility] Abdomen/Pelvis CT 06/24/25 15:10 IMPRESSION: Extensive hepatic steatosis and question cirrhosis. Hepatomegaly. Moderate ascites. Acute hepatitisis not entirely excluded. Gallbladder wall is thickened which may be reactive to adjacent inflamed hepatictissue. Scattered mild thickening of the small bowel wall which may reflect enteritis. Small hiatal hernia. Reading Location: [facility] Gallbladder Ultrasound 06/24/25 16:27 IMPRESSION: Hepatomegaly and hepatic steatosis. Question nodular liver contour which may reflect cirrhosis. Nonspecific dilation of the CBD. Ascites noted. No acute cholecystitis. Reading Location: [facility] Physical Exam Narrative General: Alert, Oriented x3, Cooperative, mild restlessness HEENT: Atraumatic, PERRLA, EOMI, Normocephalic Oral: Moist Mucosa Neck: Supple, No JVD Lungs: Clear to auscultation, Normal air movement, No rhonchi, No wheeze, No rales Cardiovascular: Regular rate, Regular Rhythm, Normal S1, Normal S2, No murmurs Abdomen: Soft, Non Tender, Non-Distended, No Hepato-splenomegaly Extremities: No edema, Capillary Refill Less than 3 Seconds Skin: No rashes, No breakdown Musculoskeletal: No Tenderness to Palpation of Joints or Extremities Neurological: No focal neurological deficits, moves all extremities, slight tremors Psych/Mental Status: Anxious Assessment & Plan Assessment/Plan (1) Alcohol abuse: PLAN: Plan 1. Alcohol abuse requesting detox with alcoholic hepatitis with a reactive leukocytosis ? CIWA score of 9 today ? Continue with the alcohol withdrawal protocol ? Will follow CMP in the morning, bilirubin still little bit elevated though does not require steroids at this time 2. Hypophosphatemia ? Will replace with potassium phosphate today DVT: Ambulation Charges/Coding Visit Charges Inpatient E&M: 21715 Subs Hosp L2 06/25/25 1030 Cosigner Signature (if applicable): CC: ~ Signed [facility]10-13-2025 History and physical note Author Sasha Alegre [facility] Note Date/Time June 24, 2025 9 :11pm [facility] Medical Records Department [address] [place] [address] H&P Exam - Hospitalist 06/24/25 1854 MR#: [id number] Acct: [id number] Name: YUDI MCGOWAN Rep #:[id number] : 1985 39 From: Sasha Alegre DO PCP: Care Physician,No Primary Status :ADM IN Location: [facility] [id number] HPI - General General Date of Admission: 06/24/25 Date of Service: 06/24/25 Chief Complaint: Alcohol detox HPI Narrative YUDI MCGOWAN, is a 39 M who presented to the emergency department at [facility] 06/24/2025 requesting detox from alcohol. Patient states he has been drinking heavily for the last 2 years. He states he drink intermittently before and he has had substance abuse problems previously with cocaine and went through a stent and inpatient rehab for that forced by his parents to be able to come back to work. He stated within the last 2 years he has been heavily drinking at least a half a gallon of vodka every 2 days. His last drink was just prior to presentation. He has never been through alcohol detox previously. He has never had seizure. He is currently unemployed. Vital signs on presentation showed temperature 98, heart rate 105, blood pressure 136/110, respiratory was 18 and pulse ox was 91 to 96% on room air. CBC shows a leukocytosis with a white count of 13.8 and a left shift with a 79.1% neutrophilia. Coags show a mildly elevated PTT at 15.5. Chemistry panel shows normal renal function electrolytes however he has markedly abnormal liver functions with a total bilirubin of 6.46, direct bilirubin of 5.04 and an AST of251. His alk phos is 778. Troponin is negative x 3. proBNP is 36 and lipase was 117. Ethyl alcohol level was 319. EKG shows sinus tachycardia. Chest x-ray shows no focal consolidation. CT of the abdomen pelvis showed extensive hepatosteatosis with questionable cirrhosis, hepatomegaly, moderate ascites, thickening of the gallbladder wall, mild thickening of the small bowel and smallhiatal hernia. Gallbladder ultrasound showed nonspecific dilation of the commonbile duct with ascites and no acute cholecystitis, liver contour was suggestive of cirrhosis. Patient will be admitted to general medical floor for what is to be expected greater than 2 midnights for alcohol detox. [facility] Medical History Anxiety Depression Hypertension GERD (gastroesophageal reflux disease) Substance abuse Alcohol abuse Irregular heart beat Home Medications ?Medication ?Instructions ?Recorded ?Last Taken ?Type NK 06/24/25 Unknown History Allergy/AdvReac Type Severity Reaction Status Date / Time No Known Allergies Allergy Verified 06/24/25 13:50 no significant family history no surgical history Social History (Updated 06/24/25 @ 21:[address] Sasha Alegre, DO) Smoking Status: Former smoker alcohol intake: current alcohol intake frequency: other Alcohol type: hard liquor details: Patient drinks 1 gallon of vodka every 2 days substance use type: former substance user Date of last use: Cocaine ROS Constitutional Constitutional: Denies anorexia, change in weight, chills, fatigue, fever(s), malaise, night sweats, weakness or other Eyes Eyes: Denies blurry vision, change in eye color, change in vision, discharge from eye(s), double vision, erythema, eye pain, loss of vision or other ENT HEENT: Denies abnormal hearing, dysphagia, ear pain, epistaxis, headache(s), hearing loss, nasal congestion, nasal discharge, post nasal drip, sinus pressure, sore throat or other Cardiovascular Cardiovascular: Denies chest pain, claudication, dyspnea on exertion, edema, lightheadedness, orthopnea, palpitations, paroxysmal nocturnal dyspnea, rapid heart rate, syncope or other Respiratory/Chest Respiratory/Chest: Denies cough, dyspnea, excessive phlegm production, hemoptysis, productive cough, shortness of breath at rest, shortness of breath with exertion, wheezing or other Gastrointestinal Gastrointestinal: Reports abdominal pain and nausea; Denies coffee ground emesis, constipation, diarrhea, dyspepsia, hematemesis, hematochezia, loose stools, melena, vomiting or other Genitourinary Genitourinary: Denies burning urination, difficulty urinating, dysuria, hematuria, nocturia, urinary frequency, urinary hesitancy, urinary incontinence,urinary urgency or other Musculoskeletal Musculoskeletal: Denies arthralgias, back pain, joint pain, joint stiffness, joint swelling, myalgias, neck pain or other Neurologic Neurologic: Denies abnormal gait, abnormal speech, confusion, disequilibrium, dizziness, focal weakness, headache(s), numbness, paresthesias, seizure-like activity, seizures, syncope, tingling, tremor(s) or other Psychiatric Psychiatric: Denies anxiety, depression, homicidal ideation, suicidal ideation or other Endocrine Endocrinology: Denies change in body appearance, cold intolerance, excessive sweating, heat intolerance, polydipsia, polyuria or other Hematologic/Lymphatic Hematologic/Lymphatic: Denies anemia, easy bleeding, easy bruising, lymphadenopathy or other Allergic/Immunologic Allergic/Immunologic: Denies rhinitis, hives, eczemia, asthma or other Vital Signs Vital Signs Vital Signs: 06/24/25 13:46 06/24/25 14:46 06/24/25 14:55 Temperature 98.3 F Temperature Source Oral Pulse Rate 90 Respiratory Rate 16 Blood Pressure 182/149 H 136/110 H Blood Pressure Mean 160 118 Pulse Ox 98 Oxygen Delivery Method Room Air Room Air 06/24/25 15:00 06/24/25 16:00 06/24/25 18:07 Temperature Temperature Source Pulse Rate 105 H 131 H 135 H Respiratory Rate 18 18 Blood Pressure 154/112 H 154/112 H 168/124 H Blood Pressure Mean 126 126 138 Pulse Ox 91 96 Oxygen Delivery Method Room Air Weight Weight: 104.2 kg Body Mass Index (BMI) 32.9 Physical Exam Const alert, oriented x3 and well nourished; Negative for average body habitus or healthy appearing Constitutional Narrative: Overweight, tremulous, middle-aged, white male, walking around room putting his gown on, appears slightly confused but cooperative, does not appear toxic, does look older than stated age General Appearance: cooperative HEENT normocephalic, head/scalp atraumatic, hearing grossly normal bilaterally and moist oral mucous membranes HEENT Narrative: Mallampati 2-3, no thrush Resp normal respiratory effort, no retractions, no use of accessory muscles and clearto auscultation bilaterally Auscultation: Negative for rales, rhonchi or wheezes Cardio regular rhythm, S1 normal heart sound, S2 normal heart sound, no murmurs, no rub, no gallops and no clicks; Negative for regular rate Cardio Narrative: Tachycardic GI normal to inspection, nondistended, normoactive bowel sounds and soft to palpation GI Narrative: Mild tenderness in epigastrium, no rebound Extremity no clubbing, cyanosis or edema Extremity Narrative: 2+ pedal pulses Neuro moves all extremities and no focal motor deficits Neuro Narrative: Mild tremor, ambulates independently, speech is slightly slurred due to intoxication Psych affect normal Psych Narrative: Thankful for treatment, interacts appropriately Results Lab / Micro Data 06/24/25 14:10 06/24/25 14:30 Labs: Laboratory Results - last 24 hr 06/24/25 14:10: WBC 13.8 H, RBC 3.68 L, Hgb 13.2, Hct 38.0 L, MCV 103.3 H, MCH 35.9 H, MCHC 34.7, RDW Std Deviation 55.8 H, RDW Coeff of Brodie 14.7 H, Plt Count 302, MPV 11.0, Immature Gran % (Auto) 0.900, Neut % (Auto) 79.1 H, Lymph % (Auto) 12.7 L, [place] % (Auto) 6.4, Eos % (Auto) 0.3, Baso % (Auto) 0.6, Absolute Neuts (auto) 10.9 H, Absolute Lymphs (auto) 1.75, Nucleated RBC % 0 06/24/25 14:30: Sodium 134, Potassium 3.4, Chloride 97 L, Carbon Dioxide 21.4, Anion Gap 16 H, BUN 7, Creatinine 0.52 L, Estim Creat Clear Calc 228.31, Est GFR (MDRD) Non-Af 131, BUN/Creatinine Ratio 12.6, Glucose 110 H, Calcium 7.7, Troponin T High Sens < 6 06/24/25 15:42: PT 15.5 H, INR 1.2, APTT 32.8, Total Bilirubin 6.46 H, Direct Bilirubin 5.04 H, AST 251 H, ALT 36, Alkaline Phosphatase 778 H, NT pro BNP II <36, Total Protein 6.5, Albumin 2.5 L, Globulin 4.0, Lipase 117 H 06/24/25 16:28: Troponin T Hi Sens 2 Hr 7 06/24/25 : Ethyl Alcohol 319.0 H* Imaging Radiology Impression Chest X-Ray 06/24/25 14:45 IMPRESSION: No focal consolidation. Reading Location: [facility] Abdomen/Pelvis CT 06/24/25 15:10 IMPRESSION: Extensive hepatic steatosis and question cirrhosis. Hepatomegaly. Moderate ascites. Acute hepatitis is not entirely excluded. Gallbladder wall is thickened which may be reactive to adjacent inflamed hepatictissue. Scattered mild thickening of the small bowel wall which may reflect enteritis. Small hiatal hernia. Reading Location: [facility] Gallbladder Ultrasound 06/24/25 16:27 IMPRESSION: Hepatomegaly and hepatic steatosis. Question nodular liver contour which may reflect cirrhosis. Nonspecific dilation of the CBD. Ascites noted. No acute cholecystitis. Reading Location: [facility] Assessment & Plan Assessment/Plan (1) Admitted to alcohol detoxification center: (2) Alcohol abuse: (3) Alcoholic hepatitis: (4) Leukocytosis: (5) Tachycardia: PLAN: Plan Alcohol abuse with pending alcohol withdrawal - Patient drinks a gallon of vodka every 2 days - Has never been through alcohol detoxification previously - Phenobarbital taper as ordered - As needed Ativan with CIWA - Supportive medications for symptoms related alcohol withdrawal - Start thiamine and folate - 180 consultation for assistance with discharge planning - case management/social work consultation for assistance with discharge planning Alcoholic hepatitis/cirrhosis - Patient with markedly elevated LFTs and bilirubin - Maddrey score is 24 so not a candidate for steroids - Patient does have moderate ascites and may need to start diuretic once he is more clinically stable - Could consider nadolol as well - Suggest referral to GI after discharge Leukocytosis - Suspect reactive - No signs of infection - Monitor clinically with repeat lab in a.m. Tachycardia - Related to alcohol withdrawal - Monitor History of cocaine abuse - Patient denies any ongoing use since he has gone through rehab DVT prophylaxis - Low risk - Encourage frequent and early ambulation CODE STATUS - Full code Charges/Coding Visit Charges Inpatient E&M: 77402 Init Hosp L2 06/24/25 2111 <Electronically signed by Sasha Alegre DO> Cosigner Signature (if applicable): CC: Dr. Sasha Alegre DO; No Primary Care Physician~ Signed [facility] Work Phone: [phone]) [phone] History and physical note [facility] Medical Records Department [address] [place] [address] H&P Exam - Hospitalist 06/24/25 1854 MR#: [id number] Acct: [id number] Name: YUDI MCGOWAN Rep #:[id number] : 1985 39 From: Sasha Alegre DO PCP: Care Physician,No Primary Status :ADM IN Location: [place] [address] HPI - General General Date of Admission: 06/24/25 Date of Service: 06/24/25 Chief Complaint: Alcohol detox HPI Narrative YUDI MCGOWAN, is a 39 M who presented to the emergency department at [facility] 06/24/2025 requesting detox from alcohol. Patient states he has been drinking heavily for the last 2 years. He states he drink intermittently before and he has had substance abuse problems previously with cocaine and went through a stent and inpatient rehab for that forced by his parents to be able tocome back to work. He stated within the last 2 years he has been heavily drinking at least a half agallon of vodka every 2 days. His last drink was just prior to presentation. He has never been through alcohol detox previously. He has never had seizure. He is currently unemployed. Vital signs on presentation showed temperature 98, heart rate 105, blood pressure 136/110, respiratory was 18 and pulse ox was 91 to 96% on room air. CBC shows a leukocytosis with a white count of 13.8 and a left shift with a 79.1% neutrophilia. Coags show a mildly elevated PTT at 15.5. Chemistry panel shows normal renal function electrolytes however he has markedly abnormal liver functions with a total bilirubin of 6.46, direct bilirubin of 5.04 and an AST of251. His alk phos is 778. Troponin is negative x 3. proBNP is 36 and lipase was 117. Ethyl alcohol level was 319. EKG shows sinus tachycardia. Chest x-ray shows no focal consolidation. CT of the abdomen pelvis showed extensive hepatosteatosis with questionable cirrhosis, hepatomegaly, moderate ascites, thickening of the gallbladder wall, mild thickening of the small bowel and smallhiatal hernia. Gallbladder ultrasound showed nonspecific dilation of the commonbile duct with ascites and no acute cholecystitis, liver contour was sugg estive of cirrhosis. Patient will be admitted to general medical floor for what is to be expected greater than 2 midnights for alcohol detox. [facility] Medical History Anxiety Depression Hypertension GERD (gastroesophageal reflux disease) Substance abuse Alcohol abuse Irregular heart beat Home Medications ?Medication ?Instructions ?Recorded ?Last Taken ?Type NK 06/24/25 Unknown History Allergy/AdvReac Type Severity Reaction Status Date / Time No Known Allergies Allergy Verified 06/24/25 13:50 no significant family history no surgical history Social History (Updated 06/24/25 @ 21:[address] Sasha Alegre DO) Smoking Status: Former smoker alcohol intake: current alcohol intake frequency: other Alcohol type: hard liquor details: Patient drinks 1 gallon of vodka every 2 days substance use type: former substance user Date of last use: Cocaine ROS Constitutional Constitutional: Denies anorexia, change in weight, chills, fatigue, fever(s), malaise, night sweats, weakness or other Eyes Eyes: Denies blurry vision, change in eye color, change in vision, discharge from eye(s), double vision, erythema, eye pain, loss of vision or other ENT HEENT: Denies abnormal hearing, dysphagia, ear pain, epistaxis, headache(s), hearing loss, nasal congestion, nasal discharge, post nasal drip, sinus pressure, sore throat or other Cardiovascular Cardiovascular: Denies chest pain, claudication, dyspnea on exertion, edema, lightheadedness, orthopnea, palpitations, paroxysmal nocturnal dyspnea, rapid heart rate, syncope or other Respiratory/Chest Respiratory/Chest: Denies cough, dyspnea, excessive phlegm production, hemoptysis, productive cough, shortness of breath at rest, shortness of breath with exertion, wheezing or other Gastrointestinal Gastrointestinal: Reports abdominal pain and nausea; Denies coffee ground emesis, constipation, diarrhea, dyspepsia, hematemesis, hematochezia, loose stools, melena, vomiting or other Genitourinary Genitourinary: Denies burning urination, difficulty urinating, dysuria, hematuria, nocturia, urinary frequency, urinary hesitancy, urinary incontinence,urinary urgency or other Musculoskeletal Musculoskeletal: Denies arthralgias, back pain, joint pain, joint stiffness, joint swelling, myalgias, neck pain or other Neurologic Neurologic: Denies abnormal gait, abnormal speech, confusion, disequilibrium, dizziness, focal weakness, headache(s), numbness, paresthesias, seizure-like activity, seizures, syncope, tingling, tremor(s) or other Psychiatric Psychiatric: Denies anxiety, depression, homicidal ideation, suicidal ideation or other Endocrine Endocrinology: Denies change in body appearance, cold intolerance, excessive sweating, heat intolerance, polydipsia, polyuria or other Hematologic/Lymphatic Hematologic/Lymphatic: Denies anemia, easy bleeding, easy bruising, lymphadenopathy or other Allergic/Immunologic Allergic/Immunologic: Denies rhinitis, hives, eczemia, asthma or other Vital Signs Vital Signs Vital Signs: 06/24/25 13:46 06/24/25 14:46 06/24/25 14:55 Temperature 98.3 F Temperature Source Oral Pulse Rate 90 Respiratory Rate 16 Blood Pressure 182/149 H 136/110 H Blood Pressure Mean 160 118 Pulse Ox 98 Oxygen Delivery Method Room Air Room Air 06/24/25 15:00 06/24/25 16:00 06/24/25 18:07 Temperature Temperature Source Pulse Rate 105 H 131 H 135 H Respiratory Rate 18 18 Blood Pressure 154/112 H 154/112 H 168/124 H Blood Pressure Mean 126 126 138 Pulse Ox 91 96 Oxygen Delivery Method Room Air Weight Weight: 104.2 kg Body Mass Index (BMI) 32.9 Physical Exam Const alert, oriented x3 and well nourished; Negative for average body habitus or healthy appearing Constitutional Narrative: Overweight, tremulous, middle-aged, white male, walking around room putting his gown on, appears slightly confused but cooperative, does not appear toxic, does look older than stated age General Appearance: cooperative HEENT normocephalic, head/scalp atraumatic, hearing grossly normal bilaterally and moist oral mucous membranes HEENT Narrative: Mallampati 2-3, no thrush Resp normal respiratory effort, no retractions, no use of accessory muscles and clearto auscultation bilaterally Auscultation: Negative for rales, rhonchi or wheezes Cardio regular rhythm, S1 normal heart sound, S2 normal heart sound, no murmurs, no rub, no gallops and noclicks; Negative for regular rate Cardio Narrative: Tachycardic GI normal to inspection, nondistended, normoactive bowel sounds and soft to palpation GI Narrative: Mild tenderness in epigastrium, no rebound Extremity no clubbing, cyanosis or edema Extremity Narrative: 2+ pedal pulses Neuro moves all extremities and no focal motor deficits Neuro Narrative: Mild tremor, ambulates independently, speech is slightly slurred due to intoxication Psych affect normal Psych Narrative: Thankful for treatment, interacts appropriately Results Lab / Micro Data 06/24/25 14:10 06/24/25 14:30 Labs: Laboratory Results - last 24 hr 06/24/25 14:10: WBC 13.8 H, RBC 3.68 L, Hgb 13.2, Hct 38.0 L, MCV 103.3 H, MCH 35.9 H, MCHC 34.7, RDW Std Deviation 55.8 H, RDW Coeff of Brodie 14.7 H, Plt Count 302, MPV 11.0, Immature Gran % (Auto) 0.900, Neut % (Auto) 79.1 H, Lymph % (Auto) 12.7 L, Iroquois % (Auto) 6.4, Eos % (Auto) 0.3, Baso % (Auto)0.6, Absolute Neuts (auto) 10.9 H, Absolute Lymphs (auto) 1.75, Nucleated RBC % 0 06/24/25 14:30: Sodium 134, Potassium 3.4, Chloride 97 L, Carbon Dioxide 21.4, Anion Gap 16 H, BUN 7, Creatinine 0.52 L, Estim Creat Clear Calc 228.31, Est GFR (MDRD) Non-Af 131, BUN/Creatinine Ratio12.6, Glucose 110 H, Calcium 7.7, Troponin T High Sens < 6 06/24/25 15:42: PT 15.5 H, INR 1.2, APTT 32.8, Total Bilirubin 6.46 H, Direct Bilirubin 5.04 H, AYP017 H, ALT 36, Alkaline Phosphatase 778 H, NT pro BNP II <36, Total Protein 6.5, Albumin 2.5 L, Globulin 4.0, Lipase 117 H 06/24/25 16:28: Troponin T Hi Sens 2 Hr 7 06/24/25 : Ethyl Alcohol 319.0 H* Imaging Radiology Impression Chest X-Ray 06/24/25 14:45 IMPRESSION: No focal consolidation. Reading Location: [facility] Abdomen/Pelvis CT 06/24/25 15:10 IMPRESSION: Extensive hepatic steatosis and question cirrhosis. Hepatomegaly. Moderate ascites. Acute hepatitisis not entirely excluded. Gallbladder wall is thickened which may be reactive to adjacent inflamed hepatictissue. Scattered mild thickening of the small bowel wall which may reflect enteritis. Small hiatal hernia. Reading Location: [facility] Gallbladder Ultrasound 06/24/25 16:27 IMPRESSION: Hepatomegaly and hepatic steatosis. Question nodular liver contour which may reflect cirrhosis. Nonspecific dilation of the CBD. Ascites noted. No acute cholecystitis. Reading Location: [facility] Assessment & Plan Assessment/Plan (1) Admitted to alcohol detoxification center: (2) Alcohol abuse: (3) Alcoholic hepatitis: (4) Leukocytosis: (5) Tachycardia: PLAN: Plan Alcohol abuse with pending alcohol withdrawal - Patient drinks a gallon of vodka every 2 days - Has never been through alcohol detoxification previously - Phenobarbital taper as ordered - As needed Ativan with CIWA - Supportive medications for symptoms related alcohol withdrawal - Start thiamine and folate - 180 consultation for assistance with discharge planning - case management/social work consultation for assistance with discharge planning Alcoholic hepatitis/cirrhosis - Patient with markedly elevated LFTs and bilirubin - Maddrey score is 24 so not a candidate for steroids - Patient does have moderate ascites and may need to start diuretic once he is more clinically stable - Could consider nadolol as well - Suggest referral to GI after discharge Leukocytosis - Suspect reactive - No signs of infection - Monitor clinically with repeat lab in a.m. Tachycardia - Related to alcohol withdrawal - Monitor History of cocaine abuse - Patient denies any ongoing use since he has gone through rehab DVT prophylaxis - Low risk - Encourage frequent and early ambulation CODE STATUS - Full code Charges/Coding Visit Charges Inpatient E&M: 64881 Init Hosp L2 06/24/252110 Cosigner Signature (if applicable): CC: Dr. Sasha Alegre, DO; No Primary Care Physician~ Signed [facility]10-13-2025 Evaluation note* Diagnosis Onset Date Resolution Status Admit Date Admitted to alcohol detoxification center acute June 242024 6:48pm Alcohol abuse acute June 6:48pm Alcoholic hepatitis acute Octob er 2024 6:48pm Leukocytosis acute June 6:48pm Tachycardia acute June 24, 2025 6:48pm [facility] Work Phone: 1(570) 942-265010-13-2025 Discharge summary Author Mike Cisneros-Randall [facility] Note Date/Time June 24, 2025 6 :44pm [facility] Medical Records Department [address] [place] [address] Emergency Department Summary 06/24/25 MR#: [id number] Acct: [id number] Name: YUDI MCGOWAN Rep #:[id number] : 1985 39 From: Mike barahona DO PCP: Care Physician,No Primary Status :REG ER Location: ED ADDENDUM by Dr. Glenroy Whalen DO on 06/24/25 at 1844 Care of the patient was turned over to me pending gallbladder ultrasound. This was obtained. There is no evidence of acute cholecystitis. There is no evidence of choledocholithiasis. Case was discussed with the hospitalist. She will admit the patient to her service. Patient understood and was agreeable with the plan. All questions were answered. 06/24/25 1844<Electronically signed by Glenroy Whalen DO> Cosigner Signature (if applicable): cc: No Primary Care Physician ~* Signed HPI History of Present Illness Chief Complaint: Substance Abuse Narrative Narrative: Chief complaint and HPI: 39-year-old male with past medical history of alcohol abuse presents for evaluation for detox as well as multiple other complaints. Patient states he drinks about a half a gallon of liquor a day, vodka. Last drink was before EMS arrival. Patient states for the past several days he has been having episodic chest pain, shortness of breath, epigastric abdominal pain.Friend in the room states that his eyes have been yellow for the past several days. Patient denies any history of cirrhosis. He feels that his abdomen is bloated. He denies any fever, chills, nausea, vomiting, dysuria. Review of systems: See HPI Medications: As listed on the chart Allergies: As listed on the chart PFSH: Per chart Vital signs: As listed on the chart. Reviewed. Physical exam: Gen: Alert and oriented but intoxicated, anxious Head: Normocephalic, atraumatic Eyes: Jaundice, PERRL, EOMI ENT: Dry mucous membranes Neck: Trachea midline CV: Tachycardic, regular rhythm, no murmurs Resp: Lungs CTA BL, no w/r/c GI: Abd soft, mildly distended, tender to palpation in the epigastrium and rightupper quadrant, no r/r Musc: Full ROM, no deformity Skin: Warm, dry, jaundice Neuro: Alert, oriented, grossly intact, sensation intact Psych: Cooperative, anxious, intoxicated [facility] Medical History (Updated 06/24/25 @ 14:32 by Guera Elizabeth) Substance abuse Alcohol abuse Irregular heart beat Home Medications ?Medication ?Instructions ?Recorded ?Last Taken ?Type NK 06/24/25 Unknown History Allergy/AdvReac Type Severity Reaction Status Date / Time No Known Allergies Allergy Verified 06/24/25 13:50 Social History Smoking Status: Former smoker EXAM Physical Exam Const Vital Signs: 06/24/25 13:46 06/24/25 14:46 06/24/25 14:55 Temperature 98.3 F Temperature Source Oral Pulse Rate 90 Respiratory Rate 16 Blood Pressure 182/149 H 136/110 H Blood Pressure Mean 160 118 Pulse Ox 98 Oxygen Delivery Method Room Air Room Air 06/24/25 15:00 06/24/25 16:00 Temperature Temperature Source Pulse Rate 105 H 131 H Respiratory Rate 18 Blood Pressure 154/112 H 154/112 H Blood Pressure Mean 126 126 Pulse Ox 91 Oxygen Delivery Method MDM MDM MDM Narrative Medical decision making narrative: 39-year-old male with past medical history of alcohol abuse presents for evaluation for detox as well as multiple other complaints. Patient states he drinks about a half a gallon of liquor a day, vodka. Last drink was before EMS arrival. Patient states for the past several days he has been having episodic chest pain, shortness of breath, epigastric abdominal pain. On presentation, patient is intoxicated and anxious. He is tachycardic and jaundice. Differential diagnosis includes but is not limited to alcohol intoxication, cirrhosis, pancreatitis, electrolyte abnormality, dehydration CHF, ACS. NS bolus, Ativan ordered for symptoms. Laboratory workup ordered including CT abdomen and pelvis. CBC with mild leukocytosis of 13.8. No anemia. Platelets unremarkable. BMP shows dehydration with mild anion gap of 16. Likely secondary to alcoholic ketosis. No GABBY. Alcohol level 319. CT abdomen pelvis shows extensive hepatic steatosis and question cirrhosis. Hepatomegaly. Moderate ascites. Acute hepatitis is not entirely excluded. Gallbladder wall is thickened which may be reactive to adjacent inflamed hepatic tissue. Scattered mild thickening of the small bowel wall which may reflect enteritis. Small hiatal hernia. INR normal. Lipase elevated at 117. No pancreatitis seen on CT abdomen pelvis. CMP shows hyperbilirubinemia with a bilirubin of 6.46. Direct bilirubin of 5.04. AST transaminitis of 251. Transaminitis is consistent with alcoholic transaminitis. Given elevation in direct bilirubin, ultrasound of the gallbladder ordered to assess for choledocholithiasis. Alkaline phosphatase elevated at 778. BNP unremarkable. Troponin unremarkable. Ultrasound of the gallbladder pending at this time. Patient signed out to oncoming physician. Plan will be for admission once ultrasound has resulted. EKG: Interpreted by me/EM physician: EKG shows sinus tachycardia with a heart rate of133. Nonspecific ST changes. Diagnostic: Interpreted by me/EM physician: Chest x-ray doubt pneumonia, effusion, cardiomegaly, pneumothorax Impression: 1. Alcohol abuse with alcohol intoxication 2. Alcohol abuse requesting alcohol detox 3. Hyperbilirubinemia 4. Alcoholic transaminitis 5. Alcoholic ketosis Lab Data Labs: Laboratory Results - last 24 hr 06/24/25 06/24/25 06/24/25 14:10 14:30 15:42 WBC 13.8 H RBC 3.68 L Hgb 13.2 Hct 38.0 L MCV 103.3 H MCH 35.9 H MCHC 34.7 RDW Std Deviation 55.8 H RDW Coeff of Brodie 14.7 H Plt Count 302 MPV 11.0 Immature Gran % (Auto) 0.900 Neut % (Auto) 79.1 H Lymph % (Auto) 12.7 L Iroquois % (Auto) 6.4 Eos % (Auto) 0.3 Baso % (Auto) 0.6 Absolute Neuts (auto) 10.9 H Absolute Lymphs (auto) 1.75 Nucleated RBC % 0 PT 15.5 H INR 1.2 APTT 32.8 Sodium 134 Potassium 3.4 Chloride 97 L Carbon Dioxide 21.4 Anion Gap 16 H BUN 7 Creatinine 0.52 L Estim Creat Clear Calc 228.31 Est GFR (MDRD) Non-Af 131 BUN/Creatinine Ratio 12.6 Glucose 110 H Calcium 7.7 Total Bilirubin 6.46 H Direct Bilirubin 5.04 H AST 251 H ALT 36 Alkaline Phosphatase 778 H Troponin T High Sens < 6 Troponin T Hi Sens 2 Hr NT pro BNP II < 36 Total Protein 6.5 Albumin 2.5 L Globulin 4.0 Lipase 117 H Ethyl Alcohol 06/24/25 06/24/25 16:28 Unknown WBC RBC Hgb Hct MCV MCH MCHC RDW Std Deviation RDW Coeff of Brodie Plt Count MPV Immature Gran % (Auto) Neut % (Auto) Lymph % (Auto) Iroquois % (Auto) Eos % (Auto) Baso % (Auto) Absolute Neuts (auto) Absolute Lymphs (auto) Nucleated RBC % PT INR APTT Sodium Potassium Chloride Carbon Dioxide Anion Gap BUN Creatinine Estim Creat Clear Calc Est GFR (MDRD) Non-Af BUN/Creatinine Ratio Glucose Calcium Total Bilirubin Direct Bilirubin AST ALT Alkaline Phosphatase Troponin T High Sens Troponin T Hi Sens 2 Hr 7 NT pro BNP II Total Protein Albumin Globulin Lipase Ethyl Alcohol 319.0 H* Radiography Diagnostic Testing: Clinical Impression(s) from Imaging Studies Chest X-Ray 06/24/25 14:45 IMPRESSION: No focal consolidation. Reading Location: [facility] Abdomen/Pelvis CT 06/24/25 15:10 IMPRESSION: Extensive hepatic steatosis and question cirrhosis. Hepatomegaly. Moderate ascites. Acute hepatitis is not entirely excluded. Gallbladder wall is thickened which may be reactive to adjacent inflamed hepatictissue. Scattered mild thickening of the small bowel wall which may reflect enteritis. Small hiatal hernia. Reading Location: [facility] Discharge Plan Triage Chief Complaint: Substance Abuse ED Provider: Mike Laird Dx/Rx/DC Orders Prescriptions: No Action NK Primary Care Provider: Care Physician,No Primary Referrals: Care Physician,No Primary [Primary Care Provider, Medical] Print Language: Ethiopian What to do if you have Problems For any increased pain, shortness of breath, bleeding, nausea or vomiting, chestpain, or any unexpected problems, contact your Primary Care Provider. Call [facility] ([phone]) or report to the closest Emergency Room. Call 911 if necessary. 06/24/25 1732 <Electronically signed by Mike Laird DO> Cosigner Signature (if applicable): CC: No Primary Care Physician ~ Signed [facility] Work Phone: 1(828) 789-565410-13-2025 Discharge summary [facility] Medical Records Department [address] [place] [address] Emergency Department Summary 06/24/25 MR#: [id number] Acct: [id number] Name: YUDI MCGOWAN Rep #:[id number] : 1985 39 From: Mike barahona DO PCP: Care Physician,No Primary Status :REG ER Location: ED ADDENDUM by Dr. Glenroy Whalen DO on 06/24/25 at 1844 Care of the patient was turned over to me pending gallbladder ultrasound. This was obtained. There is no evidence of acute cholecystitis. There is no evidence of choledocholithiasis. Case was discussed with the hospitalist. She will admit the patient to her service. Patient understood and was agreeable with the plan. All questions were answered. 06/24/25 1844 Cosigner Signature (if applicable): cc: No Primary Care Physician ~* Signed HPI History of Present Illness Chief Complaint: Substance Abuse Narrative Narrative: Chief complaint and HPI: 39-year-old male with past medical history of alcohol abuse presents for evaluation for detox as well as multiple other complaints. Patient states he drinks about a half a gallon of liquor a day, vodka. Last drink was before EMS arrival. Patient states for the past several days he has been having episodic chest pain, shortness of breath, epigastric abdominal pain.Friend in the room states that his eyes have been yellow for the past several days. Patient denies any history of cirrhosis. He feels that his abdomen is bloated. He denies any fever, chills, nausea, vomiting, dysuria. Review of systems: See HPI Medications: As listed on the chart Allergies: As listed on the chart PFSH: Per chart Vital signs: As listed on the chart. Reviewed. Physical exam: Gen: Alert and oriented but intoxicated, anxious Head: Normocephalic, atraumatic Eyes: Jaundice, PERRL, EOMI ENT: Dry mucous membranes Neck: Trachea midline CV: Tachycardic, regular rhythm, no murmurs Resp: Lungs CTA BL, no w/r/c GI: Abd soft, mildly distended, tender to palpation in the epigastrium and rightupper quadrant, no r/r Musc: Full ROM, no deformity Skin: Warm, dry, jaundice Neuro: Alert, oriented, grossly intact, sensation intact Psych: Cooperative, anxious, intoxicated [facility] Medical History (Updated 06/24/25 @ 14:32 by Guera Elizabeth) Substance abuse Alcohol abuse Irregular heart beat Home Medications ?Medication ?Instructions ?Recorded ?Last Taken ?Type NK 06/24/25 Unknown History Allergy/AdvReac Type Severity Reaction Status Date / Time No Known Allergies Allergy Verified 06/24/25 13:50 Social History Smoking Status: Former smoker EXAM Physical Exam Const Vital Signs: 06/24/25 13:46 06/24/25 14:46 06/24/25 14:55 Temperature 98.3 F Temperature Source Oral Pulse Rate 90 Respiratory Rate 16 Blood Pressure 182/149 H 136/110 H Blood Pressure Mean 160 118 Pulse Ox 98 Oxygen Delivery Method Room Air Room Air 06/24/25 15:00 06/24/25 16:00 Temperature Temperature Source Pulse Rate 105 H 131 H Respiratory Rate 18 Blood Pressure 154/112 H 154/112 H Blood Pressure Mean 126 126 Pulse Ox 91 Oxygen Delivery Method MDM MDM MDM Narrative Medical decision making narrative: 39-year-old male with past medical history of alcohol abuse presents for evaluation for detox as well as multiple other complaints. Patient states he drinks about a half a gallon of liquor a day, vodka. Last drink was before EMS arrival. Patient states for the past several days he has been having episodic chest pain, shortness of breath, epigastric abdominal pain. On presentation, patient is intoxicated and anxious. He is tachycardic and jaundice. Differential diagnosis includes but is not limited to alcohol intoxication, cirrhosis, pancreatitis, electrolyte abnormality, dehydration CHF, ACS.NS bolus, Ativan ordered for symptoms. Laboratory workup ordered including CT abdomen and pelvis. CBC with mild leukocytosis of 13.8. No anemia. Platelets unremarkable. BMP shows dehydration with mild anion gap of 16. Likely secondary to alcoholic ketosis. No GABBY. Alcohol level 319. CT abdomen pelvis shows extensive hepatic steatosis and question cirrhosis. Hepatomegaly. Moderate ascites. Acute hepatitis is not entirely excluded. Gallbladder wall is thickened which may be reactive to adjacent inflamed hepatic tissue. Scattered mild thickening of the small bowel wall which may reflect enteritis. Small hiatal hernia. INR normal. Lipase elevated at 117. No pancreatitis seen on CT abdomen pelvis. CMP shows hyperbilirubinemia with a bilirubin of 6.46. Direct bilirubin of 5.04. AST transaminitis of 251. Transaminitis is consistent with alcoholic transaminitis. Given elevation in direct bilirubin, ultrasound of the gallbladder ordered to assess for choledocholithiasis. Alkaline phosphatase elevated at 778. BNP unremarkable. Troponin unremarkable. Ultrasound of the gallbladder pending at this time. Patient signed out to oncoming physician. Plan will be for admission once ultrasound has resulted. EKG: Interpreted by me/EM physician: EKG shows sinus tachycardia with a heart rate of133. Nonspecific STchanges. Diagnostic: Interpreted by me/EM physician: Chest x-ray doubt pneumonia, effusion, cardiomegaly, pneumothorax Impression: 1. Alcohol abuse with alcohol intoxication 2. Alcohol abuse requesting alcohol detox 3. Hyperbilirubinemia 4. Alcoholic transaminitis 5. Alcoholic ketosis Lab Data Labs: Laboratory Results - last 24 hr 06/24/25 06/24/25 06/24/25 14:10 14:30 15:42 WBC 13.8 H RBC 3.68 L Hgb 13.2 Hct 38.0 L MCV 103.3 H MCH 35.9 H MCHC 34.7 RDW Std Deviation 55.8 H RDW Coeff of Brodie 14.7 H Plt Count 302 MPV 11.0 Immature Gran % (Auto) 0.900 Neut % (Auto) 79.1 H Lymph % (Auto) 12.7 L Iroquois % (Auto) 6.4 Eos % (Auto) 0.3 Baso % (Auto) 0.6 Absolute Neuts (auto) 10.9 H Absolute Lymphs (auto) 1.75 Nucleated RBC % 0 PT 15.5 H INR 1.2 APTT 32.8 Sodium 134 Potassium 3.4 Chloride 97 L Carbon Dioxide 21.4 Anion Gap 16 H BUN 7 Creatinine 0.52 L Estim Creat Clear Calc 228.31 Est GFR (MDRD) Non-Af 131 BUN/Creatinine Ratio 12.6 Glucose 110 H Calcium 7.7 Total Bilirubin 6.46 H Direct Bilirubin 5.04 H AST 251 H ALT 36 Alkaline Phosphatase 778 H Troponin T High Sens < 6 Troponin T Hi Sens 2 Hr NT pro BNP II < 36 Total Protein 6.5 Albumin 2.5 L Globulin 4.0 Lipase 117 H Ethyl Alcohol 06/24/25 06/24/25 16:28 Unknown WBC RBC Hgb Hct MCV MCH MCHC RDW Std Deviation RDW Coeff of Brodie Plt Count MPV Immature Gran % (Auto) Neut % (Auto) Lymph % (Auto) Iroquois % (Auto) Eos % (Auto) Baso % (Auto) Absolute Neuts (auto) Absolute Lymphs (auto) Nucleated RBC % PT INR APTT Sodium Potassium Chloride Carbon Dioxide Anion Gap BUN Creatinine Estim Creat Clear Calc Est GFR (MDRD) Non-Af BUN/Creatinine Ratio Glucose Calcium Total Bilirubin Direct Bilirubin AST ALT Alkaline Phosphatase Troponin T High Sens Troponin T Hi Sens 2 Hr 7 NT pro BNP II Total Protein Albumin Globulin Lipase Ethyl Alcohol 319.0 H* Radiography Diagnostic Testing: Clinical Impression(s) from Imaging Studies Chest X-Ray 06/24/25 14:45 IMPRESSION: No focal consolidation. Reading Location: [facility] Abdomen/Pelvis CT 06/24/25 15:10 IMPRESSION: Extensive hepatic steatosis and question cirrhosis. Hepatomegaly. Moderate ascites. Acute hepatitisis not entirely excluded. Gallbladder wall is thickened which may be reactive to adjacent inflamed hepatictissue. Scattered mild thickening of the small bowel wall which may reflect enteritis. Small hiatal hernia. Reading Location: [facility] Discharge Plan Triage Chief Complaint: Substance Abuse ED Provider: Mike Laird Dx/Rx/DC Orders Prescriptions: No Action NK Primary Care Provider: Care Physician,No Primary Referrals: Care Physician,No Primary [Primary Care Provider, Medical] Print Language: Ethiopian What to do if you have Problems For any increased pain, shortness of breath, bleeding, nausea or vomiting, chestpain, or any unexpected problems, contact your Primary Care Provider. Call [facility] ([phone]) or report tothe closest Emergency Room. Call 911 if necessary. 06/24/25 1732 Cosigner Signature (if applicable): CC: No Primary Care Physician ~ Signed [facility]10-13-2025 Radiology Diagnostic study note [facility] Imaging Services [address] [place], [place] [id number] Gallbladder MR#: [id number] Acct: [id number] Name: YUDI MCGOWAN Rep #: [id number] : 1985 M 39 From: Rosalba Nguyen MD PCP: Care Physician,No Primary Status: REG ER Study:Gallbladder Date of Exam: 06/24/25 Exam# [id number] Ordering Dr: Mike Cleveland DO PROCEDURE: GALLBLADDER 06/24/2025 REASON FOR EXAM: HYPERBILIRUBINEMIA COMPARISON: Same day CT on 06/24/2025 FINDINGS: GALLBLADDER: No gallstones. Gallbladder sludge noted. Mild thickening of the gallbladder to 3.6 mm.No pericholecystic fluid. Negative Draper sign. Question nodular liver contour. COMMON BILE DUCT: Measures 10.2 Mm. No intrahepatic biliary dilatation. LIVER: Enlarged to 19.9 cm. Increased echogenicity. No definite hepatic mass. RIGHT KIDNEY: Normal in size and echogenicity. No mass. No urinary stones. No hydronephrosis. Pancreas: Not well visualized. Ascites noted. US/Gallbladder IMPRESSION: Hepatomegaly and hepatic steatosis. Question nodular liver contour which may reflect cirrhosis. Nonspecific dilation of the CBD. Ascites noted. No acute cholecystitis. Reading Location: [facility] CC: Dr. Mike Laird DO; No Primary Care Physician ~ Sales Data Analyst: Signed [facility]10-13-2025 Radiology Diagnostic study note [facility] Imaging Services [address] [place] [address] Abdomen/Pelvis W IV Cont ONLY MR#: [id number] Acct: [id number] Name: YUDI MCGOWAN Rep #: [id number] : 1985 M 39 From: Rosalba Nguyen MD PCP: Care Physician,No Primary Status: REG ER Study:Abdomen/Pelvis W IV Cont ONLY Date of E xam: 06/24/25 Exam# [id number] Ordering Dr: Mike Cleveland DO PROCEDURE: ABDOMEN/PELVIS W IV CONT ONLY 06/24/2025 REASON FOR EXAM: ABDOMINAL PAIN TECHNIQUE: Procedure Code: [id number] Modality: CT Procedure: ABDOMEN/PELVIS W IV CONT ONLY Coronal and Sagittal reconstruction series were provided. CONTRAST: 100 mL of Isovue 370 One or more dose reduction techniques were used (e.g., Automated exposure control, adjustment of the mA and/or kV according to patient size, use of iterative reconstruction technique. RADIATION DOSE SUMMARY: DLP: 1110 mGycm COMPARISON: None FINDINGS: Limited sections of the lung bases demonstrate no focal pulmonary mass or consolidations. Right base subsegmental atelectasis. The spleen, pancreas, and both adrenal glands demonstrate no acute findings. Hepatic steatosis withnodular liver contour which may reflect cirrhosis. Hepatomegaly to 20.8 cm. Gallbladder wall is thickened which may be reactive to adjacent inflamed hepatictissue. Small hiatal hernia; otherwise stomach is unremarkable. Scattered mild thickening of the small bowel wall which may reflect enteritis. The appendix is not clearly identified, although there are no secondary signs ofappendicitis. No colonic obstruction. Moderate ascites. No free fluid. 1.1 x 1.0 cm cyst within the left kidney. The right kidney is unremarkable. Nohydronephrosis. The urinary bladder is partially distended. The pelvic structures are intact. There is no solid pelvic mass. No significant lymphadenopathy. The aorta and IVC demonstrate no acute findings. Mild atherosclerosis of the abdominal vasculature. Visualized osseous structures demonstrate no acute abnormality. CT/Abdomen/Pelvis W IV Cont ONLY IMPRESSION: Extensive hepatic steatosis and question cirrhosis. Hepatomegaly. Moderate ascites. Acute hepatitisis not entirely excluded. Gallbladder wall is thickened which may be reactive to adjacent inflamed hepatictissue. Scattered mild thickening of the small bowel wall which may reflect enteritis. Small hiatal hernia. Reading Location: [facility] CC: Dr. Mike Laird DO; No Primary Care Physician ~ Sales Data Analyst: Signed [facility]10-13-2025 Radiology Diagnostic study note [facility] Imaging Services [address] [address] Chest PA and Lateral MR#: [id number] Acct: [id number] Name: YUDI MCGOWAN Rep #: [id number] : 1985 M 39 From: Rosalba Nguyen MD PCP: Status: PRE ER Study:Chest PA and Lateral Date of Exam: 06/24/25 Exam# [id number] Ordering Dr: Mike Cleveland DO PROCEDURE: CHEST PA AND LATERAL 06/24/2025 REASON FOR EXAM: CHEST PAIN TECHNIQUE: Procedure Code: RADCXR Modality: DX Procedure: CHEST PA AND LATERAL COMPARISON: None FINDINGS: No focal consolidation. No pleural effusion or pneumothorax. Cardiac silhouette is within normal limits. No acute fractures. RAD/Chest PA and Lateral IMPRESSION: No focal consolidation. Reading Location: [id number] CC: Dr. Mike CisnerosRandall, DO ~ Sales Data Analyst: Signed [facility] [address] [place] [address] Discharge Summary 06/27/25 1416 MR#: [id number] Acct: [id number] Name: YUDI MCGOWAN Rep #:[id number] : 1985 39 From: J Carlos heller MD PCP: Care Physician,No Primary Status :DIS IN Location: [place] [address] Providers Date of Admission: 06/24/25 Primary Care Physician: No Primary Care Phys Reason For Visit: ETOH DETOX Diagnosis Discharge Diagnosis (1) Alcohol abuse: Status: Acute Code(s): F10.10 - Alcohol abuse, uncomplicated Medications at Discharge Home Medications NK 06/24/25 Hospital Course Operations None Procedures None Summary of Care Provided Minutes Spent on Discharge: 39 Hospital Course: Per HPI: YUDI MCGOWAN, is a 39 M who presented to the emergency department at [facility] 06/24/2025 requesting detox from alcohol. Patient states he has been drinking heavily for thelast 2 years. He states he drink intermittently before and he has had substance abuse problems previously with cocaine and went through a stent and inpatient rehab for that forced by his parents to be able to come back to work. He stated within the last 2 years he has been heavily drinking at leasta half a gallon of vodka every 2 days. His last drink was just prior to presentation. He has never been through alcohol detox previously. He has never had seizure. He is currently unemployed. Vital signs on presentation showed temperature 98, heart rate 105, blood pressure 136/110, respiratory was 18 and pulse ox was 91 to 96% on room air. CBC shows a leukocytosis with a white count of 13.8 and a left shift with a 79.1% neutrophilia. Coags show a mildly elevated PTT at 15.5. Chemistry panel shows normal renal function electrolytes however he has markedly abnormal liver functions with a total bilirubin of 6.46, direct bilirubin of 5.04 and an AST of251. His alk phos is 778. Troponin is negative x 3. proBNP is 36 and lipase was 117. Ethyl alcohol level was 319. EKG shows sinus tachycardia. Chest x-ray shows no focal consolidation. CT of the abdomen pelvis showed extensive hepatosteatosis with questionable cirrhosis, hepatomegaly, moderate ascites, thickening of the gallbladder wall, mild thickening of the small bowel and smallhiatal hernia. Gallbladder ultrasound showed nonspecific dilation of the commonbile duct with ascites and no acute cholecystitis, liver contour was sugg estive of cirrhosis. Patient will be admitted to general medical floor for what is to be expected greater than 2 midnights for alcohol detox. Hospital Course: 1. Alcohol abuse requesting detox with alcoholic hepatitis and reactive leukocytosis?39-year-old male presented to the hospital requesting detox from alcohol. He states that he been drinking heavily for the last 2 years and that he had been drinking approximately half gallon of vodka every 2 days. He is never had a seizure with alcohol withdrawal and his last drink was just prior tobeing admitted. Unfortunately upon admission he refused to be part of the rehabprogram and in discussions he did not want to pursue either inpatient rehab or outpatient rehab. He wants to try to do it on his own. It was noted that he had elevated LFTs consistent with alcoholic hepatitis though the Madrey score was not significant enough to start him on steroids. It was discussed with him the severity of his illness but he did not seem to be too interested. CT of theabdomen and pelvis did show extensive hepatosteatosis with possible cirrhosis and moderate ascites. Over the last 2 days I had extensive discussions with himabout the severity of his illness and the need to follow-up with gastroenterology, he does not want to, he thinks that he will be fine on his ownand that he will be able to quit drinking and that will improve everything. We did discuss that quitting drinking will significantly help his situation but I highlighted to him that he may need significant help in this process which he denies. Unfortunately he has capacity to make his decisions and he requested milvia discharged today I discussed with him the possibility of discharge and he expressed understanding of the risks and benefits of going home and would like to go home today. He did verbalize that he will quit drinking because he understands that if he continues drinking it could kill him. I recommend that he follow-up with his PCP and I recommend that he follow-up with gastroenterology as well. Physical Exam Narrative General: Alert, Oriented x3, Cooperative, mild restlessness HEENT: Atraumatic, PERRLA, EOMI, Normocephalic Oral: Moist Mucosa Neck: Supple, No JVD Lungs: Clear to auscultation, Normal air movement, No rhonchi, No wheeze, No rales Cardiovascular: Regular rate, Regular Rhythm, Normal S1, Normal S2, No murmurs Abdomen: Soft, Non Tender, Non-Distended, No Hepato-splenomegaly Extremities: No edema, Capillary Refill Less than 3 Seconds Skin: No rashes, No breakdown Musculoskeletal: No Tenderness to Palpation of Joints or Extremities Neurological: No focal neurological deficits, moves all extremities, slight tremors Psych/Mental Status: Anxious and a little flat Weight / BMI Weight Weight: 208 lb 15.971 oz Body Mass Index (BMI) 29.9 ABG / Lab / Microbiology Data 06/25/25 06:25 06/27/25 05:32 Laboratory: Laboratory Results - last 24 hr 06/27/25 05:32: Sodium 132 L, Potassium 3.3, Chloride 97 L, Carbon Dioxide 23.5,Anion Gap 12, BUN 7, Creatinine 0.66 L, Estim Creat Clear Calc 171.97, Est GFR (MDRD) Non-Af 121, BUN/Creatinine Ratio 11.1, Glucose 96, Calcium 8.0, Total Bilirubin 8.69 H, AST 232 H, ALT 29, Alkaline Phosphatase 735 H, Total Protein 6.5, Albumin 2.5 L, Globulin 4.0, Albumin/Globulin Ratio 0.6 L D/C Instructions Call your doctor if you observe: Fever of 101 or Higher, Shortness of breath, Dizziness, Fainting spells, Swelling in the ankles, Chest pain and Increased palpitations (irregular heartbeat) DC O2, CPAP, BIPAP Needs Home O2 Discharge instructions: No Meaningful Use Info Meaningful Use Meaningful Use Diagnoses (Choose all that apply): None applicable Discharge Plan Admission Admit Date/Time: 06/24/25 18:48 Attending Provider: J Carlos Chamberlain Primary Care Provider: Care Physician,No Primary Consulting Providers: Sasha Alegre Discharge Orders/Prescriptions Prescriptions: No Action NK Referrals / Follow Up: Care Physician,No Primary [Primary Care Provider, Medical] Friend,Gabriel, DO [Med Staff - Active Staff, Gastroenterology] - Within 2 Weeks Disposition Disposition (needs filled in before D/C Order can be placed): Home, Self Care Charges/Coding Visit Charges Inpatient E&M: 87846 Disch Hosp >30min 06/27/25 1422 Cosigner Signature (if applicable): CC: Dr. J Carlos Chamberlain MD; No Primary Care Physician~ Signed [facility] Author J Carlos Chamberlain [facility] Note Date/Time June 27, 2025 1 0:39am [facility] Medical Records Department [address] [place] [address] Instructions for Home/Discharge Instructions 06/27/25 1038 MR#: [id number] Acct: [id number] Name: YUDI MCGOWAN Rep #:[id number] : 1985 39 From: J Carlos heller MD PCP: Care Physician,No Primary Status :ADM IN Discharge Instructions DC O2, CPAP, BIPAP needs Home O2 Discharge instructions: No Dressing / Incision Discharge Activity: Return to Normal Activity Dressing / Incision Call your doctor if you observe: Fever of 101 or Higher, Shortness of breath, Dizziness, Fainting spells, Swelling in the ankles, Chest pain and Increased palpitations (irregular heartbeat) Follow Up Care Test Results: Test results from this visit will be discussed in further detail at your follow- up appointment, if applicable. Discharge Plan Admission Admit Date/Time: 06/24/25 18:48 Attending Provider: J Carlos Chamberlain Primary Care Provider: Care Physician,No Primary Consulting Providers: Sasha Alegre Discharge Orders/Prescriptions Prescriptions: No Action NK Referrals / Follow Up: Care Physician,No Primary [Primary Care Provider, Medical] Disposition Disposition (needs filled in before D/C Order can be placed): Home, Self Care 06/27/25 1039<Electronically signed by J Carlos Chamberlain MD>J Carlos Chamberlain MD CC: Dr. Sasha Alegre, DO; No Primary Care Physician ~ Signed [facility] Work Phone: Discharge summary Author J Carlos Chamberlain [facility] Note Date/Time June 27, 2025 2 :22pm [facility] Medical Records Department [address] [place] [address] Discharge Summary 06/27/25 1416 MR#: [id number] Acct: [id number] Name: YUDI MCGOWAN Rep #:[id number] : 1985 39 From: J Carlos heller MD PCP: Care Physician,No Primary Status :DIS IN [id number] Providers Date of Admission: 06/24/25 Primary Care Physician: No Primary Care Phys Reason For Visit: ETOH DETOX Diagnosis Discharge Diagnosis (1) Alcohol abuse: Status: Acute Code(s): F10.10 - Alcohol abuse, uncomplicated Medications at Discharge Home Medications NK 06/24/25 Hospital Course Operations None Procedures None Summary of Care Provided Minutes Spent on Discharge: 39 Hospital Course: Per HPI: YUDI MCGOWAN, is a 39 M who presented to the emergency department at [facility] 06/24/2025 requesting detox from alcohol. Patient states he has been drinking heavily for the last 2 years. He states he drink intermittently before and he has had substance abuse problems previously with cocaine and went through a stent and inpatient rehab for that forced by his parents to be able to come back to work. He stated within the last 2 years he has been heavily drinking at least a half a gallon of vodka every 2 days. His last drink was just prior to presentation. He has never been through alcohol detox previously. He has never had seizure. He is currently unemployed. Vital signs on presentation showed temperature 98, heart rate 105, blood pressure 136/110, respiratory was 18 and pulse ox was 91 to 96% on room air. CBC shows a leukocytosis with a white count of 13.8 and a left shift with a 79.1% neutrophilia. Coags show a mildly elevated PTT at 15.5. Chemistry panel shows normal renal function electrolytes however he has markedly abnormal liver functions with a total bilirubin of 6.46, direct bilirubin of 5.04 and an AST of251. His alk phos is 778. Troponin is negative x 3. proBNP is 36 and lipase was 117. Ethyl alcohol level was 319. EKG shows sinus tachycardia. Chest x-ray shows no focal consolidation. CT of the abdomen pelvis showed extensive hepatosteatosis with questionable cirrhosis, hepatomegaly, moderate ascites, thickening of the gallbladder wall, mild thickening of the small bowel and smallhiatal hernia. Gallbladder ultrasound showed nonspecific dilation of the commonbile duct with ascites and no acute cholecystitis, liver contour was suggestive of cirrhosis. Patient will be admitted to general medical floor for what is to be expected greater than 2 midnights for alcohol detox. Hospital Course: 1. Alcohol abuse requesting detox with alcoholic hepatitis and reactive leukocytosis?39-year-old male presented to the hospital requesting detox from alcohol. He states that he been drinking heavily for the last 2 years and that he had been drinking approximately half gallon of vodka every 2 days. He is never had a seizure with alcohol withdrawal and his last drink was just prior tobeing admitted. Unfortunately upon admission he refused to be part of the rehabprogram and in discussions he did not want to pursue either inpatient rehab or outpatient rehab. He wants to try to do it on his own. It was noted that he had elevated LFTs consistent with alcoholic hepatitis though the Madrey score was not significant enough to start him on steroids. It was discussed with him the severity of his illness but he did not seem to be too interested. CT of theabdomen and pelvis did show extensive hepatosteatosis with possible cirrhosis and moderate ascites. Over the last 2 days I had extensive discussions with himabout the severity of his illness and the need to follow-up with gastroenterology, he does not want to, he thinks that he will be fine on his ownand that he will be able to quit drinking and that will improve everything. We did discuss that quitting drinking will significantly help his situation but I highlighted to him that he may need significant help in this process which he denies. Unfortunately he has capacity to make his decisions and he requested milvia discharged today I discussed with him the possibility of discharge and he expressed understanding of the risks and benefits of going home and would like to go home today. He did verbalize that he will quit drinking because he understands that if he continues drinking it could kill him. I recommend that he follow-up with his PCP and I recommend that he follow-up with gastroenterology as well. Physical Exam Narrative General: Alert, Oriented x3, Cooperative, mild restlessness HEENT: Atraumatic, PERRLA, EOMI, Normocephalic Oral: Moist Mucosa Neck: Supple, No JVD Lungs: Clear to auscultation, Normal air movement, No rhonchi, No wheeze, No rales Cardiovascular: Regular rate, Regular Rhythm, Normal S1, Normal S2, No murmurs Abdomen: Soft, Non Tender, Non-Distended, No Hepato-splenomegaly Extremities: No edema, Capillary Refill Less than 3 Seconds Skin: No rashes, No breakdown Musculoskeletal: No Tenderness to Palpation of Joints or Extremities Neurological: No focal neurological deficits, moves all extremities, slight tremors Psych/Mental Status: Anxious and a little flat Weight / BMI Weight Weight: 208 lb 15.971 oz Body Mass Index (BMI) 29.9 ABG / Lab / Microbiology Data 06/25/25 06:25 06/27/25 05:32 Laboratory: Laboratory Results - last 24 hr 06/27/25 05:32: Sodium 132 L, Potassium 3.3, Chloride 97 L, Carbon Dioxide 23.5,Anion Gap 12, BUN 7, Creatinine 0.66 L, Estim Creat Clear Calc 171.97, Est GFR (MDRD) Non-Af 121, BUN/Creatinine Ratio 11.1, Glucose 96, Calcium 8.0, Total Bilirubin 8.69 H, AST 232 H, ALT 29, Alkaline Phosphatase 735 H, Total Protein 6.5, Albumin 2.5 L, Globulin 4.0, Albumin/Globulin Ratio 0.6 L D/C Instructions Call your doctor if you observe: Fever of 101 or Higher, Shortness of breath, Dizziness, Fainting spells, Swelling in the ankles, Chest pain and Increased palpitations (irregular heartbeat) DC O2, CPAP, BIPAP Needs Home O2 Discharge instructions: No Meaningful Use Info Meaningful Use Meaningful Use Diagnoses (Choose all that apply): None applicable Discharge Plan Admission Admit Date/Time: 06/24/25 18:48 Attending Provider: J Carlos Chamberlain Primary Care Provider: Care Physician,No Primary Consulting Providers: Sasha Alegre Discharge Orders/Prescriptions Prescriptions: No Action NK Referrals / Follow Up: Care Physician,No Primary [Primary Care Provider, Medical] Friend,DO Gabriel [Med Staff - Active Staff, Gastroenterology] - Within 2 Weeks Disposition Disposition (needs filled in before D/C Order can be placed): Home, Self Care Charges/Coding Visit Charges Inpatient E&M: 61926 Disch Hosp >30min 06/27/25 1422 <Electronically signed by J Carlos Chamberlain MD> Cosigner Signature (if applicable): CC: Dr. J Carlos Chamberlain MD; No Primary Care Physician~ Signed [facility] Work Phone: Evaluation + Plan note No data available for this section [facility] Evaluation note* Diagnosis Onset Date Resolution Status Admit Date Admitted to alcohol detoxification center acute June 242024 6:48pm Alcohol abuse acute June 6:48pm Alcoholic hepatitis acute Octob er 2024 6:48pm Leukocytosis acute June 6:48pm Tachycardia acute June 24, 2025 6:48pm [facility] Work Phone: History and physical note Author Sasha Alegre [facility] Note Date/Time June 24, 2025 9 :11pm [facility] Medical Records Department [address] [place] [id number] H&P Exam - Hospitalist 06/24/25 1854 MR#: [id number] Acct: [id number] Name: YUDI MCGOWAN Rep #:[id number] : 1985 39 From: Sasha Alegre DO PCP: Care Physician,No Primary Status :ADM IN [place] [facility] [id number] HPI - General General Date of Admission: 06/24/25 Date of Service: 06/24/25 Chief Complaint: Alcohol detox HPI Narrative YUDI MCGOWAN, is a 39 M who presented to the emergency department at [facility] 06/24/2025 requesting detox from alcohol. Patient states he has been drinking heavily for the last 2 years. He states he drink intermittently before and he has had substance abuse problems previously with cocaine and went through a stent and inpatient rehab for that forced by his parents to be able to come back to work. He stated within the last 2 years he has been heavily drinking at least a half a gallon of vodka every 2 days. His last drink was just prior to presentation. He has never been through alcohol detox previously. He has never had seizure. He is currently unemployed. Vital signs on presentation showed temperature 98, heart rate 105, blood pressure 136/110, respiratory was 18 and pulse ox was 91 to 96% on room air. CBC shows a leukocytosis with a white count of 13.8 and a left shift with a 79.1% neutrophilia. Coags show a mildly elevated PTT at 15.5. Chemistry panel shows normal renal function electrolytes however he has markedly abnormal liver functions with a total bilirubin of 6.46, direct bilirubin of 5.04 and an AST of251. His alk phos is 778. Troponin is negative x 3. proBNP is 36 and lipase was 117. Ethyl alcohol level was 319. EKG shows sinus tachycardia. Chest x-ray shows no focal consolidation. CT of the abdomen pelvis showed extensive hepatosteatosis with questionable cirrhosis, hepatomegaly, moderate ascites, thickening of the gallbladder wall, mild thickening of the small bowel and smallhiatal hernia. Gallbladder ultrasound showed nonspecific dilation of the commonbile duct with ascites and no acute cholecystitis, liver contour was suggestive of cirrhosis. Patient will be admitted to general medical floor for what is to be expected greater than 2 midnights for alcohol detox. [facility] Medical History Anxiety Depression Hypertension GERD (gastroesophageal reflux disease) Substance abuse Alcohol abuse Irregular heart beat Home Medications ?Medication ?Instructions ?Recorded ?Last Taken ?Type NK 06/24/25 Unknown History Allergy/AdvReac Type Severity Reaction Status Date / Time No Known Allergies Allergy Verified 06/24/25 13:50 no significant family history no surgical history Social History (Updated 06/24/25 @ 21:[address] Sasha Alegre DO) Smoking Status: Former smoker alcohol intake: current alcohol intake frequency: other Alcohol type: hard liquor details: Patient drinks 1 gallon of vodka every 2 days substance use type: former substance user Date of last use: Cocaine ROS Constitutional Constitutional: Denies anorexia, change in weight, chills, fatigue, fever(s), malaise, night sweats, weakness or other Eyes Eyes: Denies blurry vision, change in eye color, change in vision, discharge from eye(s), double vision, erythema, eye pain, loss of vision or other ENT HEENT: Denies abnormal hearing, dysphagia, ear pain, epistaxis, headache(s), hearing loss, nasal congestion, nasal discharge, post nasal drip, sinus pressure, sore throat or other Cardiovascular Cardiovascular: Denies chest pain, claudication, dyspnea on exertion, edema, lightheadedness, orthopnea, palpitations, paroxysmal nocturnal dyspnea, rapid heart rate, syncope or other Respiratory/Chest Respiratory/Chest: Denies cough, dyspnea, excessive phlegm production, hemoptysis, productive cough, shortness of breath at rest, shortness of breath with exertion, wheezing or other Gastrointestinal Gastrointestinal: Reports abdominal pain and nausea; Denies coffee ground emesis, constipation, diarrhea, dyspepsia, hematemesis, hematochezia, loose stools, melena, vomiting or other Genitourinary Genitourinary: Denies burning urination, difficulty urinating, dysuria, hematuria, nocturia, urinary frequency, urinary hesitancy, urinary incontinence,urinary urgency or other Musculoskeletal Musculoskeletal: Denies arthralgias, back pain, joint pain, joint stiffness, joint swelling, myalgias, neck pain or other Neurologic Neurologic: Denies abnormal gait, abnormal speech, confusion, disequilibrium, dizziness, focal weakness, headache(s), numbness, paresthesias, seizure-like activity, seizures, syncope, tingling, tremor(s) or other Psychiatric Psychiatric: Denies anxiety, depression, homicidal ideation, suicidal ideation or other Endocrine Endocrinology: Denies change in body appearance, cold intolerance, excessive sweating, heat intolerance, polydipsia, polyuria or other Hematologic/Lymphatic Hematologic/Lymphatic: Denies anemia, easy bleeding, easy bruising, lymphadenopathy or other Allergic/Immunologic Allergic/Immunologic: Denies rhinitis, hives, eczemia, asthma or other Vital Signs Vital Signs Vital Signs: 06/24/25 13:46 06/24/25 14:46 06/24/25 14:55 Temperature 98.3 F Temperature Source Oral Pulse Rate 90 Respiratory Rate 16 Blood Pressure 182/149 H 136/110 H Blood Pressure Mean 160 118 Pulse Ox 98 Oxygen Delivery Method Room Air Room Air 06/24/25 15:00 06/24/25 16:00 06/24/25 18:07 Temperature Temperature Source Pulse Rate 105 H 131 H 135 H Respiratory Rate 18 18 Blood Pressure 154/112 H 154/112 H 168/124 H Blood Pressure Mean 126 126 138 Pulse Ox 91 96 Oxygen Delivery Method Room Air Weight Weight: 104.2 kg Body Mass Index (BMI) 32.9 Physical Exam Const alert, oriented x3 and well nourished; Negative for average body habitus or healthy appearing Constitutional Narrative: Overweight, tremulous, middle-aged, white male, walking around room putting his gown on, appears slightly confused but cooperative, does not appear toxic, does look older than stated age General Appearance: cooperative HEENT normocephalic, head/scalp atraumatic, hearing grossly normal bilaterally and moist oral mucous membranes HEENT Narrative: Mallampati 2-3, no thrush Resp normal respiratory effort, no retractions, no use of accessory muscles and clearto auscultation bilaterally Auscultation: Negative for rales, rhonchi or wheezes Cardio regular rhythm, S1 normal heart sound, S2 normal heart sound, no murmurs, no rub, no gallops and no clicks; Negative for regular rate Cardio Narrative: Tachycardic GI normal to inspection, nondistended, normoactive bowel sounds and soft to palpation GI Narrative: Mild tenderness in epigastrium, no rebound Extremity no clubbing, cyanosis or edema Extremity Narrative: 2+ pedal pulses Neuro moves all extremities and no focal motor deficits Neuro Narrative: Mild tremor, ambulates independently, speech is slightly slurred due to intoxication Psych affect normal Psych Narrative: Thankful for treatment, interacts appropriately Results Lab / Micro Data 06/24/25 14:10 06/24/25 14:30 Labs: Laboratory Results - last 24 hr 06/24/25 14:10: WBC 13.8 H, RBC 3.68 L, Hgb 13.2, Hct 38.0 L, MCV 103.3 H, MCH 35.9 H, MCHC 34.7, RDW Std Deviation 55.8 H, RDW Coeff of Brodie 14.7 H, Plt Count 302, MPV 11.0, Immature Gran % (Auto) 0.900, Neut % (Auto) 79.1 H, Lymph % (Auto) 12.7 L, Iroquois % (Auto) 6.4, Eos % (Auto) 0.3, Baso % (Auto) 0.6, Absolute Neuts (auto) 10.9 H, Absolute Lymphs (auto) 1.75, Nucleated RBC % 0 06/24/25 14:30: Sodium 134, Potassium 3.4, Chloride 97 L, Carbon Dioxide 21.4, Anion Gap 16 H, BUN 7, Creatinine 0.52 L, Estim Creat Clear Calc 228.31, Est GFR (MDRD) Non-Af 131, BUN/Creatinine Ratio 12.6, Glucose 110 H, Calcium 7.7, Troponin T High Sens < 6 06/24/25 15:42: PT 15.5 H, INR 1.2, APTT 32.8, Total Bilirubin 6.46 H, Direct Bilirubin 5.04 H, AST 251 H, ALT 36, Alkaline Phosphatase 778 H, NT pro BNP II <36, Total Protein 6.5, Albumin 2.5 L, Globulin 4.0, Lipase 117 H 06/24/25 16:28: Troponin T Hi Sens 2 Hr 7 06/24/25 : Ethyl Alcohol 319.0 H* Imaging Radiology Impression Chest X-Ray 06/24/25 14:45 IMPRESSION: No focal consolidation. Reading Location: [facility] Abdomen/Pelvis CT 06/24/25 15:10 IMPRESSION: Extensive hepatic steatosis and question cirrhosis. Hepatomegaly. Moderate ascites. Acute hepatitis is not entirely excluded. Gallbladder wall is thickened which may be reactive to adjacent inflamed hepatictissue. Scattered mild thickening of the small bowel wall which may reflect enteritis. Small hiatal hernia. Reading Location: [facility] Gallbladder Ultrasound 06/24/25 16:27 IMPRESSION: Hepatomegaly and hepatic steatosis. Question nodular liver contour which may reflect cirrhosis. Nonspecific dilation of the CBD. Ascites noted. No acute cholecystitis. Reading Location: [facility] Assessment & Plan Assessment/Plan (1) Admitted to alcohol detoxification center: (2) Alcohol abuse: (3) Alcoholic hepatitis: (4) Leukocytosis: (5) Tachycardia: PLAN: Plan Alcohol abuse with pending alcohol withdrawal - Patient drinks a gallon of vodka every 2 days - Has never been through alcohol detoxification previously - Phenobarbital taper as ordered - As needed Ativan with CIWA - Supportive medications for symptoms related alcohol withdrawal - Start thiamine and folate - 180 consultation for assistance with discharge planning - case management/social work consultation for assistance with discharge planning Alcoholic hepatitis/cirrhosis - Patient with markedly elevated LFTs and bilirubin - Maddrey score is 24 so not a candidate for steroids - Patient does have moderate ascites and may need to start diuretic once he is more clinically stable - Could consider nadolol as well - Suggest referral to GI after discharge Leukocytosis - Suspect reactive - No signs of infection - Monitor clinically with repeat lab in a.m. Tachycardia - Related to alcohol withdrawal - Monitor History of cocaine abuse - Patient denies any ongoing use since he has gone through rehab DVT prophylaxis - Low risk - Encourage frequent and early ambulation CODE STATUS - Full code Charges/Coding Visit Charges Inpatient E&M: 10882 Init Hosp L2 06/24/252110 <Electronically signed by Sahsa Alegre DO> Cosigner Signature (if applicable): CC: Dr. Sasha Alegre DO; No Primary Care Physician~ Signed [facility] Work Phone: Progress note Author J Carlos Chamberlain [facility] Note Date/Time June 25, 2025 1 0:30am [facility] Medical Records Department [address] [place] [address] Progress Note - Hospitalist 06/25/25 1026 MR#: [id number] Acct: [id number] Name: YUDI MCGOWAN Rep #:[id number] : 1985 39 From: J Carlos heller MD PCP: Care Physician,No Primary Status :ADM IN Location: MS3 [id number] Subjective Subjective A little hypertensive overnight but his CIWA score is a 9 if he remains hypertensive as his CIWA score normalizes may consider adjusting medications Objective Data Objective Data Vital Signs: Vital Signs Temp Pulse Resp BP Pulse Ox O2 Del Method 97.7 F L 124 H 18 166/127 H 95 Room Air 06/25/25 08:34 06/25/25 08:34 06/25/25 08:34 06/25/25 08:34 06/25/25 08:34 06/25/25 08:34 Oxygen Delivery Method Room Air Weight: 202 lb 6.15 oz Body Mass Index (BMI) 29.0 Intake & Output: Intake and Output for Last 24 Hours 06/24/25 06/25/25 06/26/25 03:59 03:59 03:59 Intake Total 1010 / 1010 1600 / 1600 Output Total 400 / 400 Balance 1010 / 1010 1200 / 1200 Lab / Micro Data 06/25/25 06:25 06/25/25 06:25 Labs: Laboratory Results - last 24 hr 06/24/25 14:10: WBC 13.8 H, RBC 3.68 L, Hgb 13.2, Hct 38.0 L, MCV 103.3 H, MCH 35.9 H, MCHC 34.7, RDW Std Deviation 55.8 H, RDW Coeff of Brodie 14.7 H, Plt Count 302, MPV 11.0, Immature Gran % (Auto) 0.900, Neut % (Auto) 79.1 H, Lymph % (Auto) 12.7 L, Iroquois % (Auto) 6.4, Eos % (Auto) 0.3, Baso % (Auto) 0.6, Absolute Neuts (auto) 10.9 H, Absolute Lymphs (auto) 1.75, Nucleated RBC % 0 06/24/25 14:30: Sodium 134, Potassium 3.4, Chloride 97 L, Carbon Dioxide 21.4, Anion Gap 16 H, BUN 7, Creatinine 0.52 L, Estim Creat Clear Calc 228.31, Est GFR (MDRD) Non-Af 131, BUN/Creatinine Ratio 12.6, Glucose 110 H, Calcium 7.7, Troponin T High Sens < 6 06/24/25 15:42: PT 15.5 H, INR 1.2, APTT 32.8, Total Bilirubin 6.46 H, Direct Bilirubin 5.04 H, AST 251 H, ALT 36, Alkaline Phosphatase 778 H, NT pro BNP II <36, Total Protein 6.5, Albumin 2.5 L, Globulin 4.0, Lipase 117 H 06/24/25 16:28: Troponin T Hi Sens 2 Hr 7 06/24/25 18:26: Troponin T Hi Sens 4Hr 8 06/24/25 : Ethyl Alcohol 319.0 H* 06/25/25 00:23: Urine Color Eli, Urine Clarity Clear, Urine pH 6.5, Ur Specific [place] 1.015, Urine Protein 30 H, Urine Glucose (UA) Normal, Urine Ketones Negative, Urine Occult Blood 10 H, Urine Nitrite Positive H, Urine Bilirubin 6 H, Urine Urobilinogen 12 H, Ur Leukocyte Esterase 25 H, Urine RBC 0-5 SEEN, Urine WBC 0 SEEN, Ur Squamous Epith Cells 0-5 SEEN, Amorphous Sediment 1+, Urine Bacteria 2+, Urine Mucus 1+, Urine Opiates Screen PRESUMPTIVE POSITIVE, U Buprenorphine Qual NEGATIVE, Ur Oxycodone Screen NEGATIVE, Urine Methadone Screen NEGATIVE, Urine Fentanyl Screen NEGATIVE, Ur Barbiturates Screen NEGATIVE, Ur Phencyclidine Scrn NEGATIVE, Ur Amphetamines Screen PRESUMPTIVE POSITIVE, U Benzodiazepines Scrn PRESUMPTIVE POSITIVE, Urine CocaineScreen NEGATIVE, U Cannabinoids Screen NEGATIVE 06/25/25 06:25: WBC 10.3, RBC 3.40 L, Hgb 11.9 L, Hct 35.3 L, MCV 103.8 H, MCH 35.0 H, MCHC 33.7, RDW Std Deviation 56.5 H, RDW Coeff of Brodie 14.8 H, Plt Count 215, MPV 11.0, Immature Gran % (Auto) 0.600, Neut % (Auto) 80.4 H, Lymph % (Auto) 9.9 L, Iroquois % (Auto) 8.3, Eos % (Auto) 0.2, Baso % (Auto) 0.6, Absolute Neuts (auto) 8.3 H, Absolute Lymphs (auto) 1.01, Nucleated RBC % 0, Sodium 134, Potassium 3.7, Chloride 99, Carbon Dioxide 21.1, Anion Gap 14, BUN 7, Creatinine0.50 L, Estim Creat Clear Calc 223.67, Est GFR (MDRD) Non-Af 132, BUN/CreatinineRatio 14.7, Glucose 92, Calcium 7.7, Phosphorus 2.0 L, Magnesium 1.6, Total Bilirubin 6.97 H, AST 226 H, ALT 35, Alkaline Phosphatase 766 H, Total Protein 6.5, Albumin 2.5 L, Globulin 3.9, Albumin/Globulin Ratio 0.6 L, TSH 3.940 Radiography Diagnostic Testing: Radiology Impression Chest X-Ray 06/24/25 14:45 IMPRESSION: No focal consolidation. Reading Location: [facility] Abdomen/Pelvis CT 06/24/25 15:10 IMPRESSION: Extensive hepatic steatosis and question cirrhosis. Hepatomegaly. Moderate ascites. Acute hepatitis is not entirely excluded. Gallbladder wall is thickened which may be reactive to adjacent inflamed hepatictissue. Scattered mild thickening of the small bowel wall which may reflect enteritis. Small hiatal hernia. Reading Location: [facility] Gallbladder Ultrasound 06/24/25 16:27 IMPRESSION: Hepatomegaly and hepatic steatosis. Question nodular liver contour which may reflect cirrhosis. Nonspecific dilation of the CBD. Ascites noted. No acute cholecystitis. Reading Location: [facility] Physical Exam Narrative General: Alert, Oriented x3, Cooperative, mild restlessness HEENT: Atraumatic, PERRLA, EOMI, Normocephalic Oral: Moist Mucosa Neck: Supple, No JVD Lungs: Clear to auscultation, Normal air movement, No rhonchi, No wheeze, No rales Cardiovascular: Regular rate, Regular Rhythm, Normal S1, Normal S2, No murmurs Abdomen: Soft, Non Tender, Non-Distended, No Hepato-splenomegaly Extremities: No edema, Capillary Refill Less than 3 Seconds Skin: No rashes, No breakdown Musculoskeletal: No Tenderness to Palpation of Joints or Extremities Neurological: No focal neurological deficits, moves all extremities, slight tremors Psych/Mental Status: Anxious Assessment & Plan Assessment/Plan (1) Alcohol abuse: PLAN: Plan 1. Alcohol abuse requesting detox with alcoholic hepatitis with a reactive leukocytosis ? CIWA score of 9 today ? Continue with the alcohol withdrawal protocol ? Will follow CMP in the morning, bilirubin still little bit elevated though does not require steroids at this time 2. Hypophosphatemia ? Will replace with potassium phosphate today DVT: Ambulation Charges/Coding Visit Charges Inpatient E&M: 04662 Subs Hosp L2 06/25/25 1030 <Electronically signed by J Carlos Chamberlain MD> Cosigner Signature (if applicable): CC: ~ Signed [facility] Work Phone: Progress note Author J Carlos Chamberlain [facility] Note Date/Time June 26, 2025 9 :16am [facility] Medical Records Department [address] [place] [address] Progress Note - Hospitalist 06/26/25910 MR#: [id number] Acct: [id number] Name: YUDI MCGOWAN Rep #:[id number] : 1985 39 From: J Carlos heller MD PCP: Care Physician,No Primary Status :ADM IN Location: [facility] [id number] Subjective Subjective CIWA score of 8, blood pressures are still mildly elevated Objective Data Objective Data Vital Signs: Vital Signs Temp Pulse Resp BP Pulse Ox O2 Del Method 98.2 F 134 H 18 147/116 H 96 Room Air 06/26/25 08:59 06/26/25 08:59 06/26/25 08:59 06/26/25 08:59 06/26/25 08:59 06/26/25 08:59 Oxygen Delivery Method Room Air Weight: 208 lb 5.389 oz Body Mass Index (BMI) 29.8 Intake & Output: Intake and Output for Last 24 Hours 06/25/25 06/26/25 06/27/25 03:59 03:59 03:59 Intake Total 1010 / 1010 3157 / 3157 500 / 500 Output Total 1200 / 1200 Balance 1010 / 1010 1957 / 1957 500 / 500 Lab / Micro Data 06/25/25 06:25 06/26/25 06:06 Labs: Laboratory Results - last 24 hr 06/26/25 06:06: Sodium 131 L, Potassium 3.4, Chloride 97 L, Carbon Dioxide 22.2,Anion Gap 12, BUN 7, Creatinine 0.56 L, Estim Creat Clear Calc 202.38, Est GFR (MDRD) Non-Af 128, BUN/Creatinine Ratio 12.2, Glucose 104 H, Calcium 7.9, Total Bilirubin 8.37 H, AST 192 H, ALT 31, Alkaline Phosphatase 756 H, Total Protein 6.5, Albumin 2.5 L, Globulin 4.0, Albumin/Globulin Ratio 0.6 L Physical Exam Narrative General: Alert, Oriented x3, Cooperative, mild restlessness HEENT: Atraumatic, PERRLA, EOMI, Normocephalic Oral: Moist Mucosa Neck: Supple, No JVD Lungs: Clear to auscultation, Normal air movement, No rhonchi, No wheeze, No rales Cardiovascular: Regular rate, Regular Rhythm, Normal S1, Normal S2, No murmurs Abdomen: Soft, Non Tender, Non-Distended, No Hepato-splenomegaly Extremities: No edema, Capillary Refill Less than 3 Seconds Skin: No rashes, No breakdown Musculoskeletal: No Tenderness to Palpation of Joints or Extremities Neurological: No focal neurological deficits, moves all extremities, slight tremors Psych/Mental Status: Anxious Assessment & Plan Assessment/Plan (1) Alcohol abuse: PLAN: Plan 1. Alcohol abuse requesting detox with alcoholic hepatitis with a reactive leukocytosis ? CIWA score of 9 today ? Continue with the alcohol withdrawal protocol ? Will follow CMP in the morning, bilirubin still little bit elevated though does not require steroids at this time DVT: Ambulation Charges/Coding Visit Charges Inpatient E&M: 72313 Subs Hosp L2 06/26/25 0916 <Electronically signed by J Carlos Chamberlain MD> Cosigner Signature (if applicable): CC: ~ Signed [facility] Work Phone: Reason for referral (narrative)No reason for referral information availableWWilson Health Work Phone: Summary Purpose Family History No Family History Records FoundNo Family History Records Found No data available for this section No Family History Records Found Advance Directives No Advanced Directives Records Found Advance Directive Response Recorded Date/ Time Do you have a Healthcare Power of Seed Expert? No June 24, 2025 8:17pm Chief Complaint and Reason for Visit Chief Complaint Admit Date ETOH DETOX June 24, 2025 6 :48pm ETOH DETOX June 24, 2025 6 :54pm ETOH DETOX June 25, 2025 1 0:26am ETOH DETOX June 26, 2025 9 :11am ETOH DETOX June 27, 2025 2 :16pm Reason for Visit Admit Date Admitted to alcohol detoxification wai r June 24, 2025 6:48pm Alcohol abuse June 24, 2025 6 :48pm Alcoholic hepatitis June 24, 2025 6 :48pm Leukocytosis June 24, 2025 6 :48pm Tachycardia October 13th, 2025 6 :48pm Additional Source Comments (unrecognized sect ion and content) No Status Records FoundNo Status Records FoundNo Status Records Found INFORMATION SOURCE (unrecogn ized section and content) DATE CREATED AUTHOR 01/08/2019 [facility] ([place]) DATE CREATED AUTHOR AUTHOR'S ORGANIZ ATION 07/04/2025 [facility] DATE CREATED AUTHOR AUTHOR'S ORGANIZ ATION 07/19/2025 [facility] Care Teams (unrecognized sec tion and content) Team Status: Active Member Role/Relationship Status Dates No Primary Care Physician Primary care physician Activ e Team Status: Inactive Member Role/Relationship Status Dates Dr. Mike Laird DO Emergency Department Physician Active Start: June 24, 2025 End: June 27, 2025 No Primary Care Physician Primary care physician Activ e Start: June 24, 2025 End: June 27, 2025 Dr. Sasha Alegre , Admitting physician Active Start: June 24, 2025 End: June 27, 2025 Dr. Sasha Alegre , Nurse Practitioner Active S tart: June 24, 2025 End: June 27, 2025 Dr. J Carlos Chamberlain MD Attending physician Active Start: June 24, 2025 End: June 27, 2025 Team Status: Active Member Role/Relationship Status Dates Dr. Mike Laird DO Emergency Department Physician Active Start: June 24, 2025 No Primary Care Physician Primary care physician Activ e Start: June 24, 2025 Dr. Sasha Alegre , Admitting physician Active Start: June 24, 2025 Dr. Sasha Alegre , Attending physician Active Start: June 24, 2025 Dr. Sasha Alegre , DO Nurse Practitioner Active S tart: June 24, 2025 Team Status: Active Member Role/Relationship Status Dates Dr. Mike Laird DO Emergency Department Physician Active Start: June 25, 2025 No Primary Care Physician Primary care physician Activ e Start: June 25, 2025 Dr. Sasha Alegre , Admitting physician Active Start: June 25, 2025 Dr. Sasha Alegre , DO Nurse Practitioner Active S tart: June 25, 2025 Dr. J Carlos Chamberlain MD Attending physician Active Start: June 25, 2025 Dr. J Carlos Chamberlain MD Nurse Practitioner Active Start: June 25, 2025 Team Status: Active Member Role/Relationship Status Dates Dr. Mike Laird DO Emergency Department Physician Active Start: June 26, 2025 No Primary Care Physician Primary care physician Activ e Start: June 26, 2025 Dr. Sasha Alegre DO Admitting physician Active Start: June 26, 2025 Dr. Sasha Alegre DO Nurse Practitioner Active S tart: June 26, 2025 Dr. J Carlos Chamberlain MD Attending physician Active Start: June 26, 2025 Dr. J Carlos Chamberlain MD Nurse Practitioner Active Start: June 26, 2025 Team Status: Active Member Role/Relationship Status Dates Dr. Mike Laird DO Emergency Department Physician Active Start: June 27, 2025 No Primary Care Physician Primary care physician Activ e Start: June 27, 2025 Dr. Sasha Alegre DO Admitting physician Active Start: June 27, 2025 Dr. Sasha Alegre DO Nurse Practitioner Active S tart: June 27, 2025 Dr. J Carlos Chamberlain MD Attending physician Active Start: June 27, 2025 Dr. J Carlos Chamberlain MD Nurse Practitioner Active Start: June 27, 2025 FOR RECORDS PERTAINING TO PATIENTS WHO ARE OR HAVE BEEN ENROLLED IN A CHEMICAL DEPENDENCY/SUBSTANCEABUSE PROGRAM, SOME INFORMATION MAY BE OMITTED. This clinical summary was aggregated from multiple sources. Caution should be exercised in using it in the provision of clinical care. This summary normalizes information from multiple sources, and as a consequence, information in this document may materially change the coding, format and clinical context of patient data. In addition, data may be omitted in some cases. CLINICAL DECISIONS SHOULD BE BASED ON THE PRIMARY CLINICAL RECORDS. [employer] provides no warranty or guarantee of the accuracy or completeness of information in this document.
--- NOTE | 2025-07-23 18:19 | EX.ED.DYSGE1 ---
HPI History of Present Illness Chief Complaint: ETOH Intox Detail of Chief Complaint: Alcohol abuse and mental status change Informant: EMS Narrative Narrative: Patient presents from home where roommate called for mental status change and patient had been drinking alcohol. Apparently has a history of alcohol abuse and has been in and out of the hospital for the last month multiple admissions. He is signed out AGAINST MEDICAL ADVICE in the past. He really cannot give me any history. He was moaning on arrival and vomiting blood looked like coffee ground emesis. [facility] Medical History Anxiety Depression Hypertension GERD (gastroesophageal reflux disease) Substance abuse Alcohol abuse Irregular heart beat Home Medications Medication Instructions Recorded Last Taken Type NK 06/24/25 Unknown History Allergy/AdvReac Type Severity Reaction Status Date / Time No Known Allergies Allergy Verified 06/24/25 13:50 Social History (Updated 06/24/25 @ 21:[address] Sasha Alegre DO) Smoking Status: Former smoker alcohol intake: current alcohol intake frequency: other Alcohol type: hard liquor details: Patient drinks 1 gallon of vodka every 2 days substance use type: former substance user Date of last use: Cocaine ROS ROS ED Review of Systems ROS Unobtainable: due to mental condition EXAM Physical Exam Const Positive well nourished and well developed General Appearance ED: well developed and NAD HEENT Reports TM's clear and moist mucous membranes normocephalic and atraumatic; Negative for trauma or tenderness Tympanic Membrane ED: Yes TM's clear Eyes PERRL and EOMs intact bilaterally General Eye ED: Yes scleral icterus; Negative for pale conjunctiva Neck no lymphadenopathy, supple and no JVD General: Negative for tenderness Chest Wall inspection of chest normal and palpation of chest normal Chest: Negative for tenderness Resp normal respiratory effort and clear to auscultation bilaterally Effort and Inspection: Negative for respiratory distress or pain with movement Auscultation: Negative for rhonchi, wheezes or diminished lung sounds Cardio regular rate, regular rhythm, S1 normal heart sound, S2 normal heart sound and no murmurs Peripheral Pulses: pulses 2+ throughout GI normal to inspection, nondistended, normoactive bowel sounds, soft to palpation, non-tender, non-distended and no masses GI Narrative: Varicosities noted on abdomen and the abdomen was distended. Patient was actively vomiting coffee-ground emesis. Back/Spine no CVA tenderness and no thoracic nor lumbar tenderness Extremity normal to inspection General Extremety ED: Negative for edema General Extremity: Negative for edema Neuro No oriented x3, No CN's II-XII intact bilaterally, no sensory deficits noted and gait normal Neuro Narrative: Patient not responding and not following commands. He was moaning. Sensorium / Orientation: awake; Negative for alert, oriented to person, oriented to place or oriented to time Motor Exam: Negative for strength 5/5 throughout or strength abnormal Psych mental status grossly normal Skin no rashes or lesions noted and no wounds MDM MDM MDM Narrative Medical decision making narrative: Patient presents via EMS obtunded and vomiting coffee-ground emesis. He was placed on a monitor. Patient had an IV line established by EMS and was getting normal saline fluid boluses. While I was evaluating the patient he went into cardiac arrest and lost pulse. He stopped breathing. He was actively vomiting large amount of bloody emesis. Decision was made to intubate. He was given etomidate 20 mg IV and succinylcholine 100 mg IV. I was able to suction the oropharynx and intubated with a 7.5 ET tube. Large amount of emesis was suctioned from the endotracheal tube as well. Patient was being bagged. Patient had CPR established and was treated with epinephrine. Multiple rounds of epinephrine and also sodium bicarb given. Continued CPR. Patient continued to be in PEA. Time of was called at 1819. Critical Care Time Critical Care Time: Yes Critical care time (excluding procedures): 30-74 minutes, Including time spent:, Discussing w/Patient &/or Family/Comic Book Writer and Performing Direct Patient Care at Bedside Discharge Plan Triage Chief Complaint: ETOH Intox ED Provider: Jamie Skinner Dx/Rx/DC Orders Clinical Impression: Cardiac arrest, Prescriptions: No Action NK Primary Care Provider: Care Physician,No Primary Referrals: Care Physician,No Primary [Primary Care Provider, Medical] Print Language: Persian D/C Safety Score for UGIB Assessment [place] Bleeding Score (GBS): Stratifies upper GI bleeding patients who are "low-risk" and candidates for outpatient management. Sex: Male Total Risk Score: 2 Score Interpretation: Score of 0: A GBS of 0 is a “Low Risk” GI bleed, and is highly sensitive (99.6% in a 2007 retrospective study) for predicting which patients did not require any “medical intervention”: blood transfusion, endoscopy, or surgery. This was confirmed in a 2009 Lanc study where patients with a score of 0 were actually discharged and had no GI bleeding mortality at 6 month followup Score above 0: A GBS greater than zero suggests a “High Risk” GI bleed that is likely to require “medical intervention”: transfusion, endoscopy, or surgery. A higher GBS also correlated with a higher likelihood of needing intervention Scores >/= 6 are associated with >50% risk of needing intervention D/C Safety Score for LGIB Assessment Assessment Tool: Readmission and adverse event risk in patients with acute lower GI bleeding. Age, in years: 40-69 Sex: Male Probability of safe discharge: 99% Total Risk Score: 2 Score Interpretation: Probability Percentage of safe discharge (absence of rebleeding, blood transfusion, therapeutic intervention, 28 day readmission, or ) Score of 8 or below: Consider discharge, with appropriate precautions. Score of 9 or above: Discharge NOT recommended. Consider admission with further workup and resuscitation as necessary.
[2025-07-23 19:00] VITALS: BP 0/0; PULSE 0; RESP 0; TEMP -17.7; TEMP 0; O2SAT 0
--- NOTE | 2025-07-23 19:46 | CM.ED ---
Social Work Reason for visit: Allyssa John ERICA met with patients parents after patient had been pronounced . Parents stated that patient has been an alcoholic for many years, that patient used to live with them but they had to kick him out due to the excessive alcohol use. Parents stated that patient has children and the children would come to the house to visit and it was too much to have patient there too. Parents stated they knew his health was poor, that patient had left hospital AMA recently. Parents stated they knew patient was now at peace. Emotional support provided. Celine Oswald, GRA[employer], [employer]OL[employer]
[2025-07-23 21:51] VITALS: PULSE 0
== END 2025-07-23 21:53 ==
PROVIDERS: Emergency Provider Emergency Medicine; PCP Student in an Organized Health Care Education/Training Program; Visit Provider Emergency Medicine
DX: I46.9 Cardiac arrest, cause unspecified (principal); K92.0 Hematemesis; F10.129 Alcohol abuse with intoxication, unspecified; Y90.9 Presence of alcohol in blood, level not specified; Z87.891 Personal history of nicotine dependence
CPT/HCPCS: 31500; 92950; 99283; A4216